=== PATIENT | female | born 1985 | race Caucasian/White ===

== ENCOUNTER 2016-09-09 12:26 | Emergency (ER) | payer OTHER ==
[2016-09-09] MEDS ORDERED: DEXAMETHASONE 4 MG TAB PO STA (12:52)
[2016-09-09] MEDS ORDERED: IPRATROPIUM-ALBUTEROL 3 ML NEB INHALATION STA (12:52)
--- NOTE | 2016-09-09 13:00 | ED ---
General Adult HPI - General Chief complaint: Upper Respiratory Infection Stated complaint: cough Time Seen by Provider: 09/09/16 12:40 Source: patient, RN notes reviewed Mode of arrival: ambulatory Limitations: no limitations - History of Present Illness Initial comments: 31-year-old female presenting for cough and congestion. Patient states symptoms began about a week ago and have been progressively worsening. She states that she has nonproductive cough. She does feel some mild wheezing and shortness of breath as well. She states she's developed some chest pain when she coughs. She denies any chest pressure. She denies any significant medical history. She does admit to tobacco abuse. She denies any fevers or chills. She denies any abdominal pain or nausea or vomiting. - Related Data Home Medications Medication Instructions Recorded Confirmed ARIPiprazole [Abilify] 5 mg PO DAILY 09/09/16 09/09/16 Cholecalciferol [Vitamin D3] 5,000 unit PO DAILY 09/09/16 09/09/16 Cyanocobalamin (Vitamin B-12) 10,000 mcg PO DAILY 09/09/16 09/09/16 [Vitamin B12] Famotidine [Pepcid] 20 mg PO BID 09/09/16 09/09/16 Previous Rx's Medication Instructions Recorded PARoxetine HCL [Paxil] 40 mg PO DAILY #7 tablet 07/15/16 Albuterol Inhaler [Ventolin Hfa 2 puff INHALATION Q6HR PRN #1 09/09/16 Inhaler] inhaler Azithromycin [Zithromax] 250 mg PO DAILY #6 tab 09/09/16 Benzonatate [Tessalon Perles] 100 mg PO TID PRN #16 cap 09/09/16 Allergies Allergy/AdvReac Type Severity Reaction Status Date / Time Penicillins Allergy Rash/Hives Verified 09/09/16 12:58 Review of Systems ROS Statement: Those systems with pertinent positive or pertinent negative responses have been documented in the HPI. ROS Other: All systems not noted in ROS Statement are negative. Past Medical History Past Medical History: Unable to Obtain Additional Past Medical History / Comment(s): migraines, scoliosis, chronic back pain, arthritis History of Any Multi-Drug Resistant Organisms: None Reported Past Surgical History: No Surgical Hx Reported Additional Past Surgical History / Comment(s): dental surgery Past Psychological History: Anxiety, Bipolar, Depression Additional Psychological History / Comment(s): Patient open with [facility] Smoking Status: Current every day smoker Past Alcohol Use History: None Reported Additional Past Alcohol Use History / Comment(s): Patient is a smoker of half pack a day for 15 years. She denies any medical marijuana, marijuana or street drug use although her drug screen is positive for cocaine and marijuana and methamphetamines. Patient states she is single. She has one son that she states has no major medical problems. Past Drug Use History: None Reported Additional Drug Use History / Comment(s): Patient states she has an alcoholic patient about once a week. General Exam - General Exam Comments Initial Comments: General: Awake and Alert. No acute distress. Does not appear acutely ill. Eyes: HANDY, EOM intact. No nystagmus. No scleral icterus. HENT: Atraumatic, normocephalic. Mucous membranes moist. Trachea midline. Neck: The neck is supple, there is no tenderness or JVD. Cardiovascular: Regular rate and rhythm. No murmur, rub, or gallop is appreciated. Distal pulses intact. Respiratory: Lungs are clear to auscultation bilaterally. There are mild diffuse expiratory wheezes. No rales, rhonchi. No respiratory distress. Gastrointestinal: Soft, Nontender. No rebound or guarding. Non-distended. No masses or organomegaly noted. No CVA tenderness. Musculoskeletal: No tenderness. Normal ROM. No gross deformity. No strength deficits. Neurological: A&Ox3. CN II-XII grossly intact, There are no obvious motor or sensory deficits. Coordination appears grossly intact. Speech is normal. Skin: Skin is warm and dry and no rashes or lesions are noted. Psychiatric: Cooperative, appropriate mood & affect, normal judgment. Limitations: no limitations Course Vital Signs 09/09/16 09/09/16 09/09/16 12:37 12:46 13:12 Temperature 97.4 F L Pulse Rate 86 72 Respiratory 16 22 Rate Blood Pressure 132/79 O2 Sat by Pulse 98 Oximetry 09/09/16 09/09/16 09/09/16 13:21 13:35 14:00 Temperature 97.9 F Pulse Rate 76 85 79 Respiratory 22 20 Rate Blood Pressure 128/61 O2 Sat by Pulse 98 99 Oximetry EKG Findings - EKG Comments: EKG Findings:: EKG 13:38. Normal sinus rhythm. Rate 76. NJ 138. QRS 88. QT/ QTC 404/454. Normal axis. No STEMI. Normal EKG. Medical Decision Making - Medical Decision Making 31-year-old female presenting for URI type symptoms. Patient does have mild wheezing on exam. Was given a dose of Decadron and breathing treatment with improvement of her symptoms. EKG without evidence of ischemia. Chest x-ray was performed without evidence of pneumonia. Discussed treating likely reactive airway disease as well as viral infection. Over the counter treatments discussed. Was also written for inhaler. Discussed smoking cessation. Patient is also written for Z-Herber although we discussed waiting to see if symptoms improve prior to filling this medication as this is likely a viral infection. Discussed concerning signs symptoms requiring immediate return to the ED. Patient is agreeable to plan of discharge home. - EKG Data -: EKG Interpreted by Me EKG shows normal: sinus rhythm Rate: normal - Radiology Data Radiology results: report reviewed, image reviewed Disposition Clinical Impression: URI (upper respiratory infection), RAD (reactive airway disease), Tobacco abuse Disposition: HOME SELF-CARE Condition: Stable Prescriptions: Albuterol Inhaler [Ventolin Hfa Inhaler] 2 puff INHALATION Q6HR PRN #1 inhaler PRN Reason: Shortness Of Breath Azithromycin [Zithromax] 250 mg PO DAILY #6 tab Benzonatate [Tessalon Perles] 100 mg PO TID PRN #16 cap PRN Reason: Cough Referrals: None,Stated [Primary Care Provider] - 1-2 days Time of Disposition: 13:44
--- NOTE | 2016-09-09 13:35 | XR ---
EXAMINATION TYPE: XR chest 2V DATE OF EXAM: 09/09/2016 1:32 PM COMPARISON: 07/15/2016 HISTORY: Shortness of breath TECHNIQUE: Frontal and lateral views of the chest are obtained. FINDINGS: There is no focal air space opacity, pleural effusion, or pneumothorax seen. The cardiac silhouette size is within normal limits. The osseous structures are intact. IMPRESSION: No acute cardiopulmonary process.
[2016-09-09 13:37] VITALS: BP 128/61
[2016-09-09 14:06] VITALS: PULSE 79; RESP 20; TEMP 97.9
== END 2016-09-09 14:00 | disposition home or self-care (01) ==
LOC: EC 12:26
DX: J06.9 Acute upper respiratory infection, unspecified (principal); J45.909 Unspecified asthma, uncomplicated; F17.200 Nicotine dependence, unspecified, uncomplicated; F31.9 Bipolar disorder, unspecified; F41.9 Anxiety disorder, unspecified; Z88.0 Allergy status to penicillin
CPT/HCPCS: 99283; 94640; 93005; 71020; J8540

== ENCOUNTER 2016-09-25 18:48 | Emergency (ER) | payer OTHER ==
--- NOTE | 2016-09-25 20:15 | ED ---
General Adult HPI - General Chief complaint: Upper Respiratory Infection Stated complaint: Chest Pain Time Seen by Provider: 09/25/16 20:02 Source: patient, RN notes reviewed, old records reviewed Mode of arrival: ambulatory Limitations: no limitations - History of Present Illness Initial comments: Chief complaint history of present illness a 29-year-old female here with a complaint of cough with chest wall pain from coughing for several days with a hoarse voice. Denies a fever productive cough. Deny get a flu shot this year. No runny nose - Related Data Home Medications Medication Instructions Recorded Confirmed ARIPiprazole [Abilify] 5 mg PO DAILY 09/09/16 09/25/16 Famotidine [Pepcid] 20 mg PO BID 09/09/16 09/25/16 Previous Rx's Medication Instructions Recorded PARoxetine HCL [Paxil] 40 mg PO DAILY #7 tablet 07/15/16 Azithromycin [Zithromax Z-pack] 250 mg PO DIRECTED #6 tab 09/25/16 Promethaz-Cod 6.25-10 mg/5 ml 5 ml PO Q6HR PRN #60 bottle 09/25/16 [Phenergan with Codeine] Allergies Allergy/AdvReac Type Severity Reaction Status Date / Time Penicillins Allergy Rash/Hives Verified 09/25/16 20:13 Review of Systems ROS Statement: Those systems with pertinent positive or pertinent negative responses have been documented in the HPI. Review of systems. Patient reports that she's had a cough with hoarse voice for almost a week. Denies fever. Complains chest wall pain with coughing and deep breathing. Otherwise no nausea vomiting diarrhea. All systems are reviewed past medical problems migraines scoliosis. Surgeries dental surgery. Family history retention. Patient smoke strongly encouraged stop reports ALLERGIES to penicillin. Drink alcohol socially. ROS Other: All systems not noted in ROS Statement are negative. Past Medical History Past Medical History: Unable to Obtain Additional Past Medical History / Comment(s): migraines, scoliosis, chronic back pain, arthritis History of Any Multi-Drug Resistant Organisms: None Reported Past Surgical History: No Surgical Hx Reported Additional Past Surgical History / Comment(s): dental surgery Past Psychological History: Anxiety, Bipolar, Depression Additional Psychological History / Comment(s): Patient open with [facility] Smoking Status: Current every day smoker Past Alcohol Use History: Occasional Additional Past Alcohol Use History / Comment(s): Patient is a smoker of half pack a day for 15 years. She denies any medical marijuana, marijuana or street drug use although her drug screen is positive for cocaine and marijuana and methamphetamines. Patient states she is single. She has one son that she states has no major medical problems. Past Drug Use History: None Reported Additional Drug Use History / Comment(s): Patient states she has an alcoholic patient about once a week. General Exam - General Exam Comments Initial Comments: General: The patient is awake and alert, complaining of painful cough ongoing for one week with hoarse voice. Denies fever or headache. Vital signs show temperature 97.6 pulse 97 respiratory rate 20 pulse ox 98% room air blood pressure 117/77 Eye: Pupils are equal, round and reactive to light, extra-ocular movements are intact ; there is normal conjunctiva bilaterally. No signs of icterus. Ears, nose, mouth and throat: There are moist mucous membranes pharynx mildly red no exudate. Neck: The neck is supple, there is no tenderness , no anterior cervical lymphadenopathy, thyroid not enlarged. Cardiovascular: There is a regular rate and rhythm. No murmur, rub or gallop is appreciated. Respiratory: Lungs are clear to auscultation, respirations are non-labored, breath sounds are equal. No wheezes, stridor, rales, or rhonchi. Frequent painful coughing. Anterior chest wall increases pain back increases pain with coughing Gastrointestinal: Soft, non-distended, non-tender abdomen without masses or organomegaly noted. There is no rebound or guarding present. No CVA tenderness. Bowel sounds are unremarkable. Back: There is no tenderness to palpation in the midline. There is no obvious deformity. No rashes noted. Coughing increases back pain Musculoskeletal: Normal ROM, no tenderness, There is no pedal edema. There is no calf tenderness or swelling. Sensation intact. Neurological: No complaint of any dizziness. No focal or lateralizing findings noted on exam. Skin: Skin is warm and dry and no rashes or lesions are noted. Limitations: no limitations Course Vital Signs 09/25/16 19:06 Temperature 97.6 F Pulse Rate 97 Respiratory 20 Rate Blood Pressure 117/77 O2 Sat by Pulse 98 Oximetry Medical Decision Making - Medical Decision Making Medical decision-making. The patient's chest x-ray was done and reviewed by radiologist his impression is heart and mediastinum are normal. Lungs are clear. Diaphragm is normal. Bony thorax appears normal. Impression normal chest. No change. She presents with bronchitis type picture should be placed on a Z-Herber to be taken as directed increase fluids. Given prescription for Phenergan with codeine to help control her irritated cough. Patient was told to follow-up with family physician Disposition Clinical Impression: Bronchitis Disposition: HOME SELF-CARE Condition: Fair Instructions: Upper Respiratory Infection (ED) Additional Instructions: Increase fluids, stop smoking/she can. Take Z-Herber as directed. 1 teaspoon of Phenergan with codeine every 4-6 hours for cough. Follow-up with family physician Prescriptions: Azithromycin [Zithromax Z-pack] 250 mg PO DIRECTED #6 tab Promethaz-Cod 6.25-10 mg/5 ml [Phenergan with Codeine] 5 ml PO Q6HR PRN #60 bottle PRN Reason: When necessary cough Time of Disposition: 22:37
--- NOTE | 2016-09-25 20:33 | XR ---
EXAMINATION TYPE: XR chest 2V DATE OF EXAM: 09/25/2016 8:26 PM COMPARISON: 09/09/2016 HISTORY: Cough and congestion TECHNIQUE: Frontal and lateral views of the chest are obtained. FINDINGS: Heart and mediastinum are normal. Lungs are clear. Diaphragm is normal. Bony thorax appear s normal. IMPRESSION: Normal chest. No change.
[2016-09-25 22:55] VITALS: BP 123/85; PULSE 100; RESP 18; TEMP 98.7
== END 2016-09-25 22:54 | disposition home or self-care (01) ==
LOC: EC 18:48
DX: J40 Bronchitis, not specified as acute or chronic (principal); F31.9 Bipolar disorder, unspecified; F41.9 Anxiety disorder, unspecified; F17.200 Nicotine dependence, unspecified, uncomplicated; Z79.899 Other long term (current) drug therapy; Z88.0 Allergy status to penicillin
CPT/HCPCS: 71020; 99284

== ENCOUNTER 2016-10-02 16:41 | Emergency (ER) | payer OTHER ==
[2016-10-02 16:56] VITALS: TEMP 97.5
[2016-10-02] MEDS ORDERED: IPRATROPIUM-ALBUTEROL 3 ML NEB INHALATION STA (17:15)
[2016-10-02] MEDS ORDERED: KETOROLAC 30 MG/ML 1 ML VIAL IVP STA (17:16)
[2016-10-02] MEDS ORDERED: BUTALB/APAP/CAFF 50-325-40MG TAB PO STA (17:16)
[2016-10-02] MEDS ORDERED: diphenhydrAMINE 50 MG/ML 1 ML VIAL IM STA (17:16)
[2016-10-02] MEDS ORDERED: ONDANSETRON ODT 4 MG TAB PO STA (17:17)
[2016-10-02] MEDS ORDERED: KETOROLAC 60 MG/2 ML VIAL IM STA (17:35)
--- NOTE | 2016-10-02 17:55 | XR ---
EXAMINATION TYPE: XR chest 2V DATE OF EXAM: 10/02/2016 5:31 PM COMPARISON: 09/25/2016 HISTORY: Cough and congestion TECHNIQUE: Frontal and lateral views of the chest are obtained. FINDINGS: Heart and mediastinum are normal. Lungs are clear. Diaphragm is normal. Bony thorax is int act. IMPRESSION: Normal chest. No change.
--- NOTE | 2016-10-02 17:59 | ED ---
General Adult HPI - General Chief complaint: Upper Respiratory Infection Stated complaint: Migraine, med refill Time Seen by Provider: 10/02/16 17:01 Source: patient, RN notes reviewed Mode of arrival: ambulatory Limitations: no limitations - History of Present Illness Initial comments: 31-year-old female presents emergency Department with multiple complaints. Patient states she has migraine headache consistent with a normal migraines. Patient states it's on the right side. Patient states she has chronic migraines. She states that normally she has come to the hospital for his medications. Patient denies any relief with ibuprofen. Denies any visual changes though she states she has no photophobia. Denies any chest pain shortness breath. She states that she still has had a slight cough and some wheezing from herupper respiratory infection in which she was treated with azithromycin 7 days ago. She states it is slightly better. Patient is a daily smoker though. Patient denies any vomiting, diarrhea. Patient has a focal weakness. - Related Data Home Medications Medication Instructions Recorded Confirmed ARIPiprazole [Abilify] 5 mg PO DAILY 09/09/16 10/02/16 Cholecalciferol [Vitamin D3] 5,000 unit PO DAILY 10/02/16 10/02/16 Previous Rx's Medication Instructions Recorded PARoxetine HCL [Paxil] 40 mg PO DAILY #7 tablet 07/15/16 methylPREDNISolone [Medrol Dose 4 mg PO DIRECTED #1 pack 10/02/16 Pack] Allergies Allergy/AdvReac Type Severity Reaction Status Date / Time Penicillins Allergy Rash/Hives Verified 10/02/16 17:03 Review of Systems ROS Statement: Those systems with pertinent positive or pertinent negative responses have been documented in the HPI. ROS Other: All systems not noted in ROS Statement are negative. Past Medical History Past Medical History: Unable to Obtain Additional Past Medical History / Comment(s): migraines, scoliosis, chronic back pain, arthritis History of Any Multi-Drug Resistant Organisms: None Reported Past Surgical History: No Surgical Hx Reported Additional Past Surgical History / Comment(s): dental surgery Past Psychological History: Anxiety, Bipolar, Depression Additional Psychological History / Comment(s): Patient open with [facility] Smoking Status: Current every day smoker Past Alcohol Use History: Occasional Additional Past Alcohol Use History / Comment(s): Patient is a smoker of half pack a day for 15 years. She denies any medical marijuana, marijuana or street drug use although her drug screen is positive for cocaine and marijuana and methamphetamines. Patient states she is single. She has one son that she states has no major medical problems. Past Drug Use History: None Reported Additional Drug Use History / Comment(s): Patient states she has an alcoholic patient about once a week. General Exam Limitations: no limitations General appearance: alert, in no apparent distress Head exam: Present: atraumatic, normocephalic, normal inspection Eye exam: Present: normal appearance, PERRL, EOMI. Absent: scleral icterus, conjunctival injection, periorbital swelling ENT exam: Present: normal exam, normal oropharynx, mucous membranes moist, TM's normal bilaterally, normal external ear exam Neck exam: Present: normal inspection, full ROM. Absent: tenderness, meningismus, lymphadenopathy Respiratory exam: Present: wheezes. Absent: normal lung sounds bilaterally, respiratory distress, rales, rhonchi, stridor Cardiovascular Exam: Present: regular rate, normal rhythm, normal heart sounds. Absent: systolic murmur, diastolic murmur, rubs, gallop, clicks GI/Abdominal exam: Present: soft, normal bowel sounds. Absent: distended, tenderness, guarding, rebound, rigid Neurological exam: Present: alert, oriented X3, CN II-XII intact, reflexes normal. Absent: motor sensory deficit Skin exam: Present: warm, dry, intact, normal color. Absent: rash Course Vital Signs 10/02/16 10/02/16 10/02/16 16:53 17:46 17:53 Temperature 97.5 F L Pulse Rate 89 68 70 Respiratory 18 Rate Blood Pressure 131/80 O2 Sat by Pulse 98 Oximetry Medical Decision Making - Medical Decision Making 31-year-old female presents emergency department tingling headache. Patient states her headache is slightly improved that she is requesting further pain medication. Patient be given additional meds discharge. Patient has no neurological deficits. Patient's headache consistent with her prior headaches. Patient's chest x-ray shows no acute abnormality. He states that she does feel better after breathing treatment. Patient was counseled detailed quit smoking 5 minutes. Patient was started on a Medrol Dosepak at this time. Disposition Clinical Impression: Acute bronchospasm, URI (upper respiratory infection), Migraine Disposition: HOME SELF-CARE Condition: Stable Instructions: Migraine Headache (ED) Additional Instructions: Please return to the Emergency Department if symptoms worsen or any other concerns. Prescriptions: methylPREDNISolone [Medrol Dose Pack] 4 mg PO DIRECTED #1 pack Time of Disposition: 18:03
[2016-10-02] MEDS ORDERED: HYDROcodone/APAP 5-325MG 1 EACH TAB PO STA (18:01)
[2016-10-02 18:13] VITALS: BP 120/67; PULSE 72; RESP 16
== END 2016-10-02 18:13 | disposition home or self-care (01) ==
LOC: EC 16:41
DX: J98.01 Acute bronchospasm (principal); G43.909 Migraine, unspecified, not intractable, without status migrainosus; J06.9 Acute upper respiratory infection, unspecified; F31.9 Bipolar disorder, unspecified; F41.9 Anxiety disorder, unspecified; F17.200 Nicotine dependence, unspecified, uncomplicated; Z79.899 Other long term (current) drug therapy; Z88.0 Allergy status to penicillin
CPT/HCPCS: 94640; 71020; 99283; 96372 ×2; J1200; J1885

== ENCOUNTER 2016-10-13 07:11 | Emergency (ER) | payer OTHER ==
[2016-10-13 07:20] VITALS: TEMP 98.2
[2016-10-13] MEDS ORDERED: IPRATROPIUM-ALBUTEROL 3 ML NEB INHALATION STA (07:37)
[2016-10-13] MEDS ORDERED: predniSONE 50 MG TAB PO STA (07:38)
--- NOTE | 2016-10-13 07:45 | ED ---
URI HPI - General Chief Complaint: Upper Respiratory Infection Stated Complaint: SOB Time Seen by Provider: 10/13/16 07:30 Source: patient, RN notes reviewed Mode of arrival: ambulatory Limitations: no limitations - History of Present Illness Initial Comments: This is a 29-year-old female who presents with complaints of a dry cough hot and cold flashes and feelings of her respiratory infection with some left ear pain. She denies any overt fevers chills or sweats she states she recently was treated with antibiotics and cough medication he got better than came back. Patient does admit to being a daily smoker. She does have an inhaler that she does use sometimes at home. She also complains of left anterior and right posterior chest discomfort. Somewhat sharp and increases with breathing and coughing. Patient also states she is on Depo-Provera and is not MD Complaint: cough - Related Data Home Medications Medication Instructions Recorded Confirmed ARIPiprazole [Abilify] 5 mg PO DAILY 09/09/16 10/13/16 Cholecalciferol [Vitamin D3] 5,000 unit PO DAILY 10/02/16 10/13/16 Fluticasone Nasal [place] [Flonase 1 spray EA NOSTRIL DAILY 10/13/16 10/13/16 Nasal [place]] Ibuprofen [Motrin] 800 mg PO TID PRN 10/13/16 10/13/16 Loratadine [Loratadine] 10 mg PO DAILY 10/13/16 10/13/16 Previous Rx's Medication Instructions Recorded PARoxetine HCL [Paxil] 40 mg PO DAILY #7 tablet 10/02/16 Ciprofloxacin HCl [Cipro] 500 mg PO Q12HR #10 tablet 10/13/16 predniSONE 20 mg PO BID #10 tab 10/13/16 Allergies Allergy/AdvReac Type Severity Reaction Status Date / Time Penicillins Allergy Rash/Hives Verified 10/13/16 07:20 Review of Systems ROS Statement: Those systems with pertinent positive or pertinent negative responses have been documented in the HPI. ROS Other: All systems not noted in ROS Statement are negative. Past Medical History Past Medical History: Unable to Obtain Additional Past Medical History / Comment(s): migraines, scoliosis, chronic back pain, arthritis History of Any Multi-Drug Resistant Organisms: None Reported Past Surgical History: No Surgical Hx Reported Additional Past Surgical History / Comment(s): dental surgery Past Psychological History: Anxiety, Bipolar, Depression Additional Psychological History / Comment(s): Patient open with [facility] Smoking Status: Current every day smoker Past Alcohol Use History: Occasional Additional Past Alcohol Use History / Comment(s): Patient is a smoker of half pack a day for 15 years. She denies any medical marijuana, marijuana or street drug use although her drug screen is positive for cocaine and marijuana and methamphetamines. Patient states she is single. She has one son that she states has no major medical problems. Past Drug Use History: None Reported Additional Drug Use History / Comment(s): Patient states she has an alcoholic patient about once a week. General Exam - General Exam Comments Initial Comments: This is a well-developed well-nourished awake alert oriented 2 female Limitations: no limitations General appearance: alert, in no apparent distress Head exam: Present: atraumatic, normocephalic, normal inspection Eye exam: Present: normal appearance, PERRL, EOMI. Absent: scleral icterus, conjunctival injection, periorbital swelling ENT exam: Present: mucous membranes moist, TM's normal bilaterally, other (Mild pharyngeal hyperemia no exudates) Neck exam: Present: normal inspection. Absent: tenderness, meningismus, lymphadenopathy Respiratory exam: Present: wheezes, chest wall tenderness, decreased breath sounds Cardiovascular Exam: Present: regular rate, normal rhythm, normal heart sounds. Absent: systolic murmur, diastolic murmur, rubs, gallop, clicks GI/Abdominal exam: Present: soft, normal bowel sounds. Absent: distended, tenderness, guarding, rebound, rigid Extremities exam: Present: normal inspection, full ROM, normal capillary refill. Absent: tenderness, pedal edema, joint swelling, calf tenderness Back exam: Present: normal inspection Neurological exam: Present: alert, oriented X3, CN II-XII intact Psychiatric exam: Present: normal affect, normal mood Skin exam: Present: warm, dry, intact, normal color. Absent: rash Course Vital Signs 10/13/16 10/13/16 10/13/16 07:18 07:52 08:03 Temperature 98.2 F Pulse Rate 89 92 92 Respiratory 20 Rate Blood Pressure 124/71 O2 Sat by Pulse 100 Oximetry - Reevaluation(s) Reevaluation #1: 10/13/16 08:10 I did discuss smoking risks and cessation need with the patient the conversation lasted 3.1 minutes. Medical Decision Making - Medical Decision Making I did reevaluate the patient and her lung sounds are clear she is feeling somewhat improved she will be discharged I did have another conversation regarding smoking cessation with her. - EKG Data -: EKG Interpreted by Me EKG shows normal: sinus rhythm, axis, intervals, QRS complexes, ST-T waves (EKG shows normal sinus rhythm of 74 NV interval 138 QRS duration 86 daily since QTC of 14/455 st-t wave changes) Rate: normal - Radiology Data Radiology results: report reviewed (Right upper lobe early infiltrate), image reviewed Disposition Clinical Impression: Right upper lobe pneumonia, Bronchospasm, acute, Smoking Disposition: HOME SELF-CARE Condition: Good Instructions: Pneumonia (ED), Bronchospasm (ED) Prescriptions: Ciprofloxacin HCl [Cipro] 500 mg PO Q12HR #10 tablet predniSONE 20 mg PO BID #10 tab
--- NOTE | 2016-10-13 08:13 | XR ---
EXAMINATION TYPE: XR chest 2V DATE OF EXAM: 10/13/2016 8:08 AM HISTORY: cough. REFERENCE: Previous study dated 10/02/2016. FINDINGS: There is a developing opacity in the right upper lobe. This may represent some atelectasis. It may also represent early pneumonia. The heart is not enlarged. The lungs are clear. IMPRESSION: DEVELOPING RIGHT UPPER LOBE OPACITY MAY REPRESENT EARLY PNEUMONIA.
[2016-10-13] MEDS ORDERED: IBUPROFEN 800 MG TAB PO STA (08:40)
[2016-10-13 09:07] VITALS: BP 120/58; PULSE 90; RESP 16
== END 2016-10-13 09:06 | disposition home or self-care (01) ==
LOC: EC 07:11
DX: J18.9 Pneumonia, unspecified organism (principal); J98.01 Acute bronchospasm; F41.9 Anxiety disorder, unspecified; F31.9 Bipolar disorder, unspecified; F17.200 Nicotine dependence, unspecified, uncomplicated; Z88.0 Allergy status to penicillin; Z79.899 Other long term (current) drug therapy; Z79.51 Long term (current) use of inhaled steroids
CPT/HCPCS: 99283; 94640; 93005; 71020; J7512

== ENCOUNTER 2016-12-06 11:13 | Emergency (ER) | payer OTHER ==
[2016-12-06] MEDS ORDERED: IPRATROPIUM-ALBUTEROL 3 ML NEB INHALATION STA (11:40)
[2016-12-06] MEDS ORDERED: methylPREDNISolone SOD SUCCI 125 MG/2 ML VIAL IM ONE (11:40)
--- NOTE | 2016-12-06 11:54 | XR ---
EXAMINATION TYPE: XR chest 2V DATE OF EXAM: 12/06/2016 11:48 AM COMPARISON: Prior chest x-ray 13 October 2016 HISTORY: Shortness of breath, Abnormal chest x-ray, bronchitis and pain TECHNIQUE: Frontal and lateral views of the chest are obtained. FINDINGS: There is no focal air space opacity, pleural effusion, or pneumothorax seen. The cardiac silhouette size is within normal limits. Lung volumes remain prominent suggesting underlying COPD. Patient is rotated. The osseous structures are intact. IMPRESSION: No acute cardiopulmonary process.
--- NOTE | 2016-12-06 12:11 | ED ---
URI HPI - General Chief Complaint: Upper Respiratory Infection Stated Complaint: michael Time Seen by Provider: 12/06/16 11:35 Source: patient, RN notes reviewed Mode of arrival: wheelchair Limitations: no limitations - History of Present Illness Initial Comments: 31-year-old female presents emergency Department chief complaint cough and cold- like symptoms. Patient states she has been cycle last few days, shortness of breath. Patient has COPD, chronic bronchitis. Patient said no fevers no chills. States her cough is slightly productive. Patient states she's not taking any [id number] cough and cold medications. Patient continues to smoke. Patient also states that she is out of her Paxil. Patient denies any suicidal or homicidal thoughts. - Related Data Home Medications Medication Instructions Recorded Confirmed ARIPiprazole [Abilify] 5 mg PO DAILY 09/09/16 12/06/16 Cholecalciferol [Vitamin D3] 5,000 unit PO DAILY 10/02/16 12/06/16 Fluticasone Nasal [place] [Flonase 1 spray EA NOSTRIL DAILY 10/13/16 12/06/16 Nasal [place]] Ibuprofen [Motrin] 800 mg PO TID PRN 10/13/16 12/06/16 Loratadine [Loratadine] 10 mg PO DAILY 10/13/16 12/06/16 Previous Rx's Medication Instructions Recorded Albuterol Sulfate [Proair Hfa] 1 - 2 puff INHALATION Q4HR PRN #1 12/06/16 inhaler Azithromycin [Zithromax Z-pack] 0 mg PO DIRECTED #1 pack 12/06/16 PARoxetine HCL [Paxil] 40 mg PO DAILY #7 tablet 12/06/16 methylPREDNISolone [Medrol Dose 4 mg PO DIRECTED #1 pack 12/06/16 Pack] Allergies Allergy/AdvReac Type Severity Reaction Status Date / Time Penicillins Allergy Rash/Hives Verified 12/06/16 11:39 Review of Systems ROS Statement: Those systems with pertinent positive or pertinent negative responses have been documented in the HPI. ROS Other: All systems not noted in ROS Statement are negative. Past Medical History Past Medical History: COPD Additional Past Medical History / Comment(s): migraines, scoliosis, chronic back pain, arthritis, chronic bronchitis History of Any Multi-Drug Resistant Organisms: None Reported Past Surgical History: No Surgical Hx Reported Additional Past Surgical History / Comment(s): dental surgery Past Psychological History: Anxiety, Bipolar, Depression Additional Psychological History / Comment(s): Patient open with [facility] Smoking Status: Current every day smoker Past Alcohol Use History: Occasional Additional Past Alcohol Use History / Comment(s): Patient is a smoker of half pack a day for 15 years. She denies any medical marijuana, marijuana or street drug use although her drug screen is positive for cocaine and marijuana and methamphetamines. Patient states she is single. She has one son that she states has no major medical problems. Past Drug Use History: None Reported Additional Drug Use History / Comment(s): Patient states she has an alcoholic patient about once a week. General Exam Limitations: no limitations General appearance: alert, in no apparent distress Head exam: Present: atraumatic, normocephalic, normal inspection Eye exam: Present: normal appearance, PERRL, EOMI. Absent: scleral icterus, conjunctival injection, periorbital swelling ENT exam: Present: mucous membranes moist, TM's normal bilaterally, normal external ear exam. Absent: normal oropharynx (Edentulous) Neck exam: Present: normal inspection, full ROM. Absent: tenderness, meningismus, lymphadenopathy Respiratory exam: Present: wheezes (Bilateral throughout). Absent: normal lung sounds bilaterally, respiratory distress, rales, rhonchi, stridor Cardiovascular Exam: Present: regular rate, normal rhythm, normal heart sounds. Absent: systolic murmur, diastolic murmur, rubs, gallop, clicks Neurological exam: Present: alert, oriented X3, CN II-XII intact Course Vital Signs 12/06/16 11:16 Temperature 96.9 F L Pulse Rate 94 Respiratory 22 Rate Blood Pressure 123/76 O2 Sat by Pulse 94 L Oximetry - Reevaluation(s) Reevaluation #1: 12/06/16 12:09 Patient is complaining that the steroid shot is hurting her left arm that it's burning. Patient was initially refusing breathing treatment but she states she' ll take at this time. She was off and ice pack refused. Medical Decision Making - Medical Decision Making 31-year-old female presented for cough and cold-like symptoms. Patient has mild exacerbation of her COPD, chronic bronchitis. Patient is doing better after DuoNeb treatment. Patient was given IM injection of steroids. Patient will be discharged with inhaler, steroids and antibiotics. Patient was also given refill her Paxil. Return parameters were discussed. Disposition Clinical Impression: COPD exacerbation, Medication refill Disposition: HOME SELF-CARE Condition: Stable Instructions: COPD (Chronic Obstructive Pulmonary Disease) (ED) Additional Instructions: Stop smoking.Please return to the Emergency Department if symptoms worsen or any other concerns. Prescriptions: Albuterol Sulfate [Proair Hfa] 1 - 2 puff INHALATION Q4HR PRN #1 inhaler PRN Reason: difficulty in breathing Azithromycin [Zithromax Z-pack] 0 mg PO DIRECTED #1 pack PARoxetine HCL [Paxil] 40 mg PO DAILY #7 tablet methylPREDNISolone [Medrol Dose Pack] 4 mg PO DIRECTED #1 pack Referrals: None,Stated [Primary Care Provider] - 1-2 days Time of Disposition: 12:11
[2016-12-06 12:21] VITALS: BP 125/80; RESP 18; TEMP 97.4
[2016-12-06 12:28] VITALS: PULSE 96
== END 2016-12-06 12:40 | disposition home or self-care (01) ==
LOC: EC 11:13
DX: J44.1 Chronic obstructive pulmonary disease with (acute) exacerbation (principal); F31.9 Bipolar disorder, unspecified; F41.9 Anxiety disorder, unspecified; F17.200 Nicotine dependence, unspecified, uncomplicated; Z76.0 Encounter for issue of repeat prescription; Z79.899 Other long term (current) drug therapy; Z88.0 Allergy status to penicillin
CPT/HCPCS: 94640; 71020; 99283; 96372; J2930

== ENCOUNTER 2016-12-15 20:04 | Emergency (ER) | payer OTHER ==
[2016-12-15 20:17] VITALS: RESP 18
--- NOTE | 2016-12-15 20:40 | ED ---
Alcohol HPI - General Chief Complaint: Alcohol Stated Complaint: ETOH Time Seen by Provider: 12/15/16 20:07 Source: police, RN notes reviewed, old records reviewed Mode of arrival: EMS - History of Present Illness Initial Comments: This is a 31-year-old female presenting to emergency Department with chief complaint of INTOXICATION and depression. Patient denies any suicidal thoughts. Patient reports that she was found on the side of the road. She did arrive via [place] [employer]. They state that she does have a warrant for rest and she will be picked up by the police for this afterwards. Patient denies any specific injuries however she is intoxicated and cannot give a full history. Patient denies any pain at this time. - Related Data Home Medications Medication Instructions Recorded Confirmed ARIPiprazole [Abilify] 5 mg PO DAILY 09/09/16 12/15/16 Cholecalciferol [Vitamin D3] 5,000 unit PO DAILY 10/02/16 12/15/16 Fluticasone Nasal [place] [Flonase 1 spray EA NOSTRIL DAILY 10/13/16 12/15/16 Nasal [place]] Ibuprofen [Motrin] 800 mg PO TID PRN 10/13/16 12/15/16 Loratadine [Loratadine] 10 mg PO DAILY 10/13/16 12/15/16 Cyanocobalamin (Vitamin B-12) 1,000 mcg PO DAILY 12/15/16 12/15/16 [Vitamin B-12] Previous Rx's Medication Instructions Recorded Albuterol Sulfate [Proair Hfa] 1 - 2 puff INHALATION Q4HR PRN #1 12/06/16 inhaler PARoxetine HCL [Paxil] 40 mg PO DAILY #7 tablet 12/06/16 Allergies Allergy/AdvReac Type Severity Reaction Status Date / Time Penicillins Allergy Rash/Hives Verified 12/15/16 21:08 Review of Systems ROS Statement: Those systems with pertinent positive or pertinent negative responses have been documented in the HPI. ROS Other: All systems not noted in ROS Statement are negative. Past Medical History Past Medical History: COPD Additional Past Medical History / Comment(s): migraines, scoliosis, chronic back pain, arthritis, chronic bronchitis History of Any Multi-Drug Resistant Organisms: None Reported Past Surgical History: No Surgical Hx Reported Additional Past Surgical History / Comment(s): dental surgery Past Psychological History: Anxiety, Bipolar, Depression Additional Psychological History / Comment(s): [facility] Smoking Status: Current every day smoker Past Alcohol Use History: Occasional Additional Past Alcohol Use History / Comment(s): Patient is a smoker of half pack a day for 15 years. She denies any medical marijuana, marijuana or street drug use although her drug screen is positive for cocaine and marijuana and methamphetamines. Patient states she is single. She has one son that she states has no major medical problems. Past Drug Use History: None Reported Additional Drug Use History / Comment(s): Patient states she has an alcoholic patient about once a week. General Exam - General Exam Comments Initial Comments: This is a 31-year-old female. Patient does appear acutely intoxicated. General appearance: alert, in no apparent distress Head exam: Present: atraumatic, normocephalic, normal inspection Eye exam: Present: normal appearance, PERRL, EOMI. Absent: scleral icterus, conjunctival injection, periorbital swelling ENT exam: Present: normal exam, mucous membranes moist Neck exam: Present: normal inspection. Absent: tenderness, meningismus, lymphadenopathy Respiratory exam: Present: normal lung sounds bilaterally. Absent: respiratory distress, wheezes, rales, rhonchi, stridor Cardiovascular Exam: Present: regular rate, normal rhythm, normal heart sounds. Absent: systolic murmur, diastolic murmur, rubs, gallop, clicks GI/Abdominal exam: Present: soft, normal bowel sounds. Absent: distended, tenderness, guarding, rebound, rigid Extremities exam: Present: normal inspection, full ROM, normal capillary refill. Absent: tenderness, pedal edema, joint swelling, calf tenderness Back exam: Present: normal inspection Neurological exam: Present: alert, oriented X3, CN II-XII intact Psychiatric exam: Present: normal affect, normal mood Skin exam: Present: warm, dry, intact, normal color. Absent: rash Course Vital Signs 12/15/16 12/16/16 20:13 03:37 Temperature 98.0 F 97.2 F L Pulse Rate 18 L 67 Respiratory 18 18 Rate Blood Pressure 104/53 102/50 O2 Sat by Pulse 99 96 Oximetry - Reevaluation(s) Reevaluation #1: 12/15/16 21:42 Vision is reevaluated. Patient is sleeping at this time. She'll get an IV with fluids. Scan was reviewed as negative. Reevaluation #2: 12/16/16 00:18 Patient was reevaluated and alert and oriented. She is complaining of heartburn after she vomited. Patient be given a GI cocktail. At this point patient is medically clear at this time to proceed to senior living. . He is contacted. Reevaluation #3: 12/16/16 01:12 Patient account to be discharged. PD. That point before noted a sling. PD were there she stated that she suicidal. Patient is sober in one hour. She will be viral by EPS at that time. Reevaluation #4: 12/16/16 03:07 Patient was reevaluated. EPS to see her and talk to the patient for GC that she is not really suicidal. Medical Decision Making - Medical Decision Making This is an intoxicated 31-year-old female presents the emergency department. Patient was brought in via PD and stated that he found on the corner. She reports that she is depressed but denies any suicidal thoughts. She states that she does drink regularly. Patient arrives in her blood levels 0.176. CT brain was performed due to the patient lack of good history and alcohol intoxication. CT brain is negative for any acute process. Evidence of rhinosinusitis. Patient is alert and oriented at this time. Patient was reevaluated before police could pick her up. Patient states that she is now suicidal, denies plan. Patient medically clear for evaluation by EPS at 2 in the morning. EPS to evaluate the patient felt that she is not actively suicidal. Patient retractor statement states that she has no plan and does not feel suicidal this time. Upon discharge patient will be picked up by [place] [employer] Department and will be placed in senior living due to a warrant for her arrest. Patient was informed the results and cooperative. She is medically clear for senior living this time. - Radiology Data Radiology results: report reviewed No acute intracranial abnormality. Extensive sinusitis. There may be expansion of the abnormality in the left maxillary sinus with no definite bone destruction. This could relate to a mucocele. Sinusitis is worse than old exam. Disposition Clinical Impression: Alcohol intoxication, Heart burn, Depression Disposition: HOME SELF-CARE Condition: Good Instructions: Alcohol Intoxication (ED) Additional Instructions: Patient advised to follow up with her primary care physician. Patient should return the emergency department if any alarming signs or symptoms occur. Referrals: Padmini Mcdonald MD [STAFF PHYSICIAN] - 1-2 days Time of Disposition: 00:19
--- NOTE | 2016-12-15 21:01 | CT ---
EXAMINATION TYPE: CT brain wo con DATE OF EXAM: 12/15/2016 8:50 PM COMPARISON: 07/15/2016 HISTORY: Patient poor historian CT DLP: 1098.8 mGycm Automated exposure control for dose reduction was used. FINDINGS: Ventricles and sulci appear normal. There is no mass effect nor midline shift. There is no sign of in tracranial hemorrhage. The calvarium is intact. There is opacification of left maxillary sinus with s ome expansion into the nasopharynx. There is extensive mucosal thickening in the ethmoid sinus. There is moderate mucosal thickening in the right maxillary sinus. IMPRESSION: No acute intracranial abnormality. Extensive sinusitis. There is some expansion of the abnormality in the left maxillary sinus with no definite bone destruction. This could relate to a mucocele. Sinusit is is worse than old exam.
[2016-12-15] MEDS ORDERED: SODIUM CHLORIDE 0.9% 1,000 ML IV STA (21:38)
[2016-12-15] MEDS ORDERED: ONDANSETRON 4 MG/2 ML VIAL IVP STA (23:06)
[2016-12-16] MEDS ORDERED: MAG HYDROX/AL HYDROX/SIMETH 30 ML, HYOSCYAMINE ELIXIR 10 ML, CIMETIDINE HCL 300 MG PO STA ×3 (00:05)
[2016-12-16 03:40] VITALS: BP 102/50; PULSE 67; TEMP 97.2
== END 2016-12-16 03:37 | disposition home or self-care (01) ==
LOC: EC 20:04
DX: F10.129 Alcohol abuse with intoxication, unspecified (principal); F31.9 Bipolar disorder, unspecified; J32.9 Chronic sinusitis, unspecified; J44.9 Chronic obstructive pulmonary disease, unspecified; M19.90 Unspecified osteoarthritis, unspecified site; F17.200 Nicotine dependence, unspecified, uncomplicated; Z79.51 Long term (current) use of inhaled steroids; Z79.899 Other long term (current) drug therapy; Z88.0 Allergy status to penicillin
CPT/HCPCS: 70450; 99285; 96374; 96361; J2405

== ENCOUNTER 2017-04-30 13:10 | Inpatient (IN) | payer OTHER ==
[2017-04-30] MEDS ORDERED: ACETAMINOPHEN TAB 500 MG TAB PO STA (13:41)
[2017-04-30] MEDS ORDERED: IPRATROPIUM-ALBUTEROL 3 ML NEB INHALATION STA ×2 (13:41→15:40)
[2017-04-30] MEDS ORDERED: methylPREDNISolone SOD SUCCI 125 MG/2 ML VIAL IV STA (13:41)
[2017-04-30] MEDS ORDERED: SODIUM CHLORIDE 0.9% 1,000 ML IV STA (13:41)
--- NOTE | 2017-04-30 13:46 | ED ---
URI HPI <Catalino Wallace - Last Filed: 04/30/17 16:24> - General Source: patient, RN notes reviewed, old records reviewed Mode of arrival: ambulatory Limitations: no limitations <Ligia Mckeon - Last Filed: 04/30/17 16:26> - General Chief Complaint: Upper Respiratory Infection Stated Complaint: Difficulty Breathing Time Seen by Provider: 04/30/17 13:40 - History of Present Illness Initial Comments: this is a 32-year-old female presents emergency department chief complaint of increased shortness of breath over the past 2 days. Patient is a smoker. She also reports that she's had a fever, but has had some Motrin earlier today. Patient states that she's had a cough, she feels like it hurts deep with her life but whenever she coughed she's not able to bring anything up. Denies any history of sick contacts. She reports that she does feel nauseated once a throat at this time. Denies any specific abdominal pain. Denies any chance of . She does spread and she has history of chronic back pain. (Ligia Mckeon) - Related Data Home Medications Medication Instructions Recorded Confirmed ARIPiprazole [Abilify] 5 mg PO DAILY 09/09/16 04/30/17 Cholecalciferol [Vitamin D3] 5,000 unit PO DAILY 10/02/16 04/30/17 Acetaminophen Tab [Tylenol Tab] 650 mg PO Q4H PRN 04/30/17 04/30/17 Omeprazole 20 mg PO BID 04/30/17 04/30/17 Previous Rx's Medication Instructions Recorded PARoxetine HCL [Paxil] 40 mg PO DAILY #7 tablet 12/06/16 Allergies Allergy/AdvReac Type Severity Reaction Status Date / Time Penicillins Allergy Rash/Hives Verified 04/30/17 14:15 Review of Systems ROS Other: All systems not noted in ROS Statement are negative. <Catalino Wallace - Last Filed: 04/30/17 16:24> ROS Other: All systems not noted in ROS Statement are negative. <Ligia Mckeon - Last Filed: 04/30/17 16:26> ROS Statement: Those systems with pertinent positive or pertinent negative responses have been documented in the HPI. Past Medical History Past Medical History: COPD Additional Past Medical History / Comment(s): migraines, scoliosis, chronic back pain, arthritis, chronic bronchitis History of Any Multi-Drug Resistant Organisms: None Reported Past Surgical History: No Surgical Hx Reported Additional Past Surgical History / Comment(s): dental surgery Past Psychological History: Anxiety, Bipolar, Depression Smoking Status: Current every day smoker Past Alcohol Use History: Occasional Past Drug Use History: None Reported <Ligia Mckeon - Last Filed: 04/30/17 16:26> General Exam <Catalino Wallace - Last Filed: 04/30/17 16:24> Limitations: no limitations General appearance: alert Head exam: Present: atraumatic, normocephalic, normal inspection Eye exam: Present: normal appearance, PERRL, EOMI. Absent: scleral icterus, conjunctival injection, periorbital swelling ENT exam: Present: normal exam, normal oropharynx, mucous membranes moist Neck exam: Present: normal inspection. Absent: tenderness, meningismus, lymphadenopathy Respiratory exam: Present: wheezes, rhonchi. Absent: normal lung sounds bilaterally, respiratory distress, rales, stridor Cardiovascular Exam: Present: regular rate, normal rhythm, normal heart sounds. Absent: systolic murmur, diastolic murmur, rubs, gallop, clicks GI/Abdominal exam: Present: soft, normal bowel sounds. Absent: distended, tenderness, guarding, rebound, rigid Extremities exam: Present: normal inspection, full ROM, normal capillary refill. Absent: tenderness, pedal edema, joint swelling, calf tenderness Back exam: Present: normal inspection Neurological exam: Present: alert, oriented X3, CN II-XII intact Psychiatric exam: Present: normal affect, normal mood Skin exam: Present: warm, dry, intact, normal color. Absent: rash <Ligia Mckeon - Last Filed: 04/30/17 16:26> - General Exam Comments Initial Comments: this is a 32-year-old female. Patient appears to be in moderate discomfort.patient is diaphoretic. (Ligia Mckeon) Medical Decision Making - Lab Data Result diagrams: 04/30/17 14:00 04/30/17 14:00 <Catalino Wallace - Last Filed: 04/30/17 16:24> - Lab Data Result diagrams: 04/30/17 14:00 04/30/17 14:00 - Radiology Data Radiology results: report reviewed <Ligia Mckeon - Last Filed: 04/30/17 16:26> - Medical Decision Making The patient was seen and examined. All diagnostics were reviewed. The case is discussed with internal medicine and they are agreeable to admission. The case is discussed with the PA and I agree with the findings as documented. (Catalino Wallace) 32-year-old female chief complaint of increased shortness of breath for the past 3 days. Chest x-ray shows evidence of significant bilateral pneumonia. Patient white count is elevated 17.4. Patient was given 3 DuoNeb breathing treatments, still continues to have wheezing and rhonchi.. Also started on IV Levaquin and Solu-Medrol. Patient does report that she smokes half a pack a day. Denies any IV drug use or any other immunocompromised illnesses. Patient will be admitted at this time for pneumonia, patient does meet sepsis criteria. patient name and a for IV antibiotic, breathing treatments. Patient admitted to [facility] physicians . (Ligia Mckeon) - Lab Data Lab Results 04/30/17 04/30/17 04/30/17 Range/Units 14:00 14:00 14:00 WBC 17.4 H (3.8-10.6) k/uL RBC 4.39 (3.80-5.40) m/uL Hgb 14.7 (11.4-16.0) gm/dL Hct 43.7 (34.0-46.0) % MCV 99.6 (80.0-100.0) fL MCH 33.5 (25.0-35.0) pg MCHC 33.7 (31.0-37.0) g/dL RDW 12.9 (11.5-15.5) % Plt Count 249 (150-450) k/uL Neutrophils % 91 % Lymphocytes % 5 % Monocytes % 3 % Eosinophils % 1 % Basophils % 0 % Neutrophils # 15.8 H (1.3-7.7) k/uL Lymphocytes # 0.9 L (1.0-4.8) k/uL Monocytes # 0.5 (0-1.0) k/uL Eosinophils # 0.1 (0-0.7) k/uL Basophils # 0.0 (0-0.2) k/uL Sodium 137 (137-145) mmol/L Potassium 3.4 L (3.5-5.1) mmol/L Chloride 107 (98-107) mmol/L Carbon Dioxide 22 (22-30) mmol/L Anion Gap 8 mmol/L BUN 8 (7-17) mg/dL Creatinine 0.60 (0.52-1.04) mg/dL Est GFR (MDRD) Af Amer >60 (>60 ml/min/1.73 sqM) Est GFR (MDRD) Non-Af >60 (>60 ml/min/1.73 sqM) Glucose 185 H (74-99) mg/dL Plasma Lactic Acid Cj 2.0 (0.7-2.0) mmol/L Calcium 8.9 (8.4-10.2) mg/dL Total Bilirubin 0.6 (0.2-1.3) mg/dL AST 30 (14-36) U/L ALT 42 (9-52) U/L Alkaline Phosphatase 46 (38-126) U/L Total Protein 5.6 L (6.3-8.2) g/dL Albumin 3.2 L (3.5-5.0) g/dL Influenza Type A RNA (Not Detectd) Influenza Type B (PCR) (Not Detectd) 04/30/17 Range/Units 14:45 WBC (3.8-10.6) k/uL RBC (3.80-5.40) m/uL Hgb (11.4-16.0) gm/dL Hct (34.0-46.0) % MCV (80.0-100.0) fL MCH (25.0-35.0) pg MCHC (31.0-37.0) g/dL RDW (11.5-15.5) % Plt Count (150-450) k/uL Neutrophils % % Lymphocytes % % Monocytes % % Eosinophils % % Basophils % % Neutrophils # (1.3-7.7) k/uL Lymphocytes # (1.0-4.8) k/uL Monocytes # (0-1.0) k/uL Eosinophils # (0-0.7) k/uL Basophils # (0-0.2) k/uL Sodium (137-145) mmol/L Potassium (3.5-5.1) mmol/L Chloride (98-107) mmol/L Carbon Dioxide (22-30) mmol/L Anion Gap mmol/L BUN (7-17) mg/dL Creatinine (0.52-1.04) mg/dL Est GFR (MDRD) Af Amer (>60 ml/min/1.73 sqM) Est GFR (MDRD) Non-Af (>60 ml/min/1.73 sqM) Glucose (74-99) mg/dL Plasma Lactic Acid Cj (0.7-2.0) mmol/L Calcium (8.4-10.2) mg/dL Total Bilirubin (0.2-1.3) mg/dL AST (14-36) U/L ALT (9-52) U/L Alkaline Phosphatase (38-126) U/L Total Protein (6.3-8.2) g/dL Albumin (3.5-5.0) g/dL Influenza Type A RNA Not Detected (Not Detectd) Influenza Type B (PCR) Not Detected (Not Detectd) - Radiology Data Bilateral patchy airspace disease correlate for pneumonia. Follow-up to resolution to exclude other etiologies including neoplasm. (Ligia Mckeon) Disposition <Catalino Wallace - Last Filed: 04/30/17 16:24> Time of Disposition: 15:53 <Ligia Mckeon - Last Filed: 04/30/17 16:26> Clinical Impression: Bilateral pneumonia Disposition: ADMITTED IP TO THIS HOSP Condition: Good Referrals: None,Stated [Primary Care Provider] - 1-2 days
[2017-04-30 14:18] LABS: Basophils % (A) 0 %; CHCM 33.3; Eosinophils # (A) 0.1 k/uL (0-0.7); Eosinophils % (A) 1 %; HCT 43.7 % (34.0-46.0); HDW 2.28; HGB 14.7 gm/dL (11.4-16.0); Luc # (Auto) 0.11; Luc % (Auto) 1; Lymphocytes # (A) 0.9 k/uL (1.0-4.8); Lymphocytes % (A) 5 %; MCH 33.5 pg (25.0-35.0); MCHC 33.7 g/dL (31.0-37.0); MCV 99.6 fL (80.0-100.0); Mean Platelet Volume 7.3; Monocytes # (A) 0.5 k/uL (0-1.0); Monocytes % (A) 3 %; Neutrophils # (A) 15.8 k/uL (1.3-7.7); Neutrophils % (A) 91 %; RBC 4.39 m/uL (3.80-5.40); RDW 12.9 % (11.5-15.5); WBC 17.4 k/uL (3.8-10.6); WBC (Perox) 17.23
[2017-04-30 14:20] LABS: ALT 42 U/L (9-52); AST 30 U/L (14-36); Alkaline Phosphatase 46 U/L (38-126); Anion Gap 8 mmol/L; Blood Urea Nitrogen 8 mg/dL (7-17); Calcium 8.9 mg/dL (8.4-10.2); Carbon Dioxide 22 mmol/L (22-30); Chloride 107 mmol/L (98-107); Glucose 185 mg/dL (74-99); Non-African American GFR(MDRD) >60 (>60 ml/min/1.73 sqM); Potassium 3.4 mmol/L (3.5-5.1); Sodium 137 mmol/L (137-145); Total Bilirubin 0.6 mg/dL (0.2-1.3); Total Protein 5.6 g/dL (6.3-8.2)
[2017-04-30] MEDS ORDERED: LEVOFLOXACIN 750MG-D5W PMX 750 MG in DEXTROSE/WATER 1 150ML.BAG IVPB STA (15:12)
--- NOTE | 2017-04-30 15:34 | XR ---
EXAMINATION TYPE: XR chest 2V DATE OF EXAM: 04/30/2017 COMPARISON: 12/06/2016 TECHNIQUE: PA and lateral views submitted. HISTORY: Shortness of breath and cough FINDINGS: Bilateral patchy areas of airspace disease. No pleural effusion or pneumothorax. Heart size normal. IMPRESSION: 1. Bilateral patchy airspace disease correlate for pneumonia. Follow-up to resolution to exclude othe r etiologies including neoplasm.
[2017-04-30] MEDS ORDERED: NALOXONE 0.4 MG/ML 1 ML VIAL IV PRN ×2 (16:24→17:31)
[2017-04-30] MEDS ORDERED: POTASSIUM CHLORIDE ER 20 MEQ TAB.ER PO STA (16:27)
[2017-04-30] MEDS ORDERED: BENZOCAINE/MENTHOL LOZENG 1 EACH LOZENGE MUCOUS MEM PRN (17:31)
[2017-04-30] MEDS ORDERED: MORPHINE SULFATE 2 MG/ML SYRINGE IV PRN (17:31)
[2017-04-30] MEDS ORDERED: ONDANSETRON 4 MG/2 ML VIAL IVP PRN (17:31)
[2017-04-30] MEDS ORDERED: CALCIUM CARBONATE 500 MG CHEWABLE PO PRN (17:31)
[2017-04-30] MEDS ORDERED: BISACODYL 5 MG TABLET.DR PO PRN (17:31)
[2017-04-30] MEDS ORDERED: MELATONIN 3 MG TABLET PO PRN (17:31)
[2017-04-30] MEDS ORDERED: ALPRAZolam 0.25 MG TAB PO PRN (17:31)
[2017-04-30] MEDS ORDERED: ACETAMINOPHEN TAB 325 MG TAB PO PRN (17:31)
[2017-04-30] MEDS: SODIUM CHLORIDE 0.9% 1,000 ML IV SCH ×3 (17:35→20:25)
[2017-04-30] MEDS ORDERED: ALBUTEROL NEBULIZED 2.5 MG/3 ML INHALATION PRN (17:36)
[2017-04-30] MEDS ORDERED: PNEUMONIA PROTOCOL UTILIZED 1 EACH MISC PO PRN (17:36)
[2017-04-30] MEDS ORDERED: BENZONATATE 100 MG CAP PO PRN (17:38)
--- NOTE | 2017-04-30 17:55 | P.HPIM ---
History of Present Illness H&P Date: 04/30/17 Chief Complaint: shortness of breath Patient is a 32-year-old female with a past medical history of arthritis, COPD, and chronic tobacco abuse who presented with complaints of shortness of breath. She states that the last couple of days she has had increasing shortness of breath that is worse with exertion and better with rest. It is associated with a cough which is productive of scant yellow sputum. She states she feels congested but cannot cough this up. She also complains of wheezing. She felt feverish at home but did not take her temperature. She has felt weak all over. She is having pain with her coughing. She also complains of a runny nose, stuffy nose, sore throat. She did feel lightheaded from coughing and had some nausea after taking medicines today. She has tried DayQuil, NyQuil, and Blanca-[place] at home with minimal relief. She has not been taking any inhalers or breathing treatments. She denies taking these on a chronic basis. She has no sick contacts. She denies any recent travel. She has not done anything unusual or been exposed to any unusual, pulse. In the emergency department she underwent an extensive evaluation. She was found to have pneumonia. She was given IV fluids, Levaquin, Solu-Medrol, and breathing treatments. She was admitted to the general medical floor for further monitoring and care for pneumonia. Review of Systems General: + fever/chills, + generalized weakness, no rigors, no weight loss/ weight gain, no change in appetite Eyes: No double vision, no unusual blurry vision, no loss of vision ENT: + rhinorrhea, + congestion, no trush Cardiovascular: No chest pain, no palpitations, no syncope, no edema, No paroxysmal nocturnal dyspnea, + dizziness Pulmonary: + shortness of breath, + wheezing, + cough, hemoptysis Abdominal: No abdominal pain, no constipation, no diarrhea, no vomiting, + nausea, no distention Genitourinary: No dysuria, no urinary frequency, no hematuria, no unusual discharge/odor Neuro: No unusual paresthesias, no unusual paresis/paralysis, no headache Dermatologic: No unusual rashes, no unusual lesions, no unusual changes in nails Endocrinology: No intolerance to heat/cold, no excessive thirst,] no unusual fatigue Hematologic: No unusual bruising or bleeding, no unusual cervical lymphadenopathy Psychiatric: No changes in mood or behaviors, no changes in sleep pattern Past Medical History Past Medical History: COPD Additional Past Medical History / Comment(s): migraines, scoliosis, chronic back pain, arthritis, chronic bronchitis History of Any Multi-Drug Resistant Organisms: None Reported Additional Past Surgical History / Comment(s): dental surgery Past Psychological History: Anxiety, Bipolar, Depression Smoking Status: Current every day smoker Past Alcohol Use History: Occasional Past Drug Use History: None Reported - Past Family History Mother Additional Family Medical History / Comment(s): Hypertension, stroke, cancer Medications and Allergies Home Medications Medication Instructions Recorded Confirmed Type ARIPiprazole [Abilify] 5 mg PO DAILY 09/09/16 04/30/17 History Cholecalciferol [Vitamin D3] 5,000 unit PO DAILY 10/02/16 04/30/17 History PARoxetine HCL [Paxil] 40 mg PO DAILY #7 tablet 12/06/16 04/30/17 Rx Acetaminophen Tab [Tylenol Tab] 650 mg PO Q4H PRN 04/30/17 04/30/17 History Omeprazole 20 mg PO BID 04/30/17 04/30/17 History Allergies Allergy/AdvReac Type Severity Reaction Status Date / Time Penicillins Allergy Rash/Hives Verified 04/30/17 14:15 Physical Exam Osteopathic Statement: *. No significant issues noted on an osteopathic structural exam other than those noted in the History and Physical/Consult. Vitals: Vital Signs Temp Pulse Resp BP Pulse Ox 04/30/17 16:45 98.8 F 100 18 99/52 94 L 04/30/17 16:00 98.3 F 10 L 16 102/53 94 L 04/30/17 15:51 90 04/30/17 15:46 86 04/30/17 15:00 95 20 98 04/30/17 14:50 98.9 F 86 20 102/51 97 04/30/17 14:03 100 04/30/17 13:49 96 04/30/17 13:31 100.0 F H 95 22 117/71 93 L Intake and Output 04/30/17 04/30/17 04/30/17 06:59 14:59 22:59 Other: Voiding Method Toilet Weight 68.039 kg Patient Weight 05/01/17 06:59 Weight 68.039 kg General: Toxic appearing, mild distress, , appears at stated age, normal weight Derm: no rashes, no lesions, no ulcers, no unusual ecchymoses Head: atraumatic, normocephalic, symmetric Eyes: EOMI, no lid lag, anicteric sclera, pupils equal round reactive to light ENT: no post nasal drip, no thrush , nearest patent, no pharyngeal erythema Neck: No thyromegaly, no cervical lymphadenopathy, trachea midline, supple Mouth: no lip lesion, mucous membranes dry Cardiovascular: S1S2 reg, no murmur, positive posterior tibial pulse bilateral, no edema , no JVD, no clubbing, no cyanosis, capillary refill less than 2 seconds Lungs: Rhonchi right base, diminished breath sounds bilaterally, no accessory muscle use Abdominal: soft, nontender to palpation, no guarding, no appreciable organomegaly, normal bowel sounds Ext: no gross muscle atrophy, muscle strength 5 out of 5 in all 4 extremities grossly, no contractures, Neuro: CN II-XI grossly intact, light touch intact all 4 extremities, finger to nose within normal limits, Psych: Alert, oriented, appropriate affect Results CBC & Chem 7: 04/30/17 14:00 04/30/17 14:00 Labs: Abnormal Lab Results - Last 24 Hours (Table) 04/30/17 04/30/17 Range/Units 14:00 14:00 WBC 17.4 H (3.8-10.6) k/uL Neutrophils # 15.8 H (1.3-7.7) k/uL Lymphocytes # 0.9 L (1.0-4.8) k/uL Potassium 3.4 L (3.5-5.1) mmol/L Glucose 185 H (74-99) mg/dL Total Protein 5.6 L (6.3-8.2) g/dL Albumin 3.2 L (3.5-5.0) g/dL Chest x-ray: report reviewed, image reviewed Thrombosis Risk Factor Assmnt - DVT/VTE Prophylaxis DVT/VTE Prophylaxis: Pharmacologic Prophylaxis ordered - Choose All That Apply Any of the Below Risk Factors Present?: Yes Each Factor Represents 1 point: Obesity (BMI >25) Other Risk Factors: No Thrombosis Risk Factor Assessment Total Risk Factor Score: 1 Thrombosis Risk Factor Assessment Level: Low Risk Assessment and Plan Plan: #Community-acquired pneumonia with sepsis -IV fluids -Check lactic acid -Levaquin -Follow chest x-rays until clear -Bronchodilators, Solu-Medrol, pulmonary hygiene -Supplemental oxygen, wean as able #COPD with exacerbation -Solu-Medrol, bronchodilators, pulmonary hygiene, tobacco cessation -Wean oxygen as able #Hypokalemia -Replaced in the ER -Recheck in a.m. #Tobacco abuse -Cessation recommended -Did not want nicotine patch #Elevated blood glucose -Insulin sliding scale - HgB A1C Surrogate decision-maker: Mother, Cassia Solorzano CODE STATUS: Full DVT prophylaxis: Lovenox Discussed with: pt, RN Anticipated discharge: Home Anticipated discharge place: 48-72 hours A total of 60 minutes was spent on the care of this complex patient more than 50 % of the time was spent in counseling and care coordination.
[2017-04-30] MEDS: methylPREDNISolone SOD SUCCI 125 MG/2 ML VIAL IV SCH ×2 (18:11→23:41)
[2017-04-30] MEDS: IPRATROPIUM-ALBUTEROL 3 ML NEB INHALATION SCH (19:30)
[2017-04-30 20:21] LABS: Hemoglobin A1C 5.1 % (4.2-6.1)
[2017-04-30 20:24] LABS: Glucose,Whole Blood 216 mg/dL (75-99)
[2017-04-30] MEDS ORDERED: INSULIN LISPRO (humaLOG) 300 UNIT/3 ML VIAL SQ SCH (21:00)
[2017-04-30] MEDS ORDERED: Magnesium Replacement Protocol 1 EACH MISC MISCELLANE PRN (21:12)
[2017-04-30] MEDS ORDERED: Potassium Replacement Protocol 1 EACH MISC MISCELLANE PRN (21:12)
[2017-04-30] MEDS ORDERED: VANCOMYCIN IV PER PHARMACY 1 EACH MISC MISCELLANE PRN (21:12)
[2017-04-30] MEDS ORDERED: Phosphorus Replacement Protoco 1 EACH MISC MISCELLANE PRN (21:12)
[2017-04-30] MEDS ORDERED: VANCOMYCIN 1,500 MG in SODIUM CHLORIDE 0.9% 250 ML IVPB ONE (22:00)
[2017-04-30] MEDS: HYDROcodone/APAP 5-325MG 1 EACH TAB PO PRN (22:03)
[2017-04-30] MEDS: guaiFENesin 600 MG TABLET.ER PO SCH (22:05)
[2017-04-30] MEDS: INSULIN LISPRO (humaLOG) 300 UNIT/3 ML VIAL SQ SCH (22:08)
[2017-04-30 22:56] LABS: Basophils % (A) 0 %; CH 32.5; CHCM 32.4; Eosinophils % (A) 0 %; HCT 39.3 % (34.0-46.0); HGB 13.2 gm/dL (11.4-16.0); Luc # (Auto) 0.03; Luc % (Auto) 0; Lymphocytes # (A) 0.4 k/uL (1.0-4.8); Lymphocytes % (A) 3 %; MCH 33.8 pg (25.0-35.0); MCHC 33.5 g/dL (31.0-37.0); MCV 100.9 fL (80.0-100.0); Mean Platelet Volume 7.3; Monocytes # (A) 0.1 k/uL (0-1.0); Monocytes % (A) 1 %; Neutrophils # (A) 12.1 k/uL (1.3-7.7); Neutrophils % (A) 95 %; RBC 3.89 m/uL (3.80-5.40); RDW 12.9 % (11.5-15.5); WBC 12.7 k/uL (3.8-10.6); WBC (Perox) 13.25
[2017-04-30 23:05] LABS: Anion Gap 10 mmol/L; Blood Urea Nitrogen 5 mg/dL (7-17); Calcium 7.9 mg/dL (8.4-10.2); Carbon Dioxide 18 mmol/L (22-30); Chloride 112 mmol/L (98-107); Glucose 192 mg/dL (74-99); Magnesium 1.3 mg/dL (1.6-2.3); Non-African American GFR(MDRD) >60 (>60 ml/min/1.73 sqM); Potassium 3.3 mmol/L (3.5-5.1); Sodium 140 mmol/L (137-145)
[2017-04-30] MEDS: POTASSIUM CHLORIDE ORAL LIQUID 40 MEQ/30 ML CUP NG-TUBE SCH (23:39)
[2017-04-30] MEDS: MAGNESIUM SULFATE-D5W PMX 1 GM in DEXTROSE/WATER 1 100ML.BAG IVPB SCH (23:40)
[2017-04-30 23:50] LABS: Hemoglobin A1C 5.2 % (4.2-6.1)
[2017-05-01 00:14] LABS: Appearance,Urine Clear (Clear); Bilirubin,Urine Negative (Negative); Glucose,Urine (UA) 4+ (Negative); Ketones,Urine Negative (Negative); Leukocyte Esterase,Urine Negative (Negative); Nitrite,Urine Negative (Negative); PH, Urine 6.5 (5.0-8.0); Protein,Urine Negative (Negative); Specific Gravity,Urine 1.014 (1.001-1.035); UA Billing (MACRO vs. MICRO) CHEM; Urobilinogen,Urine <2.0 mg/dL (<2.0)
[2017-05-01] MEDS: POTASSIUM CHLORIDE ORAL LIQUID 40 MEQ/30 ML CUP NG-TUBE SCH (00:42)
[2017-05-01] MEDS: MAGNESIUM SULFATE-D5W PMX 1 GM in DEXTROSE/WATER 1 100ML.BAG IVPB SCH ×2 (00:43→02:27)
[2017-05-01] MEDS: SODIUM CHLORIDE 0.9% 1,000 ML IV SCH (00:45)
[2017-05-01] MEDS: SODIUM PHOSPHATE 10 MMOL in SODIUM CHLORIDE 0.9% 250 ML IVPB SCH ×3 (02:17)
[2017-05-01] MEDS: VANCOMYCIN 1,250 MG in SODIUM CHLORIDE 0.9% 250 ML IVPB SCH ×3 (06:06→21:06)
[2017-05-01] MEDS: HYDROcodone/APAP 5-325MG 1 EACH TAB PO PRN ×2 (06:39→13:42)
[2017-05-01 06:53] LABS: Basophils % (A) 0 %; CH 33.2; Eosinophils # (A) 0.2 k/uL (0-0.7); Eosinophils % (A) 1 %; HGB 12.7 gm/dL (11.4-16.0); Luc # (Auto) 0.03; Luc % (Auto) 0; Lymphocytes # (A) 0.7 k/uL (1.0-4.8); Lymphocytes % (A) 5 %; MCHC 32.5 g/dL (31.0-37.0); MCV 101.5 fL (80.0-100.0); Macrocytosis Slight; Mean Platelet Volume 7.8; Monocytes # (A) 0.2 k/uL (0-1.0); Monocytes % (A) 1 %; Neutrophils # (A) 13.3 k/uL (1.3-7.7); Neutrophils % (A) 92 %; RBC 3.85 m/uL (3.80-5.40); RDW 13.7 % (11.5-15.5); WBC 14.4 k/uL (3.8-10.6); WBC (Perox) 15.84
[2017-05-01 07:06] LABS: Anion Gap 7 mmol/L; Blood Urea Nitrogen 4 mg/dL (7-17); Calcium 7.8 mg/dL (8.4-10.2); Carbon Dioxide 16 mmol/L (22-30); Chloride 114 mmol/L (98-107); Glucose 198 mg/dL (74-99); Magnesium 2.1 mg/dL (1.6-2.3); Non-African American GFR(MDRD) >60 (>60 ml/min/1.73 sqM); Phosphorus 3.5 mg/dL (2.5-4.5); Potassium 4.3 mmol/L (3.5-5.1); Sodium 137 mmol/L (137-145)
[2017-05-01] MEDS: IPRATROPIUM-ALBUTEROL 3 ML NEB INHALATION SCH ×4 (07:10→20:12)
[2017-05-01 07:24] LABS: Glucose,Whole Blood 179 mg/dL (75-99)
[2017-05-01] MEDS: methylPREDNISolone SOD SUCCI 125 MG/2 ML VIAL IV SCH ×3 (08:07→23:42)
[2017-05-01] MEDS: INSULIN LISPRO (humaLOG) 300 UNIT/3 ML VIAL SQ SCH ×4 (08:08→20:09)
[2017-05-01] MEDS: PARoxetine 20 MG TAB PO SCH (08:12)
[2017-05-01] MEDS: ARIPiprazole 5 MG TAB PO SCH (08:12)
[2017-05-01] MEDS: ENOXAPARIN 40 MG/0.4 ML SYRINGE SQ SCH (08:12)
[2017-05-01] MEDS: guaiFENesin 600 MG TABLET.ER PO SCH ×2 (08:14→20:08)
--- NOTE | 2017-05-01 08:38 | XR ---
EXAMINATION TYPE: XR chest 1V portable DATE OF EXAM: 05/01/2017 COMPARISON: 04/30/2017 HISTORY: Shortness of breath TECHNIQUE: Single frontal view of the chest is obtained. FINDINGS: Bilateral airspace disease is stable. Tiny pleural effusions now noted. No pneumothorax. H eart size within normal limits. IMPRESSION: 1. Bilateral airspace disease is stable correlate for pneumonia.
--- NOTE | 2017-05-01 08:48 | P.PN ---
Subjective Principal diagnosis: Shortness of breath Patient is a 32-year-old female with a past medical history of arthritis, COPD, and chronic tobacco abuse who presented with complaints of shortness of breath. In the emergency department she underwent an extensive evaluation. She was found to have pneumonia. She was given IV fluids, Levaquin , Solu-Medrol, and breathing treatments. She was admitted to the general medical floor for further monitoring and care of pneumonia. She was noted to have sepsis and a lactic acid was drawn. This resulted at 5.8. Her IV fluids were increased and she was transferred to the ICU. Patient seen and examined at bedside. She states her breathing is improved. Her wheezing is much better. She continues to have some chest pain with coughing. She denies any nausea, vomiting, or diarrhea. Case discussed with RN. Objective - Vital Signs Vital signs: Vital Signs Temp 97.9 F 05/01/17 08:00 Pulse 49 L 05/01/17 08:00 Resp 21 05/01/17 08:00 BP 102/71 05/01/17 08:00 Pulse Ox 96 05/01/17 08:00 Intake & Output 04/30/17 05/01/17 05/01/17 18:59 06:59 18:59 Intake Total 2600 575 Output Total 400 Balance 2200 575 Weight 68.039 kg 68.9 kg Intake: IV 1000 325 Sodium Chloride 0.9% 1, 1000 200 000 ml @ 100 mls/hr IV . Q10H [facility] Rx#:[id number] Vancomycin 1,250 mg In 125 Sodium Chloride 0.9% 250 ml @ 125 mls/hr IVPB Q8H [facility] Rx#:[id number] Intake, IV Titration 1600 250 Amount Magnesium Sulfate-D5w Pmx 100 1 gm In Dextrose/Water 1 100ml.bag @ 100 mls/hr IVPB Q1H [facility] Rx#: [id number] Sodium Chloride 0.9% 1, 1000 000 ml @ 999 mls/hr IV . Q1H1M [facility] Rx#:[id number] Sodium Phosphate 10 mmol 500 In Sodium Chloride 0.9% 250 ml @ 125 mls/hr IVPB Q2H [facility] Rx#:[id number] Vancomycin 1,250 mg In 250 Sodium Chloride 0.9% 250 ml @ 125 mls/hr IVPB Q8H [facility] Rx#:[id number] Output: Urine 400 Other: Voiding Method Toilet Toilet # Voids 1 0 - Exam General: Ill appearing, no distress, appears at stated age Derm: no rashes, no lesions Head: atraumatic, normocephalic, symmetric Eyes: EOMI, no lid lag, anicteric sclera ENT: no post nasal drip, no thrush Mouth: no lip lesion, mucus membranes moist Cardiovascular: S1S2 reg, no murmur, positive posterior tibial pulse bilateral, Lungs: Rhonchi bilateral bases , no accessory muscle use Abdominal: soft, nontender to palpation, no guarding, no appreciable organomegaly Ext: no gross muscle atrophy, no edema, no contractures Neuro: CN II-XI grossly intact, no focal neuro deficits Psych: Alert, oriented, appropriate affect - Labs CBC & Chem 7: 05/01/17 06:37 05/01/17 06:37 Labs: Abnormal Lab Results - Last 24 Hours (Table) 04/30/17 04/30/17 04/30/17 Range/Units 14:00 14:00 18:13 WBC 17.4 H (3.8-10.6) k/uL MCV (80.0-100.0) fL Neutrophils # 15.8 H (1.3-7.7) k/uL Lymphocytes # 0.9 L (1.0-4.8) k/uL Potassium 3.4 L (3.5-5.1) mmol/L Chloride (98-107) mmol/L Carbon Dioxide (22-30) mmol/L BUN (7-17) mg/dL Glucose 185 H (74-99) mg/dL POC Glucose (mg/dL) (75-99) mg/dL Plasma Lactic Acid Cj 5.8 H* (0.7-2.0) mmol/L Calcium (8.4-10.2) mg/dL Phosphorus (2.5-4.5) mg/dL Magnesium (1.6-2.3) mg/dL Total Protein 5.6 L (6.3-8.2) g/dL Albumin 3.2 L (3.5-5.0) g/dL Urine Glucose (UA) (Negative) 04/30/17 04/30/17 04/30/17 Range/Units 20:21 22:34 22:34 WBC 12.7 H (3.8-10.6) k/uL MCV 100.9 H (80.0-100.0) fL Neutrophils # 12.1 H (1.3-7.7) k/uL Lymphocytes # 0.4 L (1.0-4.8) k/uL Potassium 3.3 L (3.5-5.1) mmol/L Chloride 112 H (98-107) mmol/L Carbon Dioxide 18 L (22-30) mmol/L BUN 5 L (7-17) mg/dL Glucose 192 H (74-99) mg/dL POC Glucose (mg/dL) 216 H (75-99) mg/dL Plasma Lactic Acid Cj (0.7-2.0) mmol/L Calcium 7.9 L (8.4-10.2) mg/dL Phosphorus 2.0 L (2.5-4.5) mg/dL Magnesium 1.3 L (1.6-2.3) mg/dL Total Protein (6.3-8.2) g/dL Albumin (3.5-5.0) g/dL Urine Glucose (UA) (Negative) 04/30/17 04/30/17 05/01/17 Range/Units 22:34 23:45 06:37 WBC 14.4 H (3.8-10.6) k/uL MCV 101.5 H (80.0-100.0) fL Neutrophils # 13.3 H (1.3-7.7) k/uL Lymphocytes # 0.7 L (1.0-4.8) k/uL Potassium (3.5-5.1) mmol/L Chloride (98-107) mmol/L Carbon Dioxide (22-30) mmol/L BUN (7-17) mg/dL Glucose (74-99) mg/dL POC Glucose (mg/dL) (75-99) mg/dL Plasma Lactic Acid Cj 3.6 H* (0.7-2.0) mmol/L Calcium (8.4-10.2) mg/dL Phosphorus (2.5-4.5) mg/dL Magnesium (1.6-2.3) mg/dL Total Protein (6.3-8.2) g/dL Albumin (3.5-5.0) g/dL Urine Glucose (UA) 4+ H (Negative) 05/01/17 05/01/17 Range/Units 06:37 07:23 WBC (3.8-10.6) k/uL MCV (80.0-100.0) fL Neutrophils # (1.3-7.7) k/uL Lymphocytes # (1.0-4.8) k/uL Potassium (3.5-5.1) mmol/L Chloride 114 H (98-107) mmol/L Carbon Dioxide 16 L (22-30) mmol/L BUN 4 L (7-17) mg/dL Glucose 198 H (74-99) mg/dL POC Glucose (mg/dL) 179 H (75-99) mg/dL Plasma Lactic Acid Cj (0.7-2.0) mmol/L Calcium 7.8 L (8.4-10.2) mg/dL Phosphorus (2.5-4.5) mg/dL Magnesium (1.6-2.3) mg/dL Total Protein (6.3-8.2) g/dL Albumin (3.5-5.0) g/dL Urine Glucose (UA) (Negative) Assessment and Plan Plan: #Community-acquired pneumonia with sepsis -IV fluids -Levaquin -Follow chest x-rays until clear -Bronchodilators, Solu-Medrol, pulmonary hygiene -Supplemental oxygen, wean as able #COPD with exacerbation -Solu-Medrol, bronchodilators, pulmonary hygiene, tobacco cessation -Wean oxygen as able #Tobacco abuse -Cessation recommended -Did not want nicotine patch #hyperglycemia -Insulin sliding scale - HgB A1C 5.1 Resolved: Lactic acidosis Hypokalemia Hypomagnesemia Hypophosphatemia DVT prophylaxis: Lovenox Discussed with: pt, RN Anticipated discharge: Home Anticipated discharge place: 48 hours A total of 35 minutes was spent on the care of this complex patient more than 50 % of the time was spent in counseling and care coordination.
[2017-05-01] MEDS ORDERED: PANTOPRAZOLE 40 MG/10 ML VIAL IV SCH (09:00)
[2017-05-01] MEDS: CHOLECALCIFEROL 1,000 UNIT TAB PO SCH (09:30)
[2017-05-01 12:09] LABS: Glucose,Whole Blood 191 mg/dL (75-99)
--- NOTE | 2017-05-01 13:06 | P.CNPUL ---
History of Present Illness Consult date: 05/01/17 Requesting physician: Halle Adam Reason for consult: pneumonia, other (Sepsis) Chief complaint: Shortness of breath History of present illness: This is a 32-year-old female with history of multiple medical problems including severe COPD, chronic tobacco abuse, bipolar disorder, depression, anxiety, patient presented to the ER with a few days' history of increased shortness of breath worse on exertion,. Patient was also complaining of productive cough with yellow sputum. Wheezing, and vague chest discomfort. Patient was also complaining of generalized weakness and fatigue, painful chest upon coughing. She also complained of stuffy nose and sore throat. Took over- the-counter medications including NyQuil and Blanca-[place], but minimal relief was noted. Patient has not been compliant with her inhalers for COPD, has been smoking heavily at least 1 pack per day for the last 15 years. Denies any recent travel or any recent specific occupational exposure. Chest x-ray in the ER showed bilateral pneumonia, patient was initially admitted to the regular medical floor, however her lactic acid was noted to be elevated, and was even on the rise in spite of fluid boluses. Patient was transferred to the ICU last night, given more fluid boluses, I was notified about this patient, and I recommended antibiotics in the form of Levaquin and vancomycin. Patient is ALLERGIC to penicillin. Upon my evaluation today, patient is feeling a bit better, her lactic acid is significantly improved, she remains hemodynamically stable, she continues to cough and wheeze, but definite improvement over the last 24 hours was noted. Patient is now receiving IV fluids, antibiotics in the form of Levaquin and Zosyn, bronchodilators and steroids in the form of Solu -Medrol. Will likely arrange for the patient to be transferred out of the ICU today once a bed is available. Review of Systems General: + fever/chills, + generalized weakness, no weight loss. Eyes: No blurred vision, no loss of vision. ENT: Positive nasal congestion and sore throat. Cardiovascular: No chest pain, no palpitations. Pulmonary: + As noted in HPI. Abdominal: No abdominal pain, no nausea, no vomiting, no melena, no hematemesis. Genitourinary: No dysuria, frequency urgency, no hematuria. Neuro: No headaches, no blurred vision, no dizziness, no paresthesia Dermatologic: No rashes, no ulcerations. No petechiae, no ecchymosis. Endocrinology: No heat or cold intolerance. Hematologic: No clotting or bleeding or bruising. Psychiatric: History of depression, denies any active suicidal or homicidal thoughts. Past Medical History Past Medical History: COPD Additional Past Medical History / Comment(s): migraines, scoliosis, chronic back pain, arthritis, chronic bronchitis History of Any Multi-Drug Resistant Organisms: None Reported Past Surgical History: No Surgical Hx Reported Additional Past Surgical History / Comment(s): dental surgery Past Anesthesia/Blood Transfusion Reactions: No Reported Reaction Smoking Status: Current every day smoker - Past Family History Mother Additional Family Medical History / Comment(s): Hypertension, stroke, cancer Father Family Medical History: No Reported History Medications and Allergies Home Medications Medication Instructions Recorded Confirmed Type ARIPiprazole [Abilify] 5 mg PO DAILY 09/09/16 04/30/17 History Cholecalciferol [Vitamin D3] 5,000 unit PO DAILY 10/02/16 04/30/17 History PARoxetine HCL [Paxil] 40 mg PO DAILY #7 tablet 12/06/16 04/30/17 Rx Acetaminophen Tab [Tylenol Tab] 650 mg PO Q4H PRN 04/30/17 04/30/17 History Omeprazole 20 mg PO BID 04/30/17 04/30/17 History Allergies Allergy/AdvReac Type Severity Reaction Status Date / Time Penicillins Allergy Rash/Hives Verified 04/30/17 14:15 Physical Exam Vitals: Vital Signs Temp Pulse Pulse Resp BP BP Pulse Ox 05/01/17 12:00 98 F 60 22 95/59 94 L 05/01/17 11:41 68 05/01/17 11:29 72 05/01/17 11:00 50 L 22 105/62 99 05/01/17 10:00 57 L 20 95/55 98 05/01/17 09:00 64 20 96/67 96 05/01/17 08:00 97.9 F 49 L 21 102/71 96 05/01/17 07:39 79 05/01/17 07:30 69 18 102/71 93 L 05/01/17 07:12 70 05/01/17 07:00 62 25 H 100/65 95 05/01/17 06:00 56 L 22 94/63 97 05/01/17 05:00 65 32 H 94/65 90 L 05/01/17 04:00 97.6 F 60 20 103/52 95 05/01/17 03:30 56 L 21 103/52 96 05/01/17 03:00 58 L 17 100/56 99 05/01/17 02:30 73 27 H 100/56 96 05/01/17 02:20 59 L 24 100/56 95 05/01/17 02:10 67 19 98/59 96 05/01/17 02:00 64 24 98/59 95 05/01/17 01:50 62 23 98/59 94 L 05/01/17 01:40 64 24 98/59 94 L 05/01/17 01:30 68 24 98/59 90 L 05/01/17 01:20 63 22 86/52 93 L 05/01/17 01:10 64 21 98/62 93 L 05/01/17 01:00 67 24 98/62 93 L 05/01/17 00:20 74 31 H 98/62 92 L 05/01/17 00:10 62 26 H 93/49 95 05/01/17 00:00 97.7 F 72 16 93/49 95 04/30/17 23:30 70 24 93/49 94 L 04/30/17 23:20 68 25 H 90/47 93 L 04/30/17 23:00 72 27 H 119/71 94 L 04/30/17 22:40 84 19 119/71 93 L 04/30/17 22:30 84 32 H 119/71 92 L 04/30/17 22:20 89 36 H 119/71 93 L 04/30/17 22:10 89 28 H 91/46 94 L 04/30/17 22:00 89 26 H 91/46 96 04/30/17 21:50 93 31 H 91/46 94 L 04/30/17 21:40 76 34 H 91/46 95 04/30/17 21:30 92 31 H 91/46 94 L 04/30/17 21:20 85 26 H 91/46 93 L 04/30/17 21:10 88 32 H 111/64 94 L 04/30/17 21:00 89 31 H 111/64 94 L 04/30/17 20:50 98.0 F 89 23 111/64 94 L 04/30/17 20:40 89 29 H 111/64 93 L 04/30/17 20:30 96 20 111/64 93 L 04/30/17 20:20 94 34 H 111/64 93 L 04/30/17 20:13 94 34 H 111/64 04/30/17 17:50 97.1 F L 97 20 107/60 96 04/30/17 16:45 98.8 F 100 18 99/52 94 L 04/30/17 16:00 98.3 F 10 L 16 102/53 94 L 04/30/17 15:51 90 04/30/17 15:46 86 04/30/17 15:00 95 20 98 04/30/17 14:50 98.9 F 86 20 102/51 97 04/30/17 14:03 100 04/30/17 13:49 96 04/30/17 13:31 100.0 F H 95 22 117/71 93 L Intake and Output 04/30/17 05/01/17 05/01/17 22:59 06:59 14:59 Intake Total 1200 1400 850 Output Total 400 Balance 1200 1000 850 Intake: IV 200 800 600 Sodium Chloride 0.9% 1, 200 800 600 000 ml @ 100 mls/hr IV . Q10H [facility] Rx#:[id number] Intake, IV Titration 1000 600 250 Amount Magnesium Sulfate-D5w Pmx 100 1 gm In Dextrose/Water 1 100ml.bag @ 100 mls/hr IVPB Q1H [facility] Rx#: [id number] Sodium Chloride 0.9% 1, 1000 000 ml @ 999 mls/hr IV . Q1H1M [facility] Rx#:[id number] Sodium Phosphate 10 mmol 500 In Sodium Chloride 0.9% 250 ml @ 125 mls/hr IVPB Q2H [facility] Rx#:[id number] Vancomycin 1,250 mg In 250 Sodium Chloride 0.9% 250 ml @ 125 mls/hr IVPB Q8H [facility] Rx#:[id number] Output: Urine 400 Other: Voiding Method Toilet Toilet Toilet # Voids 1 1 1 Weight 68.9 kg General: 32-year-old female in no distress at this point. Patient was examined in the ICU. Eyes: EOMI no icterus, pupils are equal and reactive to light and accommodation. ENT: Throat is clear, no fungal rash noted, no thrush. Neck: No thyromegaly, no cervical lymphadenopathy, trachea midline, suppl Cardiovascular: S1S2 reg, no murmur, no gallop. Lungs: Diffuse rhonchi bilaterally, no use of accessory muscles. Abdominal: soft, nontender to palpation, no guarding, no appreciable organomegaly, normal bowel sounds Ext: No clubbing, no edema, no cyanosis., Neuro: No gross focal neurologic deficit. Psych: Mental status exam is appropriate, and affect is slightly blunted. Skin: No rashes, no ulcerations noted. Results - Laboratory Findings CBC and BMP: 05/01/17 06:37 05/01/17 06:37 Abnormal lab findings: Abnormal Labs 04/30/17 04/30/17 04/30/17 14:00 14:00 18:13 WBC 17.4 H MCV Neutrophils # 15.8 H Lymphocytes # 0.9 L Potassium 3.4 L Chloride Carbon Dioxide BUN Glucose 185 H POC Glucose (mg/dL) Plasma Lactic Acid Cj 5.8 H* Calcium Phosphorus Magnesium Total Protein 5.6 L Albumin 3.2 L Urine Glucose (UA) 04/30/17 04/30/17 04/30/17 20:21 22:34 22:34 WBC 12.7 H MCV 100.9 H Neutrophils # 12.1 H Lymphocytes # 0.4 L Potassium 3.3 L Chloride 112 H Carbon Dioxide 18 L BUN 5 L Glucose 192 H POC Glucose (mg/dL) 216 H Plasma Lactic Acid Cj Calcium 7.9 L Phosphorus 2.0 L Magnesium 1.3 L Total Protein Albumin Urine Glucose (UA) 04/30/17 04/30/17 05/01/17 22:34 23:45 06:37 WBC 14.4 H MCV 101.5 H Neutrophils # 13.3 H Lymphocytes # 0.7 L Potassium Chloride Carbon Dioxide BUN Glucose POC Glucose (mg/dL) Plasma Lactic Acid Cj 3.6 H* Calcium Phosphorus Magnesium Total Protein Albumin Urine Glucose (UA) 4+ H 05/01/17 05/01/17 05/01/17 06:37 07:23 12:07 WBC MCV Neutrophils # Lymphocytes # Potassium Chloride 114 H Carbon Dioxide 16 L BUN 4 L Glucose 198 H POC Glucose (mg/dL) 179 H 191 H Plasma Lactic Acid Cj Calcium 7.8 L Phosphorus Magnesium Total Protein Albumin Urine Glucose (UA) - Diagnostic Findings Chest x-ray: image reviewed (Bilateral nodular infiltrates noted,, consistent with bilateral pneumonia.) Assessment and Plan Plan: Impression: 1 acute bilateral pneumonia, community-acquired, possibility of aspiration is not entirely ruled out, but felt to be less likely considering her history. Patient does not recall any episodes of syncope or loss of consciousness or vomiting and aspiration. Patient is now on antibiotics in the form of Levaquin and vancomycin., Antibiotics will be addressed according to the final sputum and blood cultures. 2 acute sepsis secondary to pneumonia. Patient is on the protocol for sepsis. Patient is also on GI and DVT prophylaxis. 3 acute exacerbation of COPD, patient is presently on bronchodilators and on IV Solu-Medrol. Patient is on DuoNeb, and Symbicort 4 tobacco dependence syndrome, patient was counseled regarding smoking cessation. 5 elevated blood sugar on presentation, will likely worsen with IV Solu-Medrol. However the patient will be placed on insulin sliding scale as per protocol. 6 history of bipolar disorder and depression. Recommendation: Continue present treatment plan as detailed above, patient will be transferred to the regular medical floor likely today once a bed is available. We'll continue to follow closely. Antibiotic will be changed accordingly. Time with Patient: Greater than 30
[2017-05-01 17:51] LABS: Glucose,Whole Blood 133 mg/dL (75-99)
[2017-05-01] MEDS: PANTOPRAZOLE 40 MG TABLET PO SCH (18:23)
[2017-05-01 20:10] LABS: Glucose,Whole Blood 180 mg/dL (75-99)
[2017-05-01] MEDS: SYMBICORT 160-4.5 MCG INHALER INHALATION SCH (20:12)
[2017-05-02 04:58] LABS: Basophils % (A) 0 %; CH 32.4; CHCM 32.1; Eosinophils % (A) 0 %; HCT 38.7 % (34.0-46.0); HDW 2.35; HGB 12.5 gm/dL (11.4-16.0); Luc # (Auto) 0.09; Luc % (Auto) 1; Lymphocytes % (A) 5 %; MCH 32.9 pg (25.0-35.0); MCHC 32.4 g/dL (31.0-37.0); MCV 101.4 fL (80.0-100.0); Macrocytosis Slight; Mean Platelet Volume 7.4; Monocytes # (A) 0.5 k/uL (0-1.0); Monocytes % (A) 3 %; Neutrophils # (A) 16.8 k/uL (1.3-7.7); Neutrophils % (A) 91 %; RBC 3.82 m/uL (3.80-5.40); RDW 13.1 % (11.5-15.5); WBC 18.5 k/uL (3.8-10.6); WBC (Perox) 18.95
[2017-05-02] MEDS ORDERED: VANCOMYCIN TROUGH DUE 1 EACH MISC MISCELLANE ONE (05:00)
[2017-05-02 05:09] LABS: Anion Gap 6 mmol/L; Blood Urea Nitrogen 11 mg/dL (7-17); Calcium 8.7 mg/dL (8.4-10.2); Carbon Dioxide 20 mmol/L (22-30); Chloride 111 mmol/L (98-107); Glucose 180 mg/dL (74-99); Magnesium 1.8 mg/dL (1.6-2.3); Non-African American GFR(MDRD) >60 (>60 ml/min/1.73 sqM); Phosphorus 3.1 mg/dL (2.5-4.5); Potassium 4.3 mmol/L (3.5-5.1); Sodium 137 mmol/L (137-145)
[2017-05-02] MEDS: VANCOMYCIN 1,250 MG in SODIUM CHLORIDE 0.9% 250 ML IVPB SCH ×3 (05:49→22:09)
[2017-05-02] MEDS: IPRATROPIUM-ALBUTEROL 3 ML NEB INHALATION SCH ×4 (07:24→19:20)
[2017-05-02] MEDS: SYMBICORT 160-4.5 MCG INHALER INHALATION SCH ×2 (07:24→19:20)
[2017-05-02 07:49] LABS: Glucose,Whole Blood 145 mg/dL (75-99)
[2017-05-02] MEDS: MAGNESIUM SULFATE-D5W PMX 1 GM in DEXTROSE/WATER 1 100ML.BAG IVPB SCH ×2 (07:56→11:49)
[2017-05-02] MEDS: HYDROcodone/APAP 5-325MG 1 EACH TAB PO PRN ×3 (07:57→20:21)
[2017-05-02] MEDS: INSULIN LISPRO (humaLOG) 300 UNIT/3 ML VIAL SQ SCH ×4 (08:07→20:21)
[2017-05-02] MEDS: PANTOPRAZOLE 40 MG TABLET PO SCH ×2 (08:08→17:41)
[2017-05-02] MEDS: methylPREDNISolone SOD SUCCI 125 MG/2 ML VIAL IV SCH (08:08)
[2017-05-02] MEDS: CHOLECALCIFEROL 1,000 UNIT TAB PO SCH (08:09)
[2017-05-02] MEDS: PARoxetine 20 MG TAB PO SCH (08:09)
[2017-05-02] MEDS: ENOXAPARIN 40 MG/0.4 ML SYRINGE SQ SCH (08:09)
[2017-05-02] MEDS: guaiFENesin 600 MG TABLET.ER PO SCH ×2 (08:09→20:22)
[2017-05-02] MEDS: ARIPiprazole 5 MG TAB PO SCH (08:10)
--- NOTE | 2017-05-02 08:44 | XR ---
EXAMINATION TYPE: XR chest 1V portable DATE OF EXAM: 05/02/2017 COMPARISON: 05/01/2017 HISTORY: Pneumonia TECHNIQUE: Single frontal view of the chest is obtained. FINDINGS: Patchy bilateral areas of infiltrate again noted appears stable given differences in techn ique. Could not exclude a tiny bilateral effusions. No pneumothorax. Heart size stable. IMPRESSION: 1. Stable patchy bilateral infiltrates
--- NOTE | 2017-05-02 10:54 | P.PN ---
Subjective Principal diagnosis: Shortness of breath Patient is a 32-year-old female with a past medical history of arthritis, COPD, and chronic tobacco abuse who presented with complaints of shortness of breath. In the emergency department she underwent an extensive evaluation. She was found to have pneumonia. She was given IV fluids, Levaquin , Solu-Medrol, and breathing treatments. She was admitted to the general medical floor for further monitoring and care of pneumonia. She was noted to have sepsis and a lactic acid was drawn. This resulted at 5.8. Her IV fluids were increased and she was transferred to the ICU. Her lactic acidosis quickly resolved. Her breathing greatly improved through use of steroids, bronchodilators, and antibiotics. Transfer orders were written for the general medical floor. On 05/01 one of 2 blood cultures came back positive for gram- positive cocci. A second set of blood cultures were drawn. Ultimately her initial blood culture showed coag-negative staph. Patient seen and examined at bedside. Breathing greatly improved, wheezing resolved, no nausea/vomiting/diarrhea. Her chest pain is less with coughing.. Case discussed with RN. Objective - Vital Signs Vital signs: Vital Signs Temp 97.7 F 05/02/17 08:00 Pulse 89 05/02/17 09:00 Resp 29 H 05/02/17 09:00 BP 126/80 05/02/17 09:00 Pulse Ox 94 L 05/02/17 09:00 Intake & Output 05/01/17 05/02/17 05/02/17 18:59 06:59 18:59 Intake Total 1340 720 220 Balance 1340 720 220 Weight 69.5 kg Intake: IV 1090 720 220 0.9 at KVO 40 220 20 Sodium Chloride 0.9% 1, 800 000 ml @ 100 mls/hr IV . Q10H [facility] Rx#:[id number] Vancomycin 1,250 mg In 250 500 Sodium Chloride 0.9% 250 ml @ 125 mls/hr IVPB Q8H [facility] Rx#:[id number] magnesium 200 Intake, IV Titration 250 Amount Vancomycin 1,250 mg In 250 Sodium Chloride 0.9% 250 ml @ 125 mls/hr IVPB Q8H [facility] Rx#:[id number] Other: Voiding Method Toilet Toilet # Voids 1 2 2 # Bowel Movements 1 - Exam General: Nontoxic, no distress, appears at stated age Derm: no rashes, no lesions Head: atraumatic, normocephalic, symmetric Eyes: EOMI, no lid lag, anicteric sclera ENT: no post nasal drip, no thrush Mouth: no lip lesion, mucus membranes moist Cardiovascular: S1S2 reg, no murmur, positive posterior tibial pulse bilateral, Lungs: Rhonchi right base , no accessory muscle use Abdominal: soft, nontender to palpation, no guarding, no appreciable organomegaly Ext: no gross muscle atrophy, no edema, no contractures Neuro: CN II-XI grossly intact, no focal neuro deficits Psych: Alert, oriented, appropriate affect - Labs CBC & Chem 7: 05/02/17 04:41 05/02/17 04:41 Labs: Abnormal Lab Results - Last 24 Hours (Table) 05/01/17 05/01/17 05/01/17 Range/Units 12:07 17:49 20:08 WBC (3.8-10.6) k/uL MCV (80.0-100.0) fL Neutrophils # (1.3-7.7) k/uL Chloride (98-107) mmol/L Carbon Dioxide (22-30) mmol/L Glucose (74-99) mg/dL POC Glucose (mg/dL) 191 H 133 H 180 H (75-99) mg/dL 05/02/17 05/02/17 05/02/17 Range/Units 04:41 04:41 07:47 WBC 18.5 H (3.8-10.6) k/uL MCV 101.4 H (80.0-100.0) fL Neutrophils # 16.8 H (1.3-7.7) k/uL Chloride 111 H (98-107) mmol/L Carbon Dioxide 20 L (22-30) mmol/L Glucose 180 H (74-99) mg/dL POC Glucose (mg/dL) 145 H (75-99) mg/dL Microbiology - Last 24 Hours (Table) 04/30/17 18:13 Blood Culture Gram Stain - Preliminary Blood Blood Culture - Preliminary Coagulase Negative Staph 04/30/17 18:13 Blood Culture - Preliminary Blood No Growth after 24 hours 04/30/17 14:00 Blood Culture - Preliminary Blood No Growth after 24 hours 04/30/17 23:45 Urine Culture - Preliminary Urine,Voided Assessment and Plan Plan: #Community-acquired pneumonia with sepsis -stop IV fluids -Levaquin -Chest x-ray improved -Bronchodilators, Solu-Medrol, pulmonary hygiene -Supplemental oxygen, wean as able #COPD with exacerbation -Decreased Solu-Medrol - bronchodilators, pulmonary hygiene, tobacco cessation -Wean oxygen as able #Tobacco abuse -Cessation recommended -Did not want nicotine patch #hyperglycemia -Insulin sliding scale - HgB A1C 5.1 Resolved: Lactic acidosis Hypokalemia Hypomagnesemia Hypophosphatemia DVT prophylaxis: Lovenox Discussed with: pt, RN, family Anticipated discharge: [address]: home A total of 35 minutes was spent on the care of this complex patient more than 50 % of the time was spent in counseling and care coordination.
[2017-05-02] MEDS: methylPREDNISolone SOD SUCCI 40 MG/ML 1 ML VIAL IV SCH ×2 (11:50→17:41)
[2017-05-02 12:01] LABS: Glucose,Whole Blood 120 mg/dL (75-99)
--- NOTE | 2017-05-02 13:34 | P.PN ---
Subjective Principal diagnosis: Acute bilateral community-acquired pneumonia This is a 32-year-old female with history of multiple medical problems including severe COPD, chronic tobacco abuse, bipolar disorder, depression, anxiety, patient presented to the ER with a few days' history of increased shortness of breath worse on exertion,. Patient was also complaining of productive cough with yellow sputum. Wheezing, and vague chest discomfort. Patient was also complaining of generalized weakness and fatigue, painful chest upon coughing. She also complained of stuffy nose and sore throat. Took over- the-counter medications including NyQuil and [place], but minimal relief was noted. Patient has not been compliant with her inhalers for COPD, has been smoking heavily at least 1 pack per day for the last 15 years. Denies any recent travel or any recent specific occupational exposure. Chest x-ray in the ER showed bilateral pneumonia, patient was initially admitted to the regular medical floor, however her lactic acid was noted to be elevated, and was even on the rise in spite of fluid boluses. Patient was transferred to the ICU last night, given more fluid boluses, I was notified about this patient, and I recommended antibiotics in the form of Levaquin and vancomycin. Patient is ALLERGIC to penicillin. Upon my evaluation today, patient is feeling a bit better, her lactic acid is significantly improved, she remains hemodynamically stable, she continues to cough and wheeze, but definite improvement over the last 24 hours was noted. Patient is now receiving IV fluids, antibiotics in the form of Levaquin and Zosyn, bronchodilators and steroids in the form of Solu -Medrol. Will likely arrange for the patient to be transferred out of the ICU today once a bed is available. Reevaluated today on 05/02/2017, patient is doing quite well, asymptomatic except for intermittent cough and wheezing. Patient needs to be on a relatively higher dose of Solu-Medrol, hence I will keep the dose at 40 mg IV push every 6 hours. Chest x-ray is showing definite improvement based on my judgment, although the radiologist feels is about the same. But I am certain that has been significant improvement in her bilateral infiltrates based on the chest x-ray from today. Cultures so far are nondiagnostic, she had coagulase negative staph in the blood which is again a contamination. Sputum cultures are nondiagnostic. Patient continues to have a bit of leukocytosis with WBC count of 18.5 hemoglobin of 12.5. Electrolytes and renal profile are normal. Clinically the patient has made a significant improvement compared to how she felt upon admission. Patient remains on bronchodilators, steroids, vancomycin, and Levaquin. At this point, I would likely discontinue vancomycin in the next 24 hours. Objective - Vital Signs Vital signs: Vital Signs Temp 97.7 F 05/02/17 08:00 Pulse 82 05/02/17 11:26 Resp 29 H 05/02/17 09:00 BP 126/80 05/02/17 09:00 Pulse Ox 94 L 05/02/17 09:00 Intake & Output 05/01/17 05/02/17 05/02/17 18:59 06:59 18:59 Intake Total 1340 720 220 Balance 1340 720 220 Weight 69.5 kg Intake: IV 1090 720 220 0.9 at KVO 40 220 20 Sodium Chloride 0.9% 1, 800 000 ml @ 100 mls/hr IV . Q10H [facility] Rx#:[id number] Vancomycin 1,250 mg In 250 500 Sodium Chloride 0.9% 250 ml @ 125 mls/hr IVPB Q8H [facility] Rx#:[id number] magnesium 200 Intake, IV Titration 250 Amount Vancomycin 1,250 mg In 250 Sodium Chloride 0.9% 250 ml @ 125 mls/hr IVPB Q8H [facility] Rx#:[id number] Other: Voiding Method Toilet Toilet # Voids 1 2 2 # Bowel Movements 1 - Exam General: 32-year-old female in no distress at this point. Patient was examined in the ICU. Eyes: EOMI no icterus, pupils are equal and reactive to light and accommodation. ENT: Throat is clear, no fungal rash noted, no thrush. Neck: No thyromegaly, no cervical lymphadenopathy, trachea midline, suppl Cardiovascular: S1S2 reg, no murmur, no gallop. Lungs: Diffuse rhonchi bilaterally, no use of accessory muscles. Abdominal: soft, nontender to palpation, no guarding, no appreciable organomegaly, normal bowel sounds Ext: No clubbing, no edema, no cyanosis., Neuro: No gross focal neurologic deficit. Psych: Mental status exam is appropriate, and affect is slightly blunted. Skin: No rashes, no ulcerations noted. - Labs CBC & Chem 7: 05/02/17 04:41 05/02/17 04:41 Labs: Abnormal Lab Results - Last 24 Hours (Table) 05/01/17 05/01/17 05/02/17 Range/Units 17:49 20:08 04:41 WBC 18.5 H (3.8-10.6) k/uL MCV 101.4 H (80.0-100.0) fL Neutrophils # 16.8 H (1.3-7.7) k/uL Chloride (98-107) mmol/L Carbon Dioxide (22-30) mmol/L Glucose (74-99) mg/dL POC Glucose (mg/dL) 133 H 180 H (75-99) mg/dL 05/02/17 05/02/17 05/02/17 Range/Units 04:41 07:47 11:58 WBC (3.8-10.6) k/uL MCV (80.0-100.0) fL Neutrophils # (1.3-7.7) k/uL Chloride 111 H (98-107) mmol/L Carbon Dioxide 20 L (22-30) mmol/L Glucose 180 H (74-99) mg/dL POC Glucose (mg/dL) 145 H 120 H (75-99) mg/dL Microbiology - Last 24 Hours (Table) 04/30/17 18:13 Blood Culture Gram Stain - Preliminary Blood Blood Culture - Preliminary Coagulase Negative Staph 04/30/17 18:13 Blood Culture - Preliminary Blood No Growth after 24 hours 04/30/17 14:00 Blood Culture - Preliminary Blood No Growth after 24 hours 04/30/17 23:45 Urine Culture - Preliminary Urine,Voided Assessment and Plan Plan: Impression: 1 acute bilateral pneumonia, community-acquired, possibility of aspiration is not entirely ruled out, but felt to be less likely considering her history. Patient does not recall any episodes of syncope or loss of consciousness or vomiting and aspiration. Patient is now on antibiotics in the form of Levaquin and vancomycin., Antibiotics will be addressed according to the final sputum and blood cultures. Blood cultures showed contamination, sputum cultures are nondiagnostic, I plan to discontinue vancomycin in the next 24 hours and keep the patient on Levaquin for at least 10 days. 2 acute sepsis secondary to pneumonia. Patient is on the protocol for sepsis. Patient is also on GI and DVT prophylaxis. 3 acute exacerbation of COPD, patient is presently on bronchodilators and on IV Solu-Medrol. Patient is on DuoNeb, and Symbicort 4 tobacco dependence syndrome, patient was counseled regarding smoking cessation. 5 elevated blood sugar on presentation, will likely worsen with IV Solu-Medrol. However the patient will be placed on insulin sliding scale as per protocol. 6 history of bipolar disorder and depression. Recommendation: Continue present treatment plan as detailed above, patient will be transferred to the regular medical floor likely today once a bed is available. We'll continue to follow closely. Antibiotic will be changed accordingly. Time with Patient: Less than 30
[2017-05-02] MEDS ORDERED: LEVOFLOXACIN 750 MG TAB PO SCH ×2 (13:45→14:00)
[2017-05-02 17:16] LABS: Glucose,Whole Blood 160 mg/dL (75-99)
[2017-05-02 20:24] LABS: Glucose,Whole Blood 126 mg/dL (75-99)
[2017-05-02] MEDS ORDERED: methylPREDNISolone SOD SUCCI 40 MG/ML 1 ML VIAL IV SCH (21:00)
[2017-05-03] MEDS: methylPREDNISolone SOD SUCCI 40 MG/ML 1 ML VIAL IV SCH ×2 (00:35→05:14)
[2017-05-03] MEDS: HYDROcodone/APAP 5-325MG 1 EACH TAB PO PRN ×2 (03:29→08:17)
[2017-05-03 05:10] LABS: Basophils % (A) 0 %; CH 33.4; CHCM 33.5; Eosinophils % (A) 0 %; HCT 38.6 % (34.0-46.0); HDW 2.32; HGB 12.3 gm/dL (11.4-16.0); Luc # (Auto) 0.08; Luc % (Auto) 1; Lymphocytes # (A) 0.8 k/uL (1.0-4.8); Lymphocytes % (A) 6 %; MCH 32.1 pg (25.0-35.0); MCHC 31.9 g/dL (31.0-37.0); MCV 100.5 fL (80.0-100.0); Mean Platelet Volume 7.7; Monocytes # (A) 0.6 k/uL (0-1.0); Monocytes % (A) 4 %; Neutrophils # (A) 12.2 k/uL (1.3-7.7); Neutrophils % (A) 90 %; RBC 3.84 m/uL (3.80-5.40); RDW 13.6 % (11.5-15.5); WBC 13.6 k/uL (3.8-10.6); WBC (Perox) 14.26
[2017-05-03] MEDS: VANCOMYCIN 1,250 MG in SODIUM CHLORIDE 0.9% 250 ML IVPB SCH (05:14)
[2017-05-03 05:32] LABS: Anion Gap 6 mmol/L; Blood Urea Nitrogen 14 mg/dL (7-17); Calcium 8.6 mg/dL (8.4-10.2); Carbon Dioxide 22 mmol/L (22-30); Chloride 108 mmol/L (98-107); Glucose 123 mg/dL (74-99); Magnesium 1.8 mg/dL (1.6-2.3); Non-African American GFR(MDRD) >60 (>60 ml/min/1.73 sqM); Phosphorus 3.3 mg/dL (2.5-4.5); Potassium 4.1 mmol/L (3.5-5.1); Sodium 136 mmol/L (137-145)
[2017-05-03 07:28] LABS: Glucose,Whole Blood 115 mg/dL (75-99)
[2017-05-03] MEDS: MAGNESIUM SULFATE-D5W PMX 1 GM in DEXTROSE/WATER 1 100ML.BAG IVPB SCH ×2 (08:06→09:11)
[2017-05-03] MEDS: INSULIN LISPRO (humaLOG) 300 UNIT/3 ML VIAL SQ SCH (08:06)
[2017-05-03] MEDS: guaiFENesin 600 MG TABLET.ER PO SCH (08:07)
[2017-05-03] MEDS: PANTOPRAZOLE 40 MG TABLET PO SCH (08:07)
[2017-05-03] MEDS: CHOLECALCIFEROL 1,000 UNIT TAB PO SCH (08:07)
[2017-05-03] MEDS: ENOXAPARIN 40 MG/0.4 ML SYRINGE SQ SCH (08:07)
[2017-05-03] MEDS: PARoxetine 20 MG TAB PO SCH (08:08)
[2017-05-03] MEDS: ARIPiprazole 5 MG TAB PO SCH (08:08)
[2017-05-03 08:20] VITALS: BP 141/70; RESP 20; TEMP 97.9
[2017-05-03] MEDS: IPRATROPIUM-ALBUTEROL 3 ML NEB INHALATION SCH (08:22)
[2017-05-03] MEDS: SYMBICORT 160-4.5 MCG INHALER INHALATION SCH (08:22)
--- NOTE | 2017-05-03 08:31 | XR ---
EXAMINATION TYPE: XR chest 1V portable DATE OF EXAM: 05/03/2017 COMPARISON: 05/02/2017 HISTORY: Pneumonia TECHNIQUE: Single frontal view of the chest is obtained. FINDINGS: There are bilateral infiltrate with increasing consolidation and small effusion on the lef t. Heart size stable. No pneumothorax. IMPRESSION: 1. Persistent bilateral infiltrates with increasing consolidation and pleural effusion involving the left lower lobe.
[2017-05-03 08:40] VITALS: PULSE 62
--- NOTE | 2017-05-03 09:49 | P.DS ---
Providers Date of admission: 04/30/17 16:23 Expected date of discharge: 05/03/17 Attending physician: Halle Adam DO Consults: 04/30/17 19:20 Consult Physician Routine Consulting Provider: Aniya Melendez Consult Reason/Comments: ICU bakery associate Do you want consulting provider notified?: Yes Primary care physician: Stated None Patient Condition at Discharge: Stable Plan - Discharge Summary New Discharge Prescriptions: New Albuterol Nebulized [Ventolin Nebulized] 2.5 mg INHALATION RT-Q4H PRN #90 neb PRN Reason: Shortness Of Breath Or Wheezing Benzonatate [Tessalon Perles] 100 mg PO TID PRN #90 cap PRN Reason: Cough Budesonide-Formot 160-4.5 Mcg [Symbicort 160-4.5 Mcg Inhaler] 2 puff INHALATION RT-BID #1 puff guaiFENesin [Mucinex] 600 mg PO Q12HR tab Ipratropium-Albuterol Nebulize [Duoneb 0.5 mg-3 mg/3 ml Soln] 3 ml INHALATION RT-QID #120 neb Levofloxacin [Levaquin] 750 mg PO Q24H #7 tab predniSONE 20 mg PO DIRECTED #20 tab Continue ARIPiprazole [Abilify] 5 mg PO DAILY Cholecalciferol [Vitamin D3] 5,000 unit PO DAILY PARoxetine HCL [Paxil] 40 mg PO DAILY #7 tablet Omeprazole 20 mg PO BID Acetaminophen Tab [Tylenol] 650 mg PO Q4H PRN PRN Reason: Pain Discharge Medication List ARIPiprazole [Abilify] 5 mg PO DAILY 09/09/16 [History] Cholecalciferol [Vitamin D3] 5,000 unit PO DAILY 10/02/16 [History] PARoxetine HCL [Paxil] 40 mg PO DAILY #7 tablet 12/06/16 [Rx] Acetaminophen Tab [Tylenol] 650 mg PO Q4H PRN 04/30/17 [History] Omeprazole 20 mg PO BID 04/30/17 [History] Albuterol Nebulized [Ventolin Nebulized] 2.5 mg INHALATION RT-Q4H PRN #90 neb [Rx] Benzonatate [Tessalon Perles] 100 mg PO TID PRN #90 cap 09/28/17 [Rx] Budesonide-Formot 160-4.5 Mcg [Symbicort 160-4.5 Mcg Inhaler] 2 puff INHALATION RT-BID #1 puff 05/03/17 [Rx] Ipratropium-Albuterol Nebulize [Duoneb 0.5 mg-3 mg/3 ml Soln] 3 ml INHALATION RT -QID #120 neb 05/03/17 [Rx] Levofloxacin [Levaquin] 750 mg PO Q24H #7 tab 05/03/17 [Rx] guaiFENesin [Mucinex] 600 mg PO Q12HR tab 05/03/17 [Rx] predniSONE 20 mg PO DIRECTED #20 tab 05/03/17 [Rx] Follow up Appointment(s)/Referral(s): None,Stated [Primary Care Provider] - 1-2 days
--- NOTE | 2017-05-03 09:56 | P.DS ---
Providers Date of admission: 04/30/17 16:23 Expected date of discharge: 05/03/17 Attending physician: Halle Adam DO Consults: 04/30/17 19:20 Consult Physician Routine Consulting Provider: Aniya Melendez Consult Reason/Comments: ICU business process consultant Do you want consulting provider notified?: Yes Primary care physician: Stated None - Discharge Diagnosis(es) (1) Bilateral pneumonia Status: Acute (2) Sepsis Status: Acute (3) COPD with acute exacerbation Status: Acute (4) Lactic acidosis Status: Acute (5) Hyperglycemia Status: Acute (6) Electrolyte imbalance Status: Acute (7) Tobacco abuse Status: Acute (8) Bipolar affective disorder Status: Acute Hospital Course: Patient is a 32-year-old female with a past medical history of arthritis, COPD, and chronic tobacco abuse who presented with complaints of shortness of breath. In the emergency department she underwent an extensive evaluation. She was found to have pneumonia. She was given IV fluids, Levaquin , Solu-Medrol, and breathing treatments. She was admitted to the general medical floor for further monitoring and care of pneumonia. She was noted to have sepsis and a lactic acid was drawn. This resulted at 5.8. Her IV fluids were increased and she was transferred to the ICU. Her lactic acidosis quickly resolved. Her breathing greatly improved through use of steroids, bronchodilators, and antibiotics. Pulmonary was consult and added Symbicort. Transfer orders were written for the general medical floor at her [facility]. On 05/01 one of 2 blood cultures came back positive for gram- positive cocci. A second set of blood cultures were drawn. Ultimately her initial blood culture showed coag-negative staph blood cultures were negative for 24 hours. She was able to get up and ambulate without significant shortness of breath. She was able to eat. She felt vastly improved. She is determined to not resume smoking on discharge. She was stable for discharge. She will complete a course of a steroid taper and antibiotics. She was provided with prescription for a nebulizer and bronchodilator therapy. She is aware she needs to follow with her primary care physician and pulmonary as an outpatient. Patient seen and examined at bedside. Wheezing resolved, no shortness of breath , chest pain with coughing greatly improved. Vital signs reviewed and stable. General: non toxic, no distress, appears at stated age Derm: no rashes, no lesions Head: atraumatic, normocephalic, symmetric Eyes: EOMI, no lid lag, anicteric sclera ENT: no post nasal drip, no thrush Mouth: no lip lesion, mucus membranes moist Cardiovascular: S1S2 reg, no murmur, positive posterior tibial pulse bilateral, Lungs: Decreased breath sounds left base , no accessory muscle use Abdominal: soft, nontender to palpation, no guarding, no appreciable organomegaly Ext: no gross muscle atrophy, no edema, no contractures Neuro: CN II-XI grossly intact, no focal neuro deficits Psych: Alert, oriented, appropriate affect A total of 35 minutes of time were spent preparing this complex discharge summary . Patient Condition at Discharge: Stable Plan - Discharge Summary New Discharge Prescriptions: New Albuterol Nebulized [Ventolin Nebulized] 2.5 mg INHALATION RT-Q4H PRN #90 neb PRN Reason: Shortness Of Breath Or Wheezing Benzonatate [Tessalon Perles] 100 mg PO TID PRN #90 cap PRN Reason: Cough Budesonide-Formot 160-4.5 Mcg [Symbicort 160-4.5 Mcg Inhaler] 2 puff INHALATION RT-BID #1 puff guaiFENesin [Mucinex] 600 mg PO Q12HR tab Ipratropium-Albuterol Nebulize [Duoneb 0.5 mg-3 mg/3 ml Soln] 3 ml INHALATION RT-QID #120 neb Levofloxacin [Levaquin] 750 mg PO Q24H #7 tab predniSONE 20 mg PO DIRECTED #20 tab Continue ARIPiprazole [Abilify] 5 mg PO DAILY Cholecalciferol [Vitamin D3] 5,000 unit PO DAILY PARoxetine HCL [Paxil] 40 mg PO DAILY #7 tablet Omeprazole 20 mg PO BID Acetaminophen Tab [Tylenol] 650 mg PO Q4H PRN PRN Reason: Pain Discharge Medication List ARIPiprazole [Abilify] 5 mg PO DAILY 09/09/16 [History] Cholecalciferol [Vitamin D3] 5,000 unit PO DAILY 10/02/16 [History] PARoxetine HCL [Paxil] 40 mg PO DAILY #7 tablet 12/06/16 [Rx] Acetaminophen Tab [Tylenol] 650 mg PO Q4H PRN 04/30/17 [History] Omeprazole 20 mg PO BID 04/30/17 [History] Albuterol Nebulized [Ventolin Nebulized] 2.5 mg INHALATION RT-Q4H PRN #90 neb [Rx] Benzonatate [Tessalon Perles] 100 mg PO TID PRN #90 cap 05/03/17 [Rx] Budesonide-Formot 160-4.5 Mcg [Symbicort 160-4.5 Mcg Inhaler] 2 puff INHALATION RT-BID #1 puff 05/03/17 [Rx] Ipratropium-Albuterol Nebulize [Duoneb 0.5 mg-3 mg/3 ml Soln] 3 ml INHALATION RT -QID #120 neb 05/03/17 [Rx] Levofloxacin [Levaquin] 750 mg PO Q24H #7 tab 05/03/17 [Rx] guaiFENesin [Mucinex] 600 mg PO Q12HR tab 05/03/17 [Rx] predniSONE 20 mg PO DIRECTED #20 tab 05/03/17 [Rx] Follow up Appointment(s)/Referral(s): Geovanna Tello MD [STAFF PHYSICIAN] - 05/14/17 10:15 am None,Stated [Primary Care Provider] - 1-2 days (pt will be making appointment on own) Activity/Diet/Wound Care/Special Instructions: regular diet, decrease your sugar and carb intake during steroid use Activity as tolerated Follow up with your physician at clinic in 2-3 days. Discharge Disposition: HOME SELF-CARE
== END 2017-05-03 12:03 | disposition home or self-care (01) | DRG 871 ==
LOC: EC 13:10 → 4MS4W 16:23 → 6ICU 19:21
PROVIDERS: ADMIT Internal Medicine; ATTEND Internal Medicine
DX: A41.9 Sepsis, unspecified organism (principal); J18.9 Pneumonia, unspecified organism; J44.0 Chronic obstructive pulmonary disease with (acute) lower respiratory infection; M41.9 Scoliosis, unspecified; E83.42 Hypomagnesemia; J44.1 Chronic obstructive pulmonary disease with (acute) exacerbation; E87.6 Hypokalemia; F41.9 Anxiety disorder, unspecified; G43.909 Migraine, unspecified, not intractable, without status migrainosus; G89.29 Other chronic pain; M19.90 Unspecified osteoarthritis, unspecified site; M54.9 Dorsalgia, unspecified; R73.9 Hyperglycemia, unspecified; F17.200 Nicotine dependence, unspecified, uncomplicated; E83.39 Other disorders of phosphorus metabolism; F32.9 Major depressive disorder, single episode, unspecified; Z79.899 Other long term (current) drug therapy; Z88.0 Allergy status to penicillin; Z91.19 Patient's noncompliance with other medical treatment and regimen; Z82.49 Family history of ischemic heart disease and other diseases of the circulatory system
CPT/HCPCS: 36415; 71010; 71020; 80048; 80053; 80202; 81003; 83036; 83605; 83735; 84100; 85025; 87040; 87070; 87086; 87205; 87502; 94640; 96361; 96365; 96375; 99285

== ENCOUNTER 2017-10-16 03:54 | Emergency (ER) | payer OTHER ==
[2017-10-16] MEDS ORDERED: ALBUTEROL NEBULIZED 2.5 MG/3 ML INHALATION STA (04:16)
[2017-10-16] MEDS ORDERED: SODIUM CHLORIDE 0.9% 1,000 ML IV STA (04:16)
[2017-10-16] MEDS ORDERED: methylPREDNISolone SOD SUCCI 125 MG/2 ML VIAL IV STA (04:16)
--- NOTE | 2017-10-16 05:23 | XR ---
EXAM: XR Chest, 2 Views. CLINICAL HISTORY: Reason: difficulty breathing TECHNIQUE: Frontal and lateral views of the chest. COMPARISON: 05/03/17 FINDINGS: Lungs: Unremarkable. No consolidation. Pleural spaces: Unremarkable. No pneumothorax. Heart: Unremarkable. No cardiomegaly. Mediastinum: Unremarkable. Bones: Unremarkable. No acute fracture. IMPRESSION: Normal chest.
[2017-10-16 05:25] LABS: ALT 33 U/L (9-52); AST 25 U/L (14-36); Alkaline Phosphatase 71 U/L (38-126); Anion Gap 17 mmol/L; Blood Urea Nitrogen 8 mg/dL (7-17); Calcium 9.3 mg/dL (8.4-10.2); Carbon Dioxide 18 mmol/L (22-30); Chloride 108 mmol/L (98-107); Glucose 76 mg/dL (74-99); Potassium 3.9 mmol/L (3.5-5.1); Sodium 143 mmol/L (137-145); Total Bilirubin 0.3 mg/dL (0.2-1.3); Total Protein 6.6 g/dL (6.3-8.2)
[2017-10-16 05:44] LABS: Creatine Kinase 131 U/L (30-135)
[2017-10-16 05:57] LABS: Troponin I <0.012 ng/mL (0.000-0.034)
[2017-10-16 05:59] LABS: Basophils # (A) 0.1 k/uL (0-0.2); Basophils % (A) 1 %; Eosinophils # (A) 0.2 k/uL (0-0.7); Eosinophils % (A) 1 %; HCT 36.2 % (34.0-46.0); HGB 13.1 gm/dL (11.4-16.0); Lymphocytes % (A) 22 %; MCH 32.9 pg (25.0-35.0); MCHC 36.1 g/dL (31.0-37.0); MCV 91.1 fL (80.0-100.0); Mean Platelet Volume 7.2; Monocytes # (A) 0.7 k/uL (0-1.0); Monocytes % (A) 6 %; Neutrophils # (A) 9.2 k/uL (1.3-7.7); Neutrophils % (A) 69 %; Platelet Count 365 k/uL (150-450); RBC 3.98 m/uL (3.80-5.40); RDW 12.9 % (11.5-15.5); WBC 13.4 k/uL (3.8-10.6)
[2017-10-16 06:00] LABS: Amphetamine Screen,Urine Not Detected (NotDetected); Barbiturate Screen,Urine Not Detected (NotDetected); Benzodiazepines Screen,Urine Not Detected (NotDetected); Cocaine Screen,Urine Detected (NotDetected); Methadone Screen, Urine Not Detected (NotDetected); Opiate Screen,Urine Not Detected (NotDetected); Oxycodone Screen, Urine Not Detected (NotDetected); Phencyclidine Screen,Urine Not Detected (NotDetected); Tricyclic Antidepressant,Urine Not Detected (NotDetected); Urn Cannabinoid Scrn Detected (NotDetected)
--- NOTE | 2017-10-16 06:18 | ED ---
SOB HPI - General Chief Complaint: Shortness of Breath Stated Complaint: MADDY Time Seen by Provider: 10/16/17 04:16 Source: patient, EMS Mode of arrival: EMS Limitations: no limitations - History of Present Illness Initial Comments: 32 years old female brought in now with a shortness of breath and tachycardia heart rate was around 1:30 and a she was breathing 24 breaths per minute she denies any pain just shortness of breath she denies any fever or chills she has been coughing up she has a history of tobacco use. Denies any headache no blurred vision no neck stiffness no chest pain does complain about shortness of breath no pleuritic chest pain no abdominal pain no frequency urgency dysuria denies any street drug use - Related Data Home Medications Medication Instructions Recorded Confirmed ARIPiprazole [Abilify] 5 mg PO DAILY 09/09/16 04/30/17 Cholecalciferol [Vitamin D3] 5,000 unit PO DAILY 10/02/16 04/30/17 Acetaminophen Tab [Tylenol] 650 mg PO Q4H PRN 04/30/17 04/30/17 Omeprazole 20 mg PO BID 04/30/17 04/30/17 Previous Rx's Medication Instructions Recorded PARoxetine HCL [Paxil] 40 mg PO DAILY #7 tablet 12/06/16 Albuterol Nebulized [Ventolin 2.5 mg INHALATION RT-Q4H PRN #90 05/03/17 Nebulized] neb Benzonatate [Tessalon Perles] 100 mg PO TID PRN #90 cap 05/03/17 Budesonide-Formot 160-4.5 Mcg 2 puff INHALATION RT-BID #1 puff 05/03/17 [Symbicort 160-4.5 Mcg Inhaler] Ipratropium-Albuterol Nebulize 3 ml INHALATION RT-QID #120 neb 05/03/17 [Duoneb 0.5 mg-3 mg/3 ml Soln] Levofloxacin [Levaquin] 750 mg PO Q24H #7 tab 05/03/17 guaiFENesin [Mucinex] 600 mg PO Q12HR tab 05/03/17 predniSONE 20 mg PO DIRECTED #20 tab 05/03/17 Acetaminophen-Codeine 300-30mg 1 tab PO Q6H PRN #15 tablet 06/06/17 [Tylenol #3] PARoxetine HCL [Paxil] 40 mg PO DAILY #14 tab 06/06/17 Sulfamethoxazole/Trimethoprim 1 each PO BID #20 tablet 06/06/17 [Bactrim DS 800-160 mg] predniSONE 50 mg PO DAILY #5 tablet 10/16/17 Allergies Allergy/AdvReac Type Severity Reaction Status Date / Time Penicillins Allergy Rash/Hives Verified 10/16/17 04:05 Review of Systems ROS Statement: Those systems with pertinent positive or pertinent negative responses have been documented in the HPI. ROS Other: All systems not noted in ROS Statement are negative. Past Medical History Past Medical History: COPD, Pneumonia Additional Past Medical History / Comment(s): migraines, scoliosis, chronic back pain, arthritis, chronic bronchitis History of Any Multi-Drug Resistant Organisms: MRSA Date of last positivie culture/infection: 06/06/17 MDRO Source:: AXILLA Past Surgical History: No Surgical Hx Reported Additional Past Surgical History / Comment(s): dental surgery Past Anesthesia/Blood Transfusion Reactions: No Reported Reaction Past Psychological History: Anxiety, Bipolar, Depression Smoking Status: Current every day smoker Past Alcohol Use History: Occasional Past Drug Use History: Cocaine, Marijuana - Past Family History Mother Additional Family Medical History / Comment(s): Hypertension, stroke, cancer Father Family Medical History: No Reported History General Exam - General Exam Comments Initial Comments: General: The patient is awake and alert, , and does not appear acutely ill. She is quite anxious Skin: Skin is warm and dry and no rashes or lesions are noted. Eye: Pupils are equal, round and reactive to light, extra-ocular movements are intact; there is normal conjunctiva bilaterally. Ears, nose, mouth and throat: There are moist mucous membranes and no oral lesions. Neck: The neck is supple, there is no tenderness or JVD. Cardiovascular: There is a regular rate and rhythm. But she has a tachycardia heart rate is around 1:30 Respiratory: To auscultation bilateral, mild wheezing noticed bilaterally Gastrointestinal: Soft, non-distended, non-tender abdomen without masses or organomegaly noted. There is no rebound or guarding present. Bowel sounds are unremarkable. Back: There is no tenderness to palpation in the midline. There is no obvious deformity. Musculoskeletal: Normal ROM, no tenderness, There is no pedal edema. There is no calf tenderness or swelling. No cords were appreciated. Neurological: CN II-XII intact, Cranial nerves III through XII are intact. There are no obvious motor or sensory deficits. Coordination appears grossly intact. Speech is normal. Psychiatric: Cooperative, appropriate mood & affect, normal judgment. Limitations: no limitations Course Vital Signs 10/16/17 10/16/17 10/16/17 03:58 04:06 04:35 Temperature 97.6 F Pulse Rate 130 H 107 H Respiratory 32 H 32 H Rate Blood Pressure 143/75 O2 Sat by Pulse 97 Oximetry 10/16/17 10/16/17 10/16/17 04:51 05:14 05:52 Temperature Pulse Rate 128 H 123 H 98 Respiratory 28 H 24 Rate Blood Pressure 124/69 115/55 O2 Sat by Pulse 96 93 L Oximetry EKG is normal sinus rhythm ventricular rate is 100 AK interval is 1:30 QRS duration is 4084 QT/QTC 358/461 review of the review of this EKG does not reveal any ST elevation or ST depression She is reassessed at term 610, chest x-rays normal troponin and EKG are unremarkable white count is slightly elevated compress metabolic panel is unremarkable urinalysis confirms polysubstance abuse Medical Decision Making - Lab Data Result diagrams: 10/16/17 04:45 10/16/17 04:45 Lab Results 10/16/17 10/16/17 10/16/17 Range/Units 04:45 04:45 04:45 WBC 13.4 H (3.8-10.6) k/uL RBC 3.98 (3.80-5.40) m/uL Hgb 13.1 (11.4-16.0) gm/dL Hct 36.2 (34.0-46.0) % MCV 91.1 (80.0-100.0) fL MCH 32.9 (25.0-35.0) pg MCHC 36.1 (31.0-37.0) g/dL RDW 12.9 (11.5-15.5) % Plt Count 365 (150-450) k/uL Neutrophils % 69 % Lymphocytes % 22 % Monocytes % 6 % Eosinophils % 1 % Basophils % 1 % Neutrophils # 9.2 H (1.3-7.7) k/uL Lymphocytes # 3.0 (1.0-4.8) k/uL Monocytes # 0.7 (0-1.0) k/uL Eosinophils # 0.2 (0-0.7) k/uL Basophils # 0.1 (0-0.2) k/uL Sodium 143 (137-145) mmol/L Potassium 3.9 (3.5-5.1) mmol/L Chloride 108 H (98-107) mmol/L Carbon Dioxide 18 L (22-30) mmol/L Anion Gap 17 mmol/L BUN 8 (7-17) mg/dL Creatinine 0.80 (0.52-1.04) mg/dL Est GFR (CKD-EPI)AfAm >90 (>60 ml/min/1.73 sqM) Est GFR (CKD-EPI)NonAf >90 (>60 ml/min/1.73 sqM) Glucose 76 (74-99) mg/dL Calcium 9.3 (8.4-10.2) mg/dL Total Bilirubin 0.3 (0.2-1.3) mg/dL AST 25 (14-36) U/L ALT 33 (9-52) U/L Alkaline Phosphatase 71 (38-126) U/L Total Creatine Kinase 131 (30-135) U/L CK-MB (CK-2) 2.0 (0.0-2.4) ng/mL CK-MB (CK-2) Rel Index 1.5 Troponin I <0.012 (0.000-0.034) ng/mL Total Protein 6.6 (6.3-8.2) g/dL Albumin 4.0 (3.5-5.0) g/dL Urine Opiates Screen (NotDetected) Ur Oxycodone Screen (NotDetected) Urine Methadone Screen (NotDetected) Ur Propoxyphene Screen (NotDetected) Ur Barbiturates Screen (NotDetected) U Tricyclic Antidepress (NotDetected) Ur Phencyclidine Scrn (NotDetected) Ur Amphetamines Screen (NotDetected) U Methamphetamines Scrn (NotDetected) U Benzodiazepines Scrn (NotDetected) Urine Cocaine Screen (NotDetected) U Marijuana (THC) Screen (NotDetected) 10/16/17 Range/Units 05:23 WBC (3.8-10.6) k/uL RBC (3.80-5.40) m/uL Hgb (11.4-16.0) gm/dL Hct (34.0-46.0) % MCV (80.0-100.0) fL MCH (25.0-35.0) pg MCHC (31.0-37.0) g/dL RDW (11.5-15.5) % Plt Count (150-450) k/uL Neutrophils % % Lymphocytes % % Monocytes % % Eosinophils % % Basophils % % Neutrophils # (1.3-7.7) k/uL Lymphocytes # (1.0-4.8) k/uL Monocytes # (0-1.0) k/uL Eosinophils # (0-0.7) k/uL Basophils # (0-0.2) k/uL Sodium (137-145) mmol/L Potassium (3.5-5.1) mmol/L Chloride (98-107) mmol/L Carbon Dioxide (22-30) mmol/L Anion Gap mmol/L BUN (7-17) mg/dL Creatinine (0.52-1.04) mg/dL Est GFR (CKD-EPI)AfAm (>60 ml/min/1.73 sqM) Est GFR (CKD-EPI)NonAf (>60 ml/min/1.73 sqM) Glucose (74-99) mg/dL Calcium (8.4-10.2) mg/dL Total Bilirubin (0.2-1.3) mg/dL AST (14-36) U/L ALT (9-52) U/L Alkaline Phosphatase (38-126) U/L Total Creatine Kinase (30-135) U/L CK-MB (CK-2) (0.0-2.4) ng/mL CK-MB (CK-2) Rel Index Troponin I (0.000-0.034) ng/mL Total Protein (6.3-8.2) g/dL Albumin (3.5-5.0) g/dL Urine Opiates Screen Not Detected (NotDetected) Ur Oxycodone Screen Not Detected (NotDetected) Urine Methadone Screen Not Detected (NotDetected) Ur Propoxyphene Screen Not Detected (NotDetected) Ur Barbiturates Screen Not Detected (NotDetected) U Tricyclic Antidepress Not Detected (NotDetected) Ur Phencyclidine Scrn Not Detected (NotDetected) Ur Amphetamines Screen Not Detected (NotDetected) U Methamphetamines Scrn Detected H (NotDetected) U Benzodiazepines Scrn Not Detected (NotDetected) Urine Cocaine Screen Detected H (NotDetected) U Marijuana (THC) Screen Detected H (NotDetected) Disposition Clinical Impression: Bronchitis, Polysubstance abuse Disposition: HOME SELF-CARE Condition: Good Instructions: Acute Bronchitis (ED) Prescriptions: predniSONE 50 mg PO DAILY #5 tablet Referrals: None,Stated [Primary Care Provider] - 1-2 days
[2017-10-16 06:24] VITALS: BP 100/51; PULSE 101; RESP 22; TEMP 97.9
== END 2017-10-16 06:29 | disposition home or self-care (01) ==
LOC: EC 03:54
DX: J44.9 Chronic obstructive pulmonary disease, unspecified (principal); F19.10 Other psychoactive substance abuse, uncomplicated; D72.829 Elevated white blood cell count, unspecified; R00.0 Tachycardia, unspecified; F31.9 Bipolar disorder, unspecified; F41.9 Anxiety disorder, unspecified; F17.200 Nicotine dependence, unspecified, uncomplicated; Z86.14 Personal history of Methicillin resistant Staphylococcus aureus infection; Z79.899 Other long term (current) drug therapy; Z88.0 Allergy status to penicillin
CPT/HCPCS: 36415; 94640; 93005; 80053; 82550; 82553; 84484; 85025; 80306; 71046; 99285; 96374; 96361 ×2; J2930

== ENCOUNTER 2017-11-01 07:00 | Emergency (ER) | payer OTHER ==
[2017-11-01] MEDS ORDERED: LEVOFLOXACIN 750 MG TAB PO STA (08:06)
[2017-11-01] MEDS ORDERED: PROMETHAZ-COD 6.25-10 MG/5 ML 5 ML CUP PO STA (08:06)
[2017-11-01] MEDS ORDERED: methylPREDNISolone SOD SUCCI 125 MG/2 ML VIAL IV STA (08:06)
[2017-11-01] MEDS ORDERED: IPRATROPIUM-ALBUTEROL 3 ML NEB INHALATION STA (08:07)
[2017-11-01 08:21] LABS: Basophils # (A) 0.1 k/uL (0-0.2); Basophils % (A) 1 %; Eosinophils # (A) 0.1 k/uL (0-0.7); Eosinophils % (A) 1 %; HGB 13.4 gm/dL (11.4-16.0); Lymphocytes # (A) 1.6 k/uL (1.0-4.8); Lymphocytes % (A) 15 %; MCH 33.2 pg (25.0-35.0); MCHC 36.3 g/dL (31.0-37.0); MCV 91.6 fL (80.0-100.0); Mean Platelet Volume 6.7; Monocytes # (A) 0.5 k/uL (0-1.0); Monocytes % (A) 5 %; Neutrophils # (A) 8.1 k/uL (1.3-7.7); Neutrophils % (A) 77 %; Platelet Count 290 k/uL (150-450); RBC 4.04 m/uL (3.80-5.40); RDW 13.2 % (11.5-15.5); WBC 10.5 k/uL (3.8-10.6)
--- NOTE | 2017-11-01 08:22 | XR ---
EXAMINATION TYPE: XR chest 2V DATE OF EXAM: 11/01/2017 COMPARISON: Chest x-ray from 16 days ago. HISTORY: Cough and congestion. TECHNIQUE: Frontal and lateral views of the chest are obtained. FINDINGS: There is no focal air space opacity, pleural effusion, or pneumothorax seen. The cardiac silhouette size is within normal limits. The osseous structures are intact. IMPRESSION: No suspicious acute pulmonary process. No significant change from prior.
--- NOTE | 2017-11-01 08:53 | ED ---
URI HPI - General Chief Complaint: Upper Respiratory Infection Stated Complaint: Cough Time Seen by Provider: 11/01/17 07:52 Source: patient, RN notes reviewed, old records reviewed Mode of arrival: ambulatory Limitations: no limitations - History of Present Illness Initial Comments: This patient is a 32 year old smoker with CC of cough congestion and difficulty breathing for 3 weeks. She reports it became progressively worse over the past few days. She has been using OTC remedies with little relief. No history of COPD and she does not use inhalers. She reports it has been a productive cough. She denies chest pain or fever, reports chills. She denies vomiting, nausea, abdominal pain, headache, changes in bowel and bladder habits. - Related Data Home Medications Medication Instructions Recorded Confirmed Cholecalciferol [Vitamin D3] 5,000 unit PO DAILY 10/02/16 11/01/17 Famotidine [Pepcid] 20 mg PO BID 11/01/17 11/01/17 Ibuprofen [Motrin] 800 mg PO Q6H PRN 11/01/17 11/01/17 Medroxyprogesterone Acetate 150 mg IM Q90D 11/01/17 11/01/17 [Depo-Provera] Previous Rx's Medication Instructions Recorded Albuterol Inhaler [Ventolin Hfa 1 - 2 puff INHALATION Q6HR PRN #1 11/01/17 Inhaler] inhaler Levofloxacin [Levaquin] 750 mg PO DAILY #5 tab 11/01/17 Promethazine/Dextromethorphan 5 ml PO TID #120 ml 11/01/17 [Phenergan DM Syrup] predniSONE 50 mg PO DAILY #5 tablet 11/01/17 Allergies Allergy/AdvReac Type Severity Reaction Status Date / Time Penicillins Allergy Rash/Hives Verified 11/01/17 07:54 Review of Systems ROS Statement: Those systems with pertinent positive or pertinent negative responses have been documented in the HPI. ROS Other: All systems not noted in ROS Statement are negative. Past Medical History Past Medical History: COPD, Pneumonia Additional Past Medical History / Comment(s): migraines, scoliosis, chronic back pain, arthritis, chronic bronchitis History of Any Multi-Drug Resistant Organisms: MRSA Date of last positivie culture/infection: 06/06/17 MDRO Source:: AXILLA Past Surgical History: No Surgical Hx Reported Additional Past Surgical History / Comment(s): dental surgery Past Anesthesia/Blood Transfusion Reactions: No Reported Reaction Past Psychological History: Anxiety, Bipolar, Depression Smoking Status: Current every day smoker Past Alcohol Use History: Occasional Past Drug Use History: Cocaine, Marijuana - Past Family History Mother Additional Family Medical History / Comment(s): Hypertension, stroke, cancer Father Family Medical History: No Reported History General Exam - General Exam Comments Initial Comments: 32 year old female, no distress. Limitations: no limitations General appearance: alert, in no apparent distress Head exam: Present: atraumatic, normocephalic, normal inspection Eye exam: Present: normal appearance, PERRL, EOMI. Absent: scleral icterus, conjunctival injection, periorbital swelling ENT exam: Present: normal exam, mucous membranes moist Neck exam: Present: normal inspection. Absent: tenderness, meningismus, lymphadenopathy Respiratory exam: Present: wheezes. Absent: normal lung sounds bilaterally, respiratory distress, rales, rhonchi, stridor Cardiovascular Exam: Present: regular rate, normal rhythm, normal heart sounds. Absent: systolic murmur, diastolic murmur, rubs, gallop, clicks Neurological exam: Present: alert, oriented X3, CN II-XII intact Psychiatric exam: Present: normal affect, normal mood Skin exam: Present: warm, dry, intact, normal color. Absent: rash Course Vital Signs 11/01/17 11/01/17 11/01/17 07:07 08:20 08:36 Temperature 97.7 F Pulse Rate 99 100 104 H Respiratory 18 Rate Blood Pressure 126/77 O2 Sat by Pulse 98 Oximetry 11/01/17 09:13 Temperature 97.4 F L Pulse Rate 106 H Respiratory 20 Rate Blood Pressure 129/74 O2 Sat by Pulse 98 Oximetry Medical Decision Making - Medical Decision Making This patient is a 32 year old female with cough, congestion, and wheezing. She was given double Douneb treatment and IM solumedrol. She has improvement of airmovement. She had a normal CXR. At this time treat patient for COPD exacerbation with steriods, inhaler, levaquin, and cough syrup. Discussed follow up with PCP. She has an appt later this week. All questions answeed and return parameters discussed. - Lab Data Result diagrams: 11/01/17 07:50 Lab Results 03/29/18 Range/Units 07:50 WBC 10.5 (3.8-10.6) k/uL RBC 4.04 (3.80-5.40) m/uL Hgb 13.4 (11.4-16.0) gm/dL Hct 37.0 (34.0-46.0) % MCV 91.6 (80.0-100.0) fL MCH 33.2 (25.0-35.0) pg MCHC 36.3 (31.0-37.0) g/dL RDW 13.2 (11.5-15.5) % Plt Count 290 (150-450) k/uL Neutrophils % 77 % Lymphocytes % 15 % Monocytes % 5 % Eosinophils % 1 % Basophils % 1 % Neutrophils # 8.1 H (1.3-7.7) k/uL Lymphocytes # 1.6 (1.0-4.8) k/uL Monocytes # 0.5 (0-1.0) k/uL Eosinophils # 0.1 (0-0.7) k/uL Basophils # 0.1 (0-0.2) k/uL Disposition Clinical Impression: Bronchitis Disposition: HOME SELF-CARE Condition: Good Instructions: Upper Respiratory Infection (ED) Additional Instructions: Patient advised to rest, increase fluid intake. Take antibiotics and steroids as prescribed. Start the steroids and antibiotics tomorrow as she had the first dose today. Take the cough syrup and albuterol inhaler and use as directed. Prescriptions: Albuterol Inhaler [Ventolin Hfa Inhaler] 1 - 2 puff INHALATION Q6HR PRN #1 inhaler PRN Reason: Shortness Of Breath Levofloxacin [Levaquin] 750 mg PO DAILY #5 tab predniSONE 50 mg PO DAILY #5 tablet Promethazine/Dextromethorphan [Phenergan DM Syrup] 5 ml PO TID #120 ml Referrals: None,Stated [Primary Care Provider] - 1-2 days Padmini Mcdonald MD [STAFF PHYSICIAN] - 1-2 days Time of Disposition: 08:55
[2017-11-01 09:14] VITALS: BP 129/74; PULSE 106; RESP 20; TEMP 97.4
== END 2017-11-01 09:14 | disposition home or self-care (01) ==
LOC: EC 07:00
DX: J40 Bronchitis, not specified as acute or chronic (principal); J44.9 Chronic obstructive pulmonary disease, unspecified; F17.200 Nicotine dependence, unspecified, uncomplicated; Z86.14 Personal history of Methicillin resistant Staphylococcus aureus infection; Z79.3 Long term (current) use of hormonal contraceptives; Z79.899 Other long term (current) drug therapy; Z88.0 Allergy status to penicillin
CPT/HCPCS: 99284; 96374; 36415; 94640; 85025; 71046; J2930

== ENCOUNTER 2018-01-11 07:08 | Emergency (ER) | payer OTHER ==
[2018-01-11 07:19] VITALS: BP 131/87; PULSE 89; TEMP 97.8
[2018-01-11 07:32] VITALS: RESP 18
--- NOTE | 2018-01-11 07:50 | ED ---
General Adult HPI - General Chief complaint: Upper Respiratory Infection Stated complaint: Cough Time Seen by Provider: 01/11/18 07:15 Source: patient, RN notes reviewed Mode of arrival: ambulatory Limitations: no limitations - History of Present Illness Initial comments: This is a 32-year-old female presents emergency Department complaining of a cough with sputum production and wheezing for the last 3 days. Patient states been getting aggressively worse. Patient states she does smoke. Patient states she does have a Ventolin inhaler at home and that has not been helping with the cough. Patient denies any fever chills per patient denies any chest pain or palpitations. - Related Data Home Medications Medication Instructions Recorded Confirmed Ibuprofen [Motrin] 800 mg PO Q6H PRN 11/01/17 01/11/18 Gabapentin [Neurontin] 100 mg PO BID 01/11/18 01/11/18 Omeprazole 20 mg PO DAILY 01/11/18 01/11/18 Previous Rx's Medication Instructions Recorded Azithromycin [Zithromax Tri-Herber] 500 mg PO DAILY #3 tab 01/11/18 Allergies Allergy/AdvReac Type Severity Reaction Status Date / Time Penicillins Allergy Rash/Hives Verified 01/11/18 07:23 Review of Systems ROS Statement: Those systems with pertinent positive or pertinent negative responses have been documented in the HPI. ROS Other: All systems not noted in ROS Statement are negative. Past Medical History Past Medical History: COPD, Pneumonia Additional Past Medical History / Comment(s): migraines, scoliosis, chronic back pain, arthritis, chronic bronchitis History of Any Multi-Drug Resistant Organisms: MRSA Date of last positivie culture/infection: 06/06/17 MDRO Source:: AXILLA Past Surgical History: No Surgical Hx Reported Additional Past Surgical History / Comment(s): dental surgery Past Anesthesia/Blood Transfusion Reactions: No Reported Reaction Past Psychological History: Anxiety, Bipolar, Depression Smoking Status: Current every day smoker Past Alcohol Use History: Occasional Past Drug Use History: Cocaine, Marijuana - Past Family History Mother Additional Family Medical History / Comment(s): Hypertension, stroke, cancer Father Family Medical History: No Reported History General Exam - General Exam Comments Initial Comments: GENERAL: Patient is well-developed and well-nourished. Patient is nontoxic and well- hydrated and is in mild distress. ENT: Neck is soft and supple. No significant lymphadenopathy is noted. Oropharynx is clear. Moist mucous membranes. Neck has full range of motion without eliciting any pain. EYES: The sclera were anicteric and conjunctiva were pink and moist. Extraocular movements were intact and pupils were equal round and reactive to light. Eyelids were unremarkable. PULMONARY: Extra wheezing slightly CARDIOVASCULAR: There is a regular rate and rhythm without any murmurs gallops or rubs. SKIN: Skin is clear with no lesions or rashes and otherwise unremarkable. NEUROLOGIC: Patient is alert and oriented x3. Cranial nerves II through XII are grossly intact. Motor and sensory are also intact. Normal speech, volume and content. Symmetrical smile. MUSCULOSKELETAL: Normal extremities with adequate strength and full range of motion. LYMPHATICS: No significant lymphadenopathy is noted PSYCHIATRIC: Normal psychiatric evaluation. Normal interpersonal interactions appears functionally intact in deals appropriately with others. No signs of depression. No signs of anxiety. Limitations: no limitations Course Vital Signs 01/11/18 01/11/18 07:17 07:30 Temperature 97.8 F Pulse Rate 89 Respiratory 22 18 Rate Blood Pressure 131/87 O2 Sat by Pulse 99 Oximetry Disposition Clinical Impression: Acute bronchitis Disposition: HOME SELF-CARE Instructions: Acute Bronchitis (ED) Prescriptions: Azithromycin [Zithromax Tri-Herber] 500 mg PO DAILY #3 tab Is patient prescribed a controlled substance at d/c from ED?: No Referrals: [facility] [Primary Care Provider] - 1-2 days Time of Disposition: 07:49
== END 2018-01-11 07:59 | disposition home or self-care (01) ==
LOC: EC 07:08
DX: J20.9 Acute bronchitis, unspecified (principal); J44.0 Chronic obstructive pulmonary disease with (acute) lower respiratory infection; F41.9 Anxiety disorder, unspecified; F17.200 Nicotine dependence, unspecified, uncomplicated; Z79.899 Other long term (current) drug therapy; Z88.0 Allergy status to penicillin; Z86.14 Personal history of Methicillin resistant Staphylococcus aureus infection
CPT/HCPCS: 99283

== ENCOUNTER 2018-04-23 02:15 | Emergency (ER) | payer OTHER ==
--- NOTE | 2018-04-23 02:33 | ED ---
Alcohol HPI - General Source: patient, EMS Mode of arrival: EMS Limitations: no limitations <Frank Grijalva - Last Filed: 04/23/18 03:29> <Catalino Wells - Last Filed: 04/23/18 09:37> - General Chief Complaint: Alcohol Stated Complaint: ETOH Time Seen by Provider: 04/23/18 02:19 - History of Present Illness Initial Comments: This is a 33-year-old female presents emergency Department with police and by EMS for alcohol intoxication. Patient was found intoxicated, sleeping on the grass of someone's front yard. Patient does admit to alcohol use. Denies any drug use. Patient was being combative, belligerent with EMS staff. Patient has no physical complaints denies headache, chest pain, shortness breath, dizziness, nausea, vomiting. (Frank Grijalva) - Related Data Home Medications Medication Instructions Recorded Confirmed Ibuprofen [Motrin] 800 mg PO Q6H PRN 11/01/17 04/23/18 Gabapentin [Neurontin] 100 mg PO BID 01/11/18 04/23/18 Omeprazole 20 mg PO DAILY 01/11/18 04/23/18 Allergies Allergy/AdvReac Type Severity Reaction Status Date / Time Penicillins Allergy Rash/Hives Verified 04/23/18 02:24 Review of Systems ROS Other: All systems not noted in ROS Statement are negative. <Frank Grijalva - Last Filed: 04/23/18 03:29> ROS Other: All systems not noted in ROS Statement are negative. <Catalino Wells - Last Filed: 04/23/18 09:37> ROS Statement: Those systems with pertinent positive or pertinent negative responses have been documented in the HPI. Past Medical History Past Medical History: COPD, Pneumonia Additional Past Medical History / Comment(s): migraines, scoliosis, chronic back pain, arthritis, chronic bronchitis History of Any Multi-Drug Resistant Organisms: MRSA Date of last positivie culture/infection: 06/06/17 MDRO Source:: AXILLA Past Surgical History: No Surgical Hx Reported Additional Past Surgical History / Comment(s): dental surgery Past Anesthesia/Blood Transfusion Reactions: No Reported Reaction Past Psychological History: Anxiety, Bipolar, Depression Smoking Status: Current every day smoker Past Alcohol Use History: Occasional Past Drug Use History: Cocaine, Marijuana - Past Family History Mother Additional Family Medical History / Comment(s): Hypertension, stroke, cancer Father Family Medical History: No Reported History <RudiFrank George - Last Filed: 04/23/18 03:29> General Exam Limitations: no limitations General appearance: alert, in no apparent distress, appears intoxicated Head exam: Present: atraumatic, normocephalic, normal inspection Eye exam: Present: normal appearance, PERRL, EOMI. Absent: scleral icterus, conjunctival injection, periorbital swelling ENT exam: Present: normal exam, normal oropharynx, mucous membranes moist Neck exam: Present: normal inspection, full ROM. Absent: tenderness, meningismus, lymphadenopathy Respiratory exam: Present: normal lung sounds bilaterally. Absent: respiratory distress, wheezes, rales, rhonchi, stridor Cardiovascular Exam: Present: regular rate, normal rhythm, normal heart sounds. Absent: systolic murmur, diastolic murmur, rubs, gallop, clicks GI/Abdominal exam: Present: soft, normal bowel sounds. Absent: distended, tenderness, guarding, rebound, rigid Neurological exam: Present: alert, oriented X3, CN II-XII intact Skin exam: Present: warm, dry, intact, normal color. Absent: rash <Frank Grijalva Doris - Last Filed: 04/23/18 03:29> Course <Frank Grijalva Doris - Last Filed: 04/23/18 03:29> <Catalino Wells - Last Filed: 04/23/18 09:37> Vital Signs 04/23/18 04/23/18 04/23/18 02:21 05:58 07:33 Temperature 97 F L Pulse Rate 105 H Respiratory 22 16 16 Rate Blood Pressure 197/77 O2 Sat by Pulse 98 Oximetry 04/23/18 09:30 Temperature 97.9 F Pulse Rate 95 Respiratory 18 Rate Blood Pressure 102/59 O2 Sat by Pulse 96 Oximetry - Reevaluation(s) Reevaluation #1: 04/23/18 09:36 Patient is currently awake alert oriented 3 able ambulate. Patient will be discharged (Catalino Wells) Medical Decision Making <Frank Grijalva - Last Filed: 04/23/18 03:29> <Catalino Wells - Last Filed: 04/23/18 09:37> - Medical Decision Making 33-year-old female presented emergency from with police and EMS. Patient was found to be intoxicated and have cocaine positive on urine drug screen. Patient was observed and is clinically sober. Patient will be discharged at this time return parameters were discussed. (Frank Grijalva) - Lab Data Lab Results 04/23/18 Range/Units 02:30 Urine Opiates Screen Not Detected (NotDetected) Ur Oxycodone Screen Not Detected (NotDetected) Urine Methadone Screen Not Detected (NotDetected) Ur Propoxyphene Screen Not Detected (NotDetected) Ur Barbiturates Screen Detected H (NotDetected) U Tricyclic Antidepress Not Detected (NotDetected) Ur Phencyclidine Scrn Not Detected (NotDetected) Ur Amphetamines Screen Not Detected (NotDetected) U Methamphetamines Scrn Not Detected (NotDetected) U Benzodiazepines Scrn Not Detected (NotDetected) Urine Cocaine Screen Detected H (NotDetected) U Marijuana (THC) Screen Not Detected (NotDetected) Disposition <Frank Grijalva - Last Filed: 04/23/18 03:29> Is patient prescribed a controlled substance at d/c from ED?: No <Catalino Wells - Last Filed: 04/23/18 09:37> Clinical Impression: Alcoholic intoxication, Cocaine abuse Disposition: HOME SELF-CARE Condition: Good Instructions: Alcohol Intoxication (ED) Additional Instructions: Please return to the Emergency Department if symptoms worsen or any other concerns. Referrals: None,Stated [Primary Care Provider] - 1-2 days
[2018-04-23 02:55] LABS: Amphetamine Screen,Urine Not Detected (NotDetected); Barbiturate Screen,Urine Detected (NotDetected); Benzodiazepines Screen,Urine Not Detected (NotDetected); Cocaine Screen,Urine Detected (NotDetected); Methadone Screen, Urine Not Detected (NotDetected); Opiate Screen,Urine Not Detected (NotDetected); Oxycodone Screen, Urine Not Detected (NotDetected); Phencyclidine Screen,Urine Not Detected (NotDetected); Tricyclic Antidepressant,Urine Not Detected (NotDetected); Urn Cannabinoid Scrn Not Detected (NotDetected)
[2018-04-23 09:33] VITALS: BP 102/59; PULSE 95; RESP 18; TEMP 97.9
== END 2018-04-23 09:48 | disposition home or self-care (01) ==
LOC: EC 02:15
DX: F10.120 Alcohol abuse with intoxication, uncomplicated (principal); F14.10 Cocaine abuse, uncomplicated; F17.200 Nicotine dependence, unspecified, uncomplicated; Z86.14 Personal history of Methicillin resistant Staphylococcus aureus infection; Z79.899 Other long term (current) drug therapy; Z88.0 Allergy status to penicillin
CPT/HCPCS: 80306; 99284

== ENCOUNTER 2018-05-22 04:01 | Inpatient (IN) | payer MEDICAID, OTHER ==
--- NOTE | 2018-05-22 04:35 | ED ---
Psych HPI - General Source: patient Mode of arrival: ambulatory - History of Present Illness MD Complaint: suicidal ideation, feels depressed -: month(s) Associated Psychiatric Symptoms: depression, suicidal ideation History of same: Yes Quality: getting worse Improves With: none Worsens With: alcohol Context: significant life stressor Associated Symptoms: denies other symptoms <David Hurley - Last Filed: 05/22/18 04:33> <Travon Trammell - Last Filed: 05/22/18 10:07> - General Chief Complaint: Psychiatric Symptoms Stated Complaint: mental health Time Seen by Provider: 05/22/18 04:19 - History of Present Illness Initial Comments: This patient is a 33-year-old woman with history of previous depression. She states that she had stopped taking her medications about 8 or 9 months ago. The patient then had her mother in March, and since that time her mood is been worsening and now she is having suicidal ideation. (David Hurley) - Related Data Home Medications Medication Instructions Recorded Confirmed Omeprazole 20 mg PO DAILY 01/11/18 05/22/18 Cholecalciferol [Vitamin D3] 5,000 unit PO DAILY 05/22/18 05/22/18 Gabapentin [Neurontin] 100 mg PO BID 05/22/18 05/22/18 Ibuprofen [Motrin] 400 mg PO Q8HR PRN 05/22/18 05/22/18 Lisinopril [Zestril] 2.5 mg PO DAILY 05/22/18 05/22/18 Allergies Allergy/AdvReac Type Severity Reaction Status Date / Time Penicillins Allergy Rash/Hives Verified 05/22/18 08:12 Review of Systems ROS Other: All systems not noted in ROS Statement are negative. Constitutional: Denies: fever, chills Respiratory: Denies: cough, dyspnea Cardiovascular: Denies: chest pain, palpitations Gastrointestinal: Denies: abdominal pain, vomiting, diarrhea Genitourinary: Denies: dysuria, hematuria, abnormal menses Skin: Denies: rash Neurological: Denies: headache, weakness, numbness <David Hurley - Last Filed: 05/22/18 04:33> ROS Other: All systems not noted in ROS Statement are negative. <Travon Trammell - Last Filed: 05/22/18 10:07> ROS Statement: Those systems with pertinent positive or pertinent negative responses have been documented in the HPI. Past Medical History Past Medical History: COPD, Pneumonia Additional Past Medical History / Comment(s): migraines, scoliosis, chronic back pain, arthritis, chronic bronchitis History of Any Multi-Drug Resistant Organisms: MRSA Date of last positivie culture/infection: 06/06/17 MDRO Source:: AXILLA Past Surgical History: No Surgical Hx Reported Additional Past Surgical History / Comment(s): dental surgery Past Anesthesia/Blood Transfusion Reactions: No Reported Reaction Past Psychological History: Anxiety, Bipolar, Depression Smoking Status: Current every day smoker Past Alcohol Use History: Occasional Past Drug Use History: Cocaine, Marijuana - Past Family History Mother Additional Family Medical History / Comment(s): Hypertension, stroke, cancer Father Family Medical History: No Reported History <David Hurley - Last Filed: 05/22/18 04:33> General Exam Limitations: no limitations General appearance: alert, in no apparent distress Head exam: Present: atraumatic, normocephalic Eye exam: Present: normal appearance Respiratory exam: Present: normal lung sounds bilaterally. Absent: respiratory distress, wheezes, rales, rhonchi, stridor Cardiovascular Exam: Present: regular rate, normal rhythm, normal heart sounds. Absent: systolic murmur, diastolic murmur, rubs, gallop GI/Abdominal exam: Present: soft. Absent: tenderness, guarding, rebound Extremities exam: Present: normal inspection, normal capillary refill Neurological exam: Present: alert Psychiatric exam: Present: depressed, suicidal ideation, other (Tearful affect) . Absent: agitated, anxious, flat affect, manic, homicidal ideation Skin exam: Present: warm, dry, intact, normal color. Absent: rash <David Hurley - Last Filed: 05/22/18 04:33> Vital Signs 05/22/18 04:09 Temperature 97.8 F Pulse Rate 94 Respiratory 20 Rate Blood Pressure 114/74 O2 Sat by Pulse 96 Oximetry Medical Decision Making <David Hurley - Last Filed: 05/22/18 04:33> <Travon Trammell - Last Filed: 05/22/18 10:07> - Medical Decision Making Patient is signed out to me by previous shift physician. Patient was evaluated EPS who recommends inpatient admission. Pending transfer to inpatient psychiatry. (Travon Trammell) - Lab Data Lab Results 05/22/18 05/22/18 Range/Units 04:18 04:18 Urine Color Yellow Urine Appearance Clear (Clear) Urine pH 5.5 (5.0-8.0) Ur Specific [place] 1.006 (1.001-1.035) Urine Protein Negative (Negative) Urine Glucose (UA) Negative (Negative) Urine Ketones Negative (Negative) Urine Blood Negative (Negative) Urine Nitrite Negative (Negative) Urine Bilirubin Negative (Negative) Urine Urobilinogen <2.0 (<2.0) mg/dL Ur Leukocyte Esterase Negative (Negative) Urine HCG, Qual Not Detected (Not Detectd) Urine Opiates Screen Not Detected (NotDetected) Ur Oxycodone Screen Not Detected (NotDetected) Urine Methadone Screen Not Detected (NotDetected) Ur Propoxyphene Screen Not Detected (NotDetected) Ur Barbiturates Screen Not Detected (NotDetected) U Tricyclic Antidepress Not Detected (NotDetected) Ur Phencyclidine Scrn Not Detected (NotDetected) Ur Amphetamines Screen Not Detected (NotDetected) U Methamphetamines Scrn Not Detected (NotDetected) U Benzodiazepines Scrn Detected H (NotDetected) Urine Cocaine Screen Detected H (NotDetected) U Marijuana (THC) Screen Not Detected (NotDetected) Disposition <David Hurley - Last Filed: 05/22/18 04:33> Decision Time: 10:07 <Travon Trammell - Last Filed: 05/22/18 10:07> Clinical Impression: Suicidal ideation Disposition: ADMITTED IP TO THIS HOSP Condition: Fair Referrals: None,Stated [Primary Care Provider] - 1-2 days
[2018-05-22 05:09] LABS: Appearance,Urine Clear (Clear); Bilirubin,Urine Negative (Negative); Blood,Urine Negative (Negative); Color,Urine Yellow; Glucose,Urine (UA) Negative (Negative); Ketones,Urine Negative (Negative); Leukocyte Esterase,Urine Negative (Negative); Nitrite,Urine Negative (Negative); PH, Urine 5.5 (5.0-8.0); Protein,Urine Negative (Negative); Specific Gravity,Urine 1.006 (1.001-1.035); Urobilinogen,Urine <2.0 mg/dL (<2.0)
[2018-05-22 05:26] LABS: Amphetamine Screen,Urine Not Detected (NotDetected); Barbiturate Screen,Urine Not Detected (NotDetected); Benzodiazepines Screen,Urine Detected (NotDetected); Cocaine Screen,Urine Detected (NotDetected); Methadone Screen, Urine Not Detected (NotDetected); Opiate Screen,Urine Not Detected (NotDetected); Oxycodone Screen, Urine Not Detected (NotDetected); Phencyclidine Screen,Urine Not Detected (NotDetected); Tricyclic Antidepressant,Urine Not Detected (NotDetected); Urn Cannabinoid Scrn Not Detected (NotDetected)
[2018-05-22 14:50] VITALS: BMI 24.3
[2018-05-22] MEDS ORDERED: MAGNESIUM HYDROXIDE 2,400 MG/10 ML CUP PO PRN (15:53)
[2018-05-22] MEDS ORDERED: MAG HYDROX/AL HYDROX/SIMETH 30 ML CUP PO PRN (15:53)
[2018-05-22] MEDS ORDERED: ZIPRASIDONE 20 MG VIAL IM PRN (15:53)
[2018-05-23] MEDS: LORazepam 1 MG TAB PO PRN ×2 (09:17→18:04)
--- NOTE | 2018-05-23 10:03 | P.HP ---
Psychiatric H&P - . History & Physical: Allergies Allergy/AdvReac Type Severity Reaction Status Date / Time Penicillins Allergy Rash/Hives Verified 05/22/18 08:12 Vital Signs Temp 97.9 F 05/23/18 06:32 Pulse 66 05/23/18 06:32 Resp 16 05/23/18 06:32 BP 120/70 05/23/18 06:32 Pulse Ox 99 05/23/18 06:32 Intake & Output 05/22/18 05/23/18 05/23/18 18:59 06:59 18:59 Weight 64.183 kg Laboratory Last Values Urine Color Yellow 05/22/18 04:18 Urine Appearance Clear (Clear) 05/22/18 04:18 Urine pH 5.5 (5.0-8.0) 05/22/18 04:18 Ur Specific [place] 1.006 (1.001-1.035) 05/22/18 04:18 Urine Protein Negative (Negative) 05/22/18 04:18 Urine Glucose (UA) Negative (Negative) 05/22/18 04:18 Urine Ketones Negative (Negative) 05/22/18 04:18 Urine Blood Negative (Negative) 05/22/18 04:18 Urine Nitrite Negative (Negative) 05/22/18 04:18 Urine Bilirubin Negative (Negative) 05/22/18 04:18 Urine Urobilinogen <2.0 mg/dL (<2.0) 05/22/18 04:18 Ur Leukocyte Esterase Negative (Negative) 05/22/18 04:18 Urine HCG, Qual Not Detected (Not Detectd) 05/22/18 04:18 Urine Opiates Screen Not Detected (NotDetected) 05/22/18 04:18 Ur Oxycodone Screen Not Detected (NotDetected) 05/22/18 04:18 Urine Methadone Screen Not Detected (NotDetected) 05/22/18 04:18 Ur Propoxyphene Screen Not Detected (NotDetected) 05/22/18 04:18 Ur Barbiturates Screen Not Detected (NotDetected) 05/22/18 04:18 U Tricyclic Antidepress Not Detected (NotDetected) 05/22/18 04:18 Ur Phencyclidine Scrn Not Detected (NotDetected) 05/22/18 04:18 Ur Amphetamines Screen Not Detected (NotDetected) 05/22/18 04:18 U Methamphetamines Scrn Not Detected (NotDetected) 05/22/18 04:18 U Benzodiazepines Scrn Detected (NotDetected) H 05/22/18 04:18 Urine Cocaine Screen Detected (NotDetected) H 05/22/18 04:18 U Marijuana (THC) Screen Not Detected (NotDetected) 05/22/18 04:18 05/23/18 09:53 IDENTIFYING DATA: This patient is a 33-year-old single female who was admitted to the mental health unit for acute suicidal ideation. HPI: The patient states that she has been considering suicide via overdose and did not feel she could keep herself safe any longer. She has been off of her psychotropic medications for over 1 year and feels she can no longer manage her mood symptoms. Her mother this past March and that was her primary support and that is a significant stressor in her life at this time. She describes having frequent crying spells she feels hopeless and helpless. She reports having no energy she excessively sleeps. Appetite is stable. She continues to have thoughts of wanting to overdose and . No report of any homicidal ideation. She is endorsing no auditory or visual hallucinations or any specific delusions. She describes more anxiety symptoms since the of her mother. She states that she would feel anxiety and often call her mother who would talk her through it. She describes episodes of having 3 days in a row with decreased sleep and increased energy having racing thoughts and being hyperverbal. She describes her mood is good at those times. These episodes seem to happen frequently. She has presented to the hospital in the hopes of restarting her medication. PAST PSYCHIATRIC HISTORY: This would be approximately her fourth inpatient psychiatric admission. She was last on this unit in August 2015 and prior to that July 2015. She has only been on Paxil and Abilify 40 and 5 mg respectively. She states these medicines work for her she is comfortable with them and does not wish to try anything different. She used to work with [facility] as an outpatient but stopped going and is no longer open. PMH: Chronic back pain, scoliosis, history of herniated disc ALLERGIES: Penicillin MEDICATIONS: None CHEMICAL DEPENDENCY HISTORY: The patient states that she is been drinking almost daily since the of her mother she reports having 2-4, 24 ounce beers daily. She reports that she has used marijuana recently, she states she ordinarily does not use cocaine and suspects it was in the marijuana. She recently took a Xanax from a friend. Her urine drug screen was positive for cocaine and benzodiazepine. 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 FAMILY PSYCHIATRIC HISTORY: Her brother committed suicide via gunshot wound, she states all of her family members have mental health symptoms FAMILY CHEMICAL DEPENDENCY HISTORY: She reports her sister is an alcoholic SOCIAL HISTORY: The patient is 33 years old she single she has an 11-year-old son who resides with his father. She is currently living with a male friend. She has no income and is unemployed other than doing odd jobs. She states she is a high school graduate no history of special education help no history of service. She has 5 brothers 2 sisters and is the youngest of her siblings. She is from [facility]. She states that her primary support was derived from her mother and no one else is very supportive at this time. Legal history includes retail fraud back child support possession of marijuana, she was incarcerated in shelter for 4 months for the retail fraud conviction. Abuse history none reported. MENTAL STATUS EXAM: The patient is a 33-year-old female appearing older than her stated age. She is thin and she is dressed in hospital attire she has no upper teeth and often protrudes her tongue. Eye contact is poor she is cooperative and directable during the session. She describes a depressed and hopeless mood with ongoing suicidal ideation. She reports no homicidal ideation intent or plan. She reports no auditory or visual hallucinations or any specific delusions and there is no observed evidence of psychosis. Thought process can be circumstantial she demonstrates no tangential thinking loose associations or flight of ideas. She does not currently appear hypomanic or manic. She demonstrates no abnormal involuntary movements other than tongue protrusion but again that may be due to missing upper teeth. She is oriented to person place and date she is able to name the days of the week backwards. She frequently changes position while seated in the chair and seems stimulus bound. Affect is dysphoric she is not tearful during the session. STRENGTHS/WEAKNESSES: Strengths: Housing, willingness to receive treatment weaknesses: Recent loss of primary support with her mother dying INTELLECTUAL FUNCTIONING: Average IMPRESSIONS: [] 1. Depression and specified rule out major depressive disorder versus bipolar 2 depression, rule out alcohol use disorder, rule out cannabis use disorder, rule out cocaine use disorder, bereavement 2. Reported history of scoliosis and subsequent back pain PLAN: The patient has been admitted to the mental health unit she is here voluntarily. We reviewed her presenting symptoms and treatment options. She wishes to restart the Paxil and Abilify and we will restart those medications. We discussed the potential benefits and side effects and her questions were answered. She will meet with internal medicine for routine history and physical exam she will meet with social work for a psychosocial assessment. We will involve family or friends as she will allow in treatment/discharge planning. We will monitor her for safety and encourage participation in the milieu. Vital signs reviewed level result reviewed.
[2018-05-23 10:07] LABS: Basophils # (A) 0.1 k/uL (0-0.2); Basophils % (A) 1 %; Eosinophils # (A) 0.2 k/uL (0-0.7); Eosinophils % (A) 3 %; HCT 41.7 % (34.0-46.0); HGB 13.9 gm/dL (11.4-16.0); Lymphocytes # (A) 1.9 k/uL (1.0-4.8); Lymphocytes % (A) 26 %; MCH 33.2 pg (25.0-35.0); MCHC 33.4 g/dL (31.0-37.0); MCV 99.3 fL (80.0-100.0); Mean Platelet Volume 7.2; Monocytes # (A) 0.4 k/uL (0-1.0); Monocytes % (A) 6 %; Neutrophils # (A) 4.4 k/uL (1.3-7.7); Neutrophils % (A) 62 %; Platelet Count 267 k/uL (150-450); RDW 13.5 % (11.5-15.5); WBC 7.2 k/uL (3.8-10.6)
[2018-05-23] MEDS ORDERED: predniSONE 20 MG TAB PO STA (10:23)
--- NOTE | 2018-05-23 10:27 | P.HPMEDMHU ---
History of Present Illness H&P Date: 05/23/18 Chief Complaint: Consult for MHU HPI The patient is a 33-year-old female with a past medical history of COPD, ongoing tobacco use, GERD, chronic lower back pain due to scoliosis and arthritis and degenerative disc disease who is currently admitted to the inpatient psychiatry unit for ongoing depression and acute suicidal ideation, apparently the patient has been having increasing thoughts of considering suicide by overdose with lisinopril, the patient reports being off her Paxil for at least 10 months, the patient presented here on her own volition, and reports increased psychosocial stressors including the recent of her mother in March, the patient reports increased difficulty coping with the grief and has reported "I'm at the end of my rope, I can't take it anymore, I don't want to be here anymore". The patient has had an increase difficulty sleeping. The patient currently denies any shortness of breath but does report ongoing wheezes and coughing at night at least 3 times per week, she continues to smoke. Reports only being on Ventolin and has never been on inhaled steroids previously. The patient denies any chest pain. She reports being on Neurontin for chronic pain in her lower back. she reports being prescribed lisinopril by her PCP but currently does not take it, as her blood pressure is normal. Review of Systems Pertinent positives per HPI, all other review of systems are otherwise negative Past Medical History Past Medical History: COPD, Pneumonia Additional Past Medical History / Comment(s): migraines, scoliosis, chronic back pain, arthritis, chronic bronchitis History of Any Multi-Drug Resistant Organisms: MRSA Date of last positivie culture/infection: 06/06/17 MDRO Source:: [facility] Past Surgical History: No Surgical Hx Reported Additional Past Surgical History / Comment(s): dental surgery Past Anesthesia/Blood Transfusion Reactions: No Reported Reaction Past Psychological History: Anxiety, Bipolar, Depression Smoking Status: Current every day smoker Past Alcohol Use History: Abuse, Daily Past Drug Use History: Cocaine, Marijuana Additional Drug Use History / Comment(s): OCC USE - Past Family History Mother Additional Family Medical History / Comment(s): Hypertension, stroke, cancer Father Family Medical History: No Reported History Medications and Allergies Home Medications Medication Instructions Recorded Confirmed Type Omeprazole 20 mg PO DAILY 01/11/18 05/22/18 History Cholecalciferol [Vitamin D3] 5,000 unit PO DAILY 05/22/18 05/22/18 History Gabapentin [Neurontin] 100 mg PO BID 05/22/18 05/22/18 History Ibuprofen [Motrin] 400 mg PO Q8HR PRN 05/22/18 05/22/18 History Lisinopril [Zestril] 2.5 mg PO DAILY 05/22/18 05/22/18 History Allergies Allergy/AdvReac Type Severity Reaction Status Date / Time Penicillins Allergy Rash/Hives Verified 05/22/18 08:12 Physical Exam Vitals: Vital Signs Temp Pulse Pulse Resp BP BP Pulse Ox 05/23/18 06:32 97.9 F 66 16 120/70 99 05/22/18 22:07 69 118/58 05/22/18 14:37 97.5 F L 91 16 127/78 05/22/18 13:49 97.9 F 77 16 105/62 95 Constitutional: No acute distress, conversant, pleasant Eyes: Anicteric sclerae, moist conjunctiva, no lid-lag, PERRLA ENMT: NC/AT,Oropharynx clear, no erythema, exudates Neck:Supple, FROM, no masses, or JVD, No carotid bruits; No thyromegaly Lungs: Diminished in the bases , mild expiratory wheezes Normal respiratory effort, no accessory muscle use Cardiovascular: Heart regular in rate and rhythm, No murmurs, gallops, or rubs no peripheral edema Abdominal: Soft Nontender, nom distended, no guarding, no rebound or rigidity, Normoactive bowel sounds No hepatomegaly, No splenomegaly, No palpable mass No abdominal wall hernia noted Skin: Normal temperature, tone, texture, turgor, No induration No subcutaneous nodules, No rash, lesions, No ulcers Extremities:No digital cyanosis No clubbing, Pedal pulses intact and symmetrical Radial pulses intact and symmetrical Normal gait and station, No calf tenderness Psychiatric: Alert and oriented to person, place and time, Appropriate affect Intact judgement Neuro: Muscles Strength 5/5 in all 4 extremities, Sensation to light touch grossly present throughout, Cranial nerves II-XII grossly intact. No focal sensory deficits Cranial Nerve Examination - Cranial Nerves Cranial Nerve II- Optic: Intact Cranial Nerve III- Oculomotor: Intact Cranial Nerve IV- Trochlear: Intact Cranial Nerve V- Trigeminal: Intact Cranial Nerve - Abducens: Intact Cranial Nerve VII- Facial: Intact Cranial Nerve VIII- Auditory: Intact Cranial Nerve IX- Glossopharyngeal: Intact Cranial Nerve X- Vagus: Intact Cranial Nerve XI- Accessory: Intact Cranial Nerve XII- Hypoglossal: Intact Thrombosis Risk Factor Assmnt - Choose All That Apply Any of the Below Risk Factors Present?: No Other Risk Factors: No Other congenital or acquired thrombophilia - If yes, enter type in comment: No Thrombosis Risk Factor Assessment Level: Very Low Risk Assessment and Plan (1) COPD with acute exacerbation Current Visit: No Status: Acute Code(s): J44.1 - CHRONIC OBSTRUCTIVE PULMONARY DISEASE W (ACUTE) EXACERBATION SNOMED Code(s): 608861782 (2) Suicidal ideation Current Visit: Yes Status: Acute Code(s): R45.851 - SUICIDAL IDEATIONS SNOMED Code(s): 1466323 (3) Bipolar affective disorder Current Visit: No Status: Acute Code(s): F31.9 - BIPOLAR DISORDER, UNSPECIFIED SNOMED Code(s): 97516808 (4) Chronic back pain Current Visit: No Status: Acute Priority: Medium Code(s): M54.9 - DORSALGIA, UNSPECIFIED SNOMED Code(s): 159399233 (5) Tobacco abuse Current Visit: No Status: Acute Code(s): Z72.0 - TOBACCO USE SNOMED Code(s ): 619480099 Plan: The patient is admitted to the mental health unit voluntarily will defer to acute inpatient psychiatry team regarding ongoing psychotropic and cognitive behavioral therapy. Medically the patient does have a mild COPD exacerbation and started on a prednisone burst 40 mg by mouth daily, with scheduled breathing treatments and Perforomist. We'll also order a chest x-ray, continue to monitor her clinical course and follow-up her COPD. I Appreciate the opportunity to involved in the ongoing care of this patient. For further questions or concerns please don't hesitate to contact the [facility] inpatient service
[2018-05-23 11:03] LABS: ALT 59 U/L (9-52); AST 34 U/L (14-36); Albumin 4.2 g/dL (3.5-5.0); Alkaline Phosphatase 37 U/L (38-126); Anion Gap 7 mmol/L; Blood Urea Nitrogen 17 mg/dL (7-17); Calcium 9.9 mg/dL (8.4-10.2); Carbon Dioxide 28 mmol/L (22-30); Chloride 105 mmol/L (98-107); Glucose 92 mg/dL (74-99); Potassium 4.2 mmol/L (3.5-5.1); Sodium 140 mmol/L (137-145); Total Bilirubin 0.5 mg/dL (0.2-1.3)
[2018-05-23] MEDS: ARIPiprazole 5 MG TAB PO SCH (12:41)
[2018-05-23] MEDS: PARoxetine 10 MG TAB PO SCH (12:41)
--- NOTE | 2018-05-23 13:51 | XR ---
EXAMINATION TYPE: XR chest 2V DATE OF EXAM: 05/23/2018 COMPARISON: NONE TECHNIQUE: PA and lateral views submitted. HISTORY: COPD FINDINGS: The lungs are clear and there is no pneumothorax, pleural effusion, or focal pneumonia. There is hy pertrophic and degenerative change of the spine. No overt failure. IMPRESSION: 1. No acute process.
[2018-05-23] MEDS: IPRATROPIUM-ALBUTEROL 3 ML NEB INHALATION SCH ×2 (16:24→21:22)
[2018-05-23] MEDS: FORMOTEROL FUMARATE 20 MCG/2 ML NEBU INHALATION SCH (21:22)
[2018-05-23] MEDS ORDERED: IPRATROPIUM-ALBUTEROL 3 ML NEB INHALATION PRN (23:23)
[2018-05-24] MEDS: ARIPiprazole 5 MG TAB PO SCH (07:49)
[2018-05-24] MEDS: predniSONE 20 MG TAB PO SCH (07:49)
[2018-05-24] MEDS: PANTOPRAZOLE 40 MG TABLET PO SCH (07:49)
[2018-05-24] MEDS: PARoxetine 10 MG TAB PO SCH (07:49)
[2018-05-24] MEDS: LORazepam 1 MG TAB PO PRN ×2 (07:50→20:18)
[2018-05-24] MEDS: FORMOTEROL FUMARATE 20 MCG/2 ML NEBU INHALATION SCH ×2 (08:48→21:49)
[2018-05-24] MEDS: IPRATROPIUM-ALBUTEROL 3 ML NEB INHALATION SCH ×3 (08:48→21:48)
--- NOTE | 2018-05-24 11:07 | P.PN ---
Progress Note - Text Interval history: The patient is found in her room she follows me to an interview room. Staff report that she continues to isolate in her room and does not attend groups yet. Apparently she does have a history of doing so with previous admissions. She states that she will likely attending groups further into the admission. She describes having poor sleep last night and feels tired. She is encouraged to get out of bed and stay active during the day so that she may have a better chance to sleep tonight. We reviewed her psychotropic medication she has no questions or concerns. Mental status exam: The patient is alert she is dressed in hospital attire. Eye contact is poor. She was directable. She had no spontaneous speech but speech was fluent and nonpressured in answering questions. She provides brief answers to questions asked. She indicates having a depressed and hopeless mood. She is reporting no thoughts of harming others. No reports of any symptoms of psychosis and there is no observed evidence of psychosis. She demonstrates no tangential thinking loose associations or flight of ideas. She does not appear hypomanic or manic. Insight and judgment limited. She remains oriented to person place and date. She is demonstrating no abnormal involuntary movements. She does seem to have exaggerated movements of her tongue but this may be due to her being edentulous on her upper jaw. Plan: The patient will continue on her current psychotropic medication. She is encouraged to participate in the milieu. Vital signs reviewed. Chest x-ray results reviewed. She is in no acute distress physically. We will continue to monitor her for safety.
[2018-05-24] MEDS: ACETAMINOPHEN TAB 325 MG TAB PO PRN (21:44)
[2018-05-25] MEDS: LORazepam 1 MG TAB PO PRN ×4 (02:00→23:57)
[2018-05-25] MEDS: predniSONE 20 MG TAB PO SCH (07:46)
[2018-05-25] MEDS: PANTOPRAZOLE 40 MG TABLET PO SCH (07:46)
[2018-05-25] MEDS: ARIPiprazole 5 MG TAB PO SCH (07:46)
[2018-05-25] MEDS: PARoxetine 10 MG TAB PO SCH (07:46)
[2018-05-25] MEDS: FORMOTEROL FUMARATE 20 MCG/2 ML NEBU INHALATION SCH ×2 (09:41→20:33)
[2018-05-25] MEDS: IPRATROPIUM-ALBUTEROL 3 ML NEB INHALATION SCH ×3 (09:42→20:33)
--- NOTE | 2018-05-25 10:15 | P.PN ---
Progress Note - Text Interval history: The patient is found in her room she follows me to an interview room. She states that she is looking forward to getting out of here because of the disturbances on the unit. She finds a male peer irritating due to his laughter. She reports having difficulty sleeping last night staff recorded she slept 5 hours. We discussed using melatonin and she is agreeable. She states that her mood is improving despite her frustrations here. She still has had no contact with anybody via phone and expects no visits. Mental status exam: The patient is alert she's cooperative pleasant she follows me to an interview room and is seated for the duration of our session. Eye contact is intermittent. Hygiene and grooming are adequate. She reports that she is not having any acute suicidal or homicidal ideation. She endorses no auditory or visual hallucinations or any specific delusions. She demonstrates no tangential thinking loose associations or flight of ideas. Insight and judgment improving. She demonstrates no verbal or physical aggressiveness. She demonstrates no abnormal repetitive movements. Plan: The patient will continue on the current psychotropic medication however we will titrate the Paxil to 20 mg daily. We will monitor her for safety and encourage her participation in the milieu. Vital signs reviewed.
[2018-05-25] MEDS: ACETAMINOPHEN TAB 325 MG TAB PO PRN ×3 (10:51→20:14)
--- NOTE | 2018-05-25 12:05 | P.PN ---
Subjective Progress Note Date: 05/25/18 Patient reports her breathing is much improved today, reports or wheezes are now gone. No acute events overnight Objective - Vital Signs Vital signs: Vital Signs Temp 97.9 F 05/25/18 02:03 Pulse 77 05/25/18 02:03 Resp 16 05/25/18 02:03 BP 120/72 05/25/18 02:03 Pulse Ox 99 05/23/18 06:32 - Exam Constitutional: No acute distress, conversant, pleasant Eyes: Anicteric sclerae, moist conjunctiva, no lid-lag, PERRLA ENMT: NC/AT,Oropharynx clear, no erythema, exudates Neck:Supple, FROM, no masses, or JVD, No carotid bruits; No thyromegaly Lungs: Clear to auscultation, Clear to percussion, Normal respiratory effort, no accessory muscle use Cardiovascular: Heart regular in rate and rhythm, No murmurs, gallops, or rubs no peripheral edema Abdominal: Soft Nontender, nom distended, no guarding, no rebound or rigidity, Normoactive bowel sounds No hepatomegaly, No splenomegaly, No palpable mass No abdominal wall hernia noted Skin: Normal temperature, tone, texture, turgor, No induration No subcutaneous nodules, No rash, lesions, No ulcers Extremities:No digital cyanosis No clubbing, Pedal pulses intact and symmetrical Radial pulses intact and symmetrical Normal gait and station, No calf tenderness Psychiatric: Alert and oriented to person, place and time, Appropriate affect Intact judgement Neuro: Muscles Strength 5/5 in all 4 extremities, Sensation to light touch grossly present throughout, Cranial nerves II-XII grossly intact. No focal sensory deficits - Labs CBC & Chem 7: 05/23/18 09:34 05/23/18 09:34 Assessment and Plan (1) COPD with acute exacerbation Narrative/Plan: * Exacerbation of COPD now resolved * Continue steroids prednisone for another 2 days, continue breathing treatments when necessary * Patient will need maintenance Symbicort or Advair on discharge Current Visit: No Status: Acute Code(s): J44.1 - CHRONIC OBSTRUCTIVE PULMONARY DISEASE W (ACUTE) EXACERBATION SNOMED Code(s): 979453240 (2) Suicidal ideation Current Visit: Yes Status: Acute Code(s): R45.851 - SUICIDAL IDEATIONS SNOMED Code(s): 3472049 (3) Bipolar affective disorder Current Visit: No Status: Acute Code(s): F31.9 - BIPOLAR DISORDER, UNSPECIFIED SNOMED Code(s): 52136781 (4) Chronic back pain Current Visit: No Status: Acute Priority: Medium Code(s): M54.9 - DORSALGIA, UNSPECIFIED SNOMED Code(s): 419306201 (5) Tobacco abuse Current Visit: No Status: Acute Code(s): Z72.0 - TOBACCO USE SNOMED Code(s ): 083921593 Plan: Patient now medically stable we'll sign off, continue prednisone until Sunday, discharge was prescription for Symbicort or Advair
[2018-05-25] MEDS ORDERED: MELATONIN 5 MG TABLET PO SCH (21:00)
[2018-05-26] MEDS: predniSONE 20 MG TAB PO SCH (08:27)
[2018-05-26] MEDS: PANTOPRAZOLE 40 MG TABLET PO SCH (08:27)
[2018-05-26] MEDS: ARIPiprazole 5 MG TAB PO SCH (08:27)
[2018-05-26] MEDS: PARoxetine 20 MG TAB PO SCH (08:27)
[2018-05-26] MEDS: FORMOTEROL FUMARATE 20 MCG/2 ML NEBU INHALATION SCH ×2 (11:25→22:07)
[2018-05-26] MEDS: IPRATROPIUM-ALBUTEROL 3 ML NEB INHALATION SCH ×2 (11:26→22:07)
--- NOTE | 2018-05-26 11:26 | P.PN ---
Progress Note - Text interval history: the patient is found in her room she follows me to an interview room. she reports her mood is improving although she had difficulty with sleep and did not like how she felt with melatonin. she did sign a notice withdrawing her involuntary status as she feels she stable and would do better at home. discussed a possible discharge in the next 1-2 days. she has no questions or concerns regarding the Paxil or Abilify. she states that she had a better day yesterday and she did socialize with peers. Mental status exam: the patient is alert she's cooperative and pleasant during our interaction she indicates having no suicidal ideation intent or plan she is reporting no auditory or visual hallucinations. she demonstrates no tangential thinking loose associations or flight of ideas she does not appear hypomanic or manic. there are no observed symptoms of psychosis. she is oriented to person place and date. she is directable during our session. She is able to demonstrate a range of affect including appropriate smiling during our interaction. Insight and judgment improving. Plan: the patient will continue on her current psychotropic medications however we will discontinue the melatonin. she is encouraged to participate in the milieu. we will monitor her for safety. Eitel signs reviewed. we will consider discharging her in the next 1-2 days.
[2018-05-26] MEDS: ACETAMINOPHEN TAB 325 MG TAB PO PRN ×3 (13:00→21:51)
[2018-05-26] MEDS: LORazepam 1 MG TAB PO PRN (21:51)
[2018-05-27 00:59] VITALS: BP 116/70; PULSE 62; RESP 12; TEMP 97.8
[2018-05-27] MEDS: PANTOPRAZOLE 40 MG TABLET PO SCH (08:48)
[2018-05-27] MEDS: predniSONE 20 MG TAB PO SCH (08:48)
[2018-05-27] MEDS: ARIPiprazole 5 MG TAB PO SCH (08:49)
[2018-05-27] MEDS: PARoxetine 20 MG TAB PO SCH (08:49)
[2018-05-27] MEDS: ACETAMINOPHEN TAB 325 MG TAB PO PRN (08:51)
[2018-05-27] MEDS: FORMOTEROL FUMARATE 20 MCG/2 ML NEBU INHALATION SCH (09:24)
[2018-05-27] MEDS: IPRATROPIUM-ALBUTEROL 3 ML NEB INHALATION SCH (09:24)
--- NOTE | 2018-05-27 09:56 | P.DS ---
Providers Date of admission: 05/22/18 13:55 Expected date of discharge: 05/27/18 Attending physician: Jared Torres Consults: 05/22/18 15:53 Consult Physician Routine Consulting Provider: Chepe Broussard Consult Reason/Comments: H & P and medical care Do you want consulting provider notified?: Yes Primary care physician: Stated None - Discharge Diagnosis(es) (1) Depression Current Visit: Yes Status: Acute Priority: High Hospital Course: Brief summary admission note: The patient's is a 33-year-old single female who was admitted to the mental health unit for acute suicidal ideation. The patient reported she had thoughts of overdosing and she couldn't keep herself safe any longer. She had been off of her prescribed psychotropic medications for one year and she felt they needed to be restarted. A significant trigger was the of her mother this past March and that was her primary support person. She reported frequent crying spells and feeling hopeless and helpless she described having no energy and was excessively sleeping. She did describe episodes of having increased energy for 3 days decreased sleep and racing thoughts as we discussed it further was difficult to tell these are true hypomanic episodes or not. She also states that she has been drinking alcohol more heavily since the of her mother which is a confounding variable. For full details please refer to my psychiatric evaluation dated 05/23/2018. Summary of hospital course: The patient was admitted to the mental health unit she signed in voluntarily. We reviewed her presenting symptoms and treatment options. In terms of medication we decided to restart her Paxil and Abilify. She had no questions or concerns regarding those medications as she had been on them previously. She was seen by internal medicine for routine history and physical exam and social work completed a psychosocial assessment. The patient selectively attended groups. She reported a progressive improvement of symptoms while here. She describes some difficulty with sleep we did try melatonin but she felt she had an adverse reaction to that medication and it was discontinued. She reports that her sleeping is now back on track and she slept well last night. She is reporting no suicidal ideation. Mental status exam: The patient is an alert female she is dressed in her own clothing hygiene grooming are adequate. She is edentulous on her top jaw. Eye contact is appropriate. Speech is fluent spontaneous nonpressured. She denies having any suicidal or homicidal ideation intent or plan. She reports no hopelessness thinking. She is reporting no auditory or visual hallucinations or any specific delusions. There is no observed evidence of psychosis. She demonstrates no tangential thinking loose associations or flight of ideas. She does not appear hypomanic or manic at this time. She is cooperative and easily directed during the session. She demonstrates no verbal or physical aggressiveness. She demonstrates no abnormal repetitive movements. Insight and judgment grossly intact. She is oriented to person place and date. Impressions 1. Depression unspecified, rule out major depressive disorder versus bipolar 2 depression, rule out alcohol use disorder rule out cannabis use disorder rule out cocaine use disorder, bereavement 2. Reported history of scoliosis with subsequent back pain Plan: The patient will be discharged mental health unit today to return home. She will continue on Paxil 20 mg daily Abilify 5 mg daily. She will follow up with [facility] for outpatient psychiatric care. She does not wish to participate in inpatient chemical dependency treatment. She states that she is able to abstain from alcohol marijuana and any other illicit drug and can address this further as an outpatient. She is instructed to abstain from any substances as they can provoke her psychiatric symptoms and elevate her safety risk. She does not feel that she needs a medication to reduce cravings for alcohol use. There is no imminent safety risk she is appropriate for transition outpatient care. She is instructed to return to the hospital with any acute safety concerns. Patient Condition at Discharge: Stable Plan - Discharge Summary New Discharge Prescriptions: New Budesonide-Formot 160-4.5 Mcg [Symbicort 160-4.5 Mcg Inhaler] 2 puff INHALATION BID #1 inhaler Albuterol Inhaler [Ventolin Hfa Inhaler] 2 puff INHALATION RT-Q4H PRN #1 inhaler PRN Reason: SOA/wheezes ARIPiprazole [Abilify] 5 mg PO DAILY #30 tab PARoxetine [Paxil] 20 mg PO DAILY #30 tab Continue Omeprazole 20 mg PO DAILY Ibuprofen [Motrin] 400 mg PO Q8HR PRN PRN Reason: Pain Gabapentin [Neurontin] 100 mg PO BID Cholecalciferol [Vitamin D3] 5,000 unit PO DAILY Discontinued Lisinopril [Zestril] 2.5 mg PO DAILY Discharge Medication List Omeprazole 20 mg PO DAILY 01/11/18 [History] Cholecalciferol [Vitamin D3] 5,000 unit PO DAILY 05/22/18 [History] Gabapentin [Neurontin] 100 mg PO BID 05/22/18 [History] Ibuprofen [Motrin] 400 mg PO Q8HR PRN 05/22/18 [History] Albuterol Inhaler [Ventolin Hfa Inhaler] 2 puff INHALATION RT-Q4H PRN #1 inhaler 05/25/18 [Rx] Budesonide-Formot 160-4.5 Mcg [Symbicort 160-4.5 Mcg Inhaler] 2 puff INHALATION BID #1 inhaler 05/25/18 [Rx] ARIPiprazole [Abilify] 5 mg PO DAILY #30 tab 05/27/18 [Rx] PARoxetine [Paxil] 20 mg PO DAILY #30 tab 05/27/18 [Rx] Follow up Appointment(s)/Referral(s): None,Stated [Primary Care Provider] - 1-2 days
== END 2018-05-27 11:06 | disposition home or self-care (01) | DRG 885 ==
LOC: EC 04:01 → 3MHU 13:55
PROVIDERS: ADMIT Psychiatry & Neurology Psychiatry; ATTEND Psychiatry & Neurology Psychiatry
DX: F31.9 Bipolar disorder, unspecified (principal); J44.1 Chronic obstructive pulmonary disease with (acute) exacerbation; R45.851 Suicidal ideations; F41.9 Anxiety disorder, unspecified; G89.29 Other chronic pain; F17.200 Nicotine dependence, unspecified, uncomplicated; M41.9 Scoliosis, unspecified; Z79.899 Other long term (current) drug therapy; Z81.1 Family history of alcohol abuse and dependence; Z82.3 Family history of stroke; Z82.49 Family history of ischemic heart disease and other diseases of the circulatory system; Z81.8 Family history of other mental and behavioral disorders; Z56.0 Unemployment, unspecified; Z63.4 Disappearance and death of family member; M54.9 Dorsalgia, unspecified; F12.11 Cannabis abuse, in remission; F14.11 Cocaine abuse, in remission; Z86.14 Personal history of Methicillin resistant Staphylococcus aureus infection; Z87.01 Personal history of pneumonia (recurrent); G43.909 Migraine, unspecified, not intractable, without status migrainosus
CPT/HCPCS: 71046; 80053; 80306; 81003; 81025; 82075; 84443; 85025; 94640; 99285

== ENCOUNTER 2018-07-24 07:10 | Emergency (ER) | payer OTHER ==
[2018-07-24 07:28] VITALS: BP 137/82; RESP 18; TEMP 98
[2018-07-24] MEDS ORDERED: ACET/COD 240MG/24MG LIQ 10 ML SYRG PO ONE (08:08)
[2018-07-24] MEDS ORDERED: IPRATROPIUM-ALBUTEROL 3 ML NEB INHALATION STA (08:08)
[2018-07-24] MEDS ORDERED: DEXAMETHASONE 4 MG TAB PO STA (08:08)
[2018-07-24] MEDS ORDERED: ACETAMINOPHEN TAB 325 MG TAB PO STA (08:08)
[2018-07-24] MEDS ORDERED: IBUPROFEN 800 MG TAB PO STA (08:08)
[2018-07-24 08:45] VITALS: PULSE 96
--- NOTE | 2018-07-24 08:57 | XR ---
EXAMINATION TYPE: XR chest 2V DATE OF EXAM: 07/24/2018 COMPARISON: 05/23/2018 TECHNIQUE: PA and lateral views submitted. HISTORY: Cough and congestion FINDINGS: The lungs are clear and there is no pneumothorax, pleural effusion, or focal pneumonia. Mild hyperi nflation. No overt failure. IMPRESSION: 1. No acute process.
--- NOTE | 2018-07-24 09:01 | ED ---
URI HPI - General Chief Complaint: Upper Respiratory Infection Stated Complaint: cough/congestion Time Seen by Provider: 07/24/18 07:37 Source: patient, RN notes reviewed, old records reviewed Mode of arrival: ambulatory Limitations: no limitations - History of Present Illness Initial Comments: This is a 33-year-old female the ER for evaluation cough congestion generalized body pain and weakness. Patient denies fevers no recent travel history or sick contacts. No recent hospitalizations, patient does have history of COPD feels that she is having exacerbation of bronchitis with cough cough causing her significant body pain and aches. Patient does smoke and continues to smoke currently. MD Complaint: cough -: hour(s) Severity: mild Severity scale (1-10): 3 Quality: aching Consistency: constant Improves With: nothing Worsens With: nothing Associated Symptoms: denies other symptoms Treatments Prior to Arrival: none - Related Data Home Medications Medication Instructions Recorded Confirmed Omeprazole 20 mg PO BID 01/11/18 07/24/18 Cholecalciferol [Vitamin D3] 5,000 unit PO DAILY 05/22/18 07/24/18 Ibuprofen [Motrin] 400 mg PO Q8HR PRN 05/22/18 07/24/18 Medroxyprogesterone Acetate 150 mg IM Q72D 07/24/18 07/24/18 [Depo-Provera] PARoxetine HCL [Paxil] 40 mg PO DAILY 07/24/18 07/24/18 Previous Rx's Medication Instructions Recorded ARIPiprazole [Abilify] 5 mg PO DAILY #30 tab 05/27/18 Albuterol Sulfate [Proair Hfa] 1 - 2 puff INHALATION Q4H PRN #1 07/24/18 inhaler Azithromycin [Zithromax Z-pack] 0 mg PO DIRECTED #1 pack 07/24/18 predniSONE 50 mg PO DAILY #5 tab 07/24/18 Allergies Allergy/AdvReac Type Severity Reaction Status Date / Time Penicillins Allergy Rash/Hives Verified 07/24/18 07:52 Review of Systems ROS Statement: Those systems with pertinent positive or pertinent negative responses have been documented in the HPI. ROS Other: All systems not noted in ROS Statement are negative. Past Medical History Past Medical History: COPD, Pneumonia Additional Past Medical History / Comment(s): migraines, scoliosis, chronic back pain, arthritis, chronic bronchitis History of Any Multi-Drug Resistant Organisms: MRSA Date of last positivie culture/infection: 06/06/17 MDRO Source:: AXILLA Past Surgical History: No Surgical Hx Reported Additional Past Surgical History / Comment(s): dental surgery Past Anesthesia/Blood Transfusion Reactions: No Reported Reaction Past Psychological History: Anxiety, Bipolar, Depression Smoking Status: Current every day smoker Past Alcohol Use History: Abuse, Daily Past Drug Use History: Cocaine, Marijuana - Past Family History Mother Additional Family Medical History / Comment(s): Hypertension, stroke, cancer Father Family Medical History: No Reported History General Exam Limitations: no limitations General appearance: alert, in no apparent distress Head exam: Present: atraumatic, normocephalic, normal inspection Eye exam: Present: normal appearance, PERRL, EOMI. Absent: scleral icterus, conjunctival injection, periorbital swelling ENT exam: Present: normal exam, mucous membranes moist Neck exam: Present: normal inspection. Absent: tenderness, meningismus, lymphadenopathy Respiratory exam: Present: wheezes, accessory muscle use, decreased breath sounds, prolonged expiratory. Absent: normal lung sounds bilaterally, respiratory distress, rales, rhonchi, stridor Cardiovascular Exam: Present: regular rate, normal rhythm, normal heart sounds. Absent: systolic murmur, diastolic murmur, rubs, gallop, clicks GI/Abdominal exam: Present: soft, normal bowel sounds. Absent: distended, tenderness, guarding, rebound, rigid Extremities exam: Present: normal inspection, full ROM, normal capillary refill. Absent: tenderness, pedal edema, joint swelling, calf tenderness Back exam: Present: normal inspection Neurological exam: Present: alert, oriented X3, CN II-XII intact Psychiatric exam: Present: normal affect, normal mood Skin exam: Present: warm, dry, intact, normal color. Absent: rash Course Vital Signs 07/24/18 07/24/18 07/24/18 07:27 08:34 08:44 Temperature 98 F Pulse Rate 87 90 96 Respiratory 18 Rate Blood Pressure 137/82 O2 Sat by Pulse 100 Oximetry - Reevaluation(s) Reevaluation #1: 07/24/18 09:08 medical record is reviewed Reevaluation #2: 07/24/18 09:08 patient feeling better Medical Decision Making - Medical Decision Making 33 female to the ER for evasive cough or congestion history of smoking history of bronchitis and COPD, acute bronchitis, no acute distress, patient's feeling better and can be discharged - Radiology Data Radiology results: report reviewed (CXR is negative for acute disease), image reviewed Disposition Clinical Impression: COPD with acute exacerbation, Bronchitis Disposition: HOME SELF-CARE Condition: Good Instructions: Acute Bronchitis (ED) Prescriptions: Albuterol Sulfate [Proair Hfa] 1 - 2 puff INHALATION Q4H PRN #1 inhaler PRN Reason: Shortness Of Breath Azithromycin [Zithromax Z-pack] 0 mg PO DIRECTED #1 pack predniSONE 50 mg PO DAILY #5 tab Is patient prescribed a controlled substance at d/c from ED?: No Referrals: [facility] [Primary Care Provider] - 1-2 days
[2018-07-24] MEDS ORDERED: AZITHROMYCIN 500 MG TAB PO STA (09:06)
== END 2018-07-24 09:26 | disposition home or self-care (01) ==
LOC: EC 07:10
DX: J44.1 Chronic obstructive pulmonary disease with (acute) exacerbation (principal); J44.0 Chronic obstructive pulmonary disease with (acute) lower respiratory infection; J20.9 Acute bronchitis, unspecified; R53.1 Weakness; F31.9 Bipolar disorder, unspecified; F41.9 Anxiety disorder, unspecified; F17.200 Nicotine dependence, unspecified, uncomplicated; Z88.0 Allergy status to penicillin; Z79.3 Long term (current) use of hormonal contraceptives; Z79.899 Other long term (current) drug therapy; Z86.14 Personal history of Methicillin resistant Staphylococcus aureus infection
CPT/HCPCS: 94640; 71046; 99284; J8540

== ENCOUNTER 2019-02-06 06:34 | Emergency (ER) | payer OTHER ==
[2019-02-06 06:42] VITALS: RESP 20; TEMP 97.8
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
[2019-02-06] MEDS ORDERED: HYDROcodone/APAP 5-325MG 1 EACH TAB PO STA (08:19)
--- NOTE | 2019-02-06 08:36 | CT ---
EXAM: CT Head Without Intravenous Contrast CLINICAL HISTORY: ITS.REASON CT Reason: pain TECHNIQUE: Axial computed tomography images of the head/brain without intravenous contrast. CTDI is 45.2 mGy and DLP is 1083.6 mGy-cm. This CT exam was performed using one or more of the following dose reduction techniques: automated exposure control, adjustment of the mA and/or kV according to patient size, and/or use of iterative reconstruction technique. COMPARISON: 12/15/2016 FINDINGS: Brain: Unremarkable. No hemorrhage. No significant white matter disease. No edema. Ventricles: Unremarkable. No ventriculomegaly. Bones/joints: Unremarkable. No acute fracture. Soft tissues: Unremarkable. Sinuses: Mucosal thickening involving the inferior maxillary sinuses. The remaining paranasal sinuses are well-aerated. Mastoid air cells: Unremarkable as visualized. No mastoid effusion. IMPRESSION: No acute intracranial process identified.
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
[2019-02-06] MEDS ORDERED: cefTRIAXone 1,000 MG VIAL (IM USE) IM STA (08:51)
[2019-02-06] MEDS ORDERED: ACET/COD 300 MG/30 MG STARTER PACK 6 TAB BTL PO STA (08:57)
[2019-02-06 09:15] VITALS: BP 120/69; PULSE 99
== END 2019-02-06 09:14 | disposition home or self-care (01) ==
LOC: EC 06:34
DX: L03.211 Cellulitis of face (principal); F17.200 Nicotine dependence, unspecified, uncomplicated; Z79.899 Other long term (current) drug therapy; Z88.0 Allergy status to penicillin; Z86.14 Personal history of Methicillin resistant Staphylococcus aureus infection; Y08.89XA Assault by other specified means, initial encounter
CPT/HCPCS: 70486; 70450; 99284; 96372; J0696

== ENCOUNTER 2019-03-11 15:45 | Inpatient (IN) | payer MEDICAID, OTHER ==
--- NOTE | 2019-03-11 16:06 | ED ---
General Adult HPI - General Chief complaint: Psychiatric Symptoms Stated complaint: Depression Time Seen by Provider: 03/11/19 15:55 Source: patient, RN notes reviewed Mode of arrival: ambulatory Limitations: no limitations - History of Present Illness Initial comments: Patient is a pleasant 33-year-old female presenting to the emergency Department with depression and suicidal thoughts. Symptoms have been worse over the past one week. Patient has thoughts of overdosing on her pills. Patient does have history of previous suicide attempt. Patient is depressed regarding of her mother just over one year ago. No homicidal thoughts. No hallucinations. No physical complaints. Occasional alcohol use, none today. No street drug use. - Related Data Home Medications Medication Instructions Recorded Confirmed Omeprazole 20 mg PO BID 01/11/18 03/11/19 Gabapentin [Neurontin] 100 mg PO TID 02/06/19 03/11/19 PARoxetine HCL [Paxil] 40 mg PO HS 03/11/19 03/11/19 Allergies Allergy/AdvReac Type Severity Reaction Status Date / Time Penicillins Allergy Rash/Hives Verified 03/11/19 16:19 Review of Systems ROS Statement: Those systems with pertinent positive or pertinent negative responses have been documented in the HPI. ROS Other: All systems not noted in ROS Statement are negative. Constitutional: Denies: fever Eyes: Denies: eye pain ENT: Denies: ear pain Respiratory: Denies: cough Cardiovascular: Denies: chest pain Endocrine: Denies: fatigue Gastrointestinal: Denies: abdominal pain Genitourinary: Denies: dysuria Musculoskeletal: Denies: back pain Skin: Denies: rash Neurological: Denies: headache Psychiatric: Reports: anxiety, depression, suicidal thoughts Past Medical History Past Medical History: COPD, Pneumonia Additional Past Medical History / Comment(s): migraines, scoliosis, chronic back pain, arthritis, chronic bronchitis History of Any Multi-Drug Resistant Organisms: MRSA Date of last positivie culture/infection: 06/06/17 MDRO Source:: AXILLA Past Surgical History: No Surgical Hx Reported Additional Past Surgical History / Comment(s): dental surgery Past Anesthesia/Blood Transfusion Reactions: No Reported Reaction Past Psychological History: Anxiety, Bipolar, Depression Smoking Status: Current every day smoker Past Alcohol Use History: Occasional Past Drug Use History: Cocaine, Marijuana - Past Family History Mother Additional Family Medical History / Comment(s): Hypertension, stroke, cancer Father Family Medical History: No Reported History General Exam Limitations: no limitations General appearance: alert, in no apparent distress Head exam: Present: atraumatic Eye exam: Present: normal appearance, PERRL ENT exam: Present: normal oropharynx Neck exam: Present: normal inspection Respiratory exam: Present: normal lung sounds bilaterally Cardiovascular Exam: Present: regular rate, normal rhythm GI/Abdominal exam: Present: soft. Absent: tenderness Extremities exam: Present: normal inspection. Absent: pedal edema, calf tenderness Neurological exam: Present: alert Psychiatric exam: Present: depressed Skin exam: Present: normal color. Absent: abrasion Course Vital Signs 03/11/19 15:50 Temperature 97.7 F Pulse Rate 108 H Respiratory 18 Rate Blood Pressure 114/81 O2 Sat by Pulse 97 Oximetry Medical Decision Making - Medical Decision Making Patient seen by mental health services, who will admit. Disposition Clinical Impression: Depression, Suicidal ideation Disposition: TRANSFER TO PSYCH HOSP/UNIT Is patient prescribed a controlled substance at d/c from ED?: No Referrals: [facility] [Primary Care Provider] - 1-2 days Decision Time: 18:34
[2019-03-11] MEDS ORDERED: MAG HYDROX/AL HYDROX/SIMETH 30 ML CUP PO PRN (20:33)
[2019-03-11] MEDS ORDERED: MAGNESIUM HYDROXIDE 2,400 MG/10 ML CUP PO PRN (20:33)
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
[2019-03-11] MEDS ORDERED: IPRATROPIUM-ALBUTEROL 3 ML NEB INHALATION PRN (20:36)
[2019-03-11] MEDS ORDERED: LORazepam 2 MG/ML INJ IM PRN (20:39)
[2019-03-11] MEDS ORDERED: NON FORMULARY DRUG (Omeprazole [Omeprazole] 20 MG) PO SCH (21:00)
[2019-03-11] MEDS: PARoxetine 20 MG TAB PO SCH (21:26)
[2019-03-11] MEDS: GABAPENTIN 100 MG CAP PO SCH (21:26)
[2019-03-11] MEDS: NICOTINE 14MG/24HR PATCH TRANSDERM SCH (21:29)
[2019-03-12] MEDS: PANTOPRAZOLE 40 MG TABLET PO SCH (08:22)
[2019-03-12] MEDS: GABAPENTIN 100 MG CAP PO SCH ×3 (08:22→20:24)
[2019-03-12] MEDS: NICOTINE 14MG/24HR PATCH TRANSDERM SCH (08:23)
[2019-03-12 09:19] LABS: Basophils # (A) 0.1 k/uL (0-0.2); Basophils % (A) 1 %; Eosinophils # (A) 0.1 k/uL (0-0.7); Eosinophils % (A) 1 %; HCT 42.7 % (34.0-46.0); HGB 14.2 gm/dL (11.4-16.0); Lymphocytes # (A) 1.9 k/uL (1.0-4.8); Lymphocytes % (A) 21 %; MCH 32.2 pg (25.0-35.0); MCHC 33.3 g/dL (31.0-37.0); MCV 96.7 fL (80.0-100.0); Mean Platelet Volume 6.9; Monocytes # (A) 0.5 k/uL (0-1.0); Monocytes % (A) 5 %; Neutrophils # (A) 6.6 k/uL (1.3-7.7); Neutrophils % (A) 70 %; Platelet Count 289 k/uL (150-450); RBC 4.41 m/uL (3.80-5.40); RDW 13.8 % (11.5-15.5); WBC 9.4 k/uL (3.8-10.6)
[2019-03-12 09:28] LABS: ALT 22 U/L (9-52); AST 19 U/L (14-36); African American GFR (CKD) >90 (>60 ml/min/1.73 sqM); Albumin 4.5 g/dL (3.5-5.0); Alkaline Phosphatase 49 U/L (38-126); Anion Gap 12 mmol/L; Blood Urea Nitrogen 13 mg/dL (7-17); Calcium 9.9 mg/dL (8.4-10.2); Carbon Dioxide 27 mmol/L (22-30); Chloride 100 mmol/L (98-107); Cholesterol 145 mg/dL (<200); Glucose 107 mg/dL (74-99); HDL Cholesterol 32 mg/dL (40-60); LDL Cholesterol,Calculated 81 mg/dL (0-99); Non-African American GFR(CKD) >90 (>60 ml/min/1.73 sqM); Potassium 3.7 mmol/L (3.5-5.1); Sodium 139 mmol/L (137-145); Total Bilirubin 0.8 mg/dL (0.2-1.3); Total Protein 7.5 g/dL (6.3-8.2); Triglycerides 161 mg/dL (<150)
--- NOTE | 2019-03-12 10:13 | P.HP ---
Psychiatric H&P - . History & Physical: Allergies Allergy/AdvReac Type Severity Reaction Status Date / Time Penicillins Allergy Rash/Hives Verified 03/11/19 16:19 Vital Signs Temp 98 F 03/12/19 06:43 Pulse 63 03/12/19 06:43 Resp 16 03/12/19 06:43 BP 97/56 03/12/19 06:43 Pulse Ox 96 03/11/19 20:28 Intake & Output 03/11/19 03/12/19 03/12/19 18:59 06:59 18:59 Weight 68.039 kg Laboratory Last Values WBC 9.4 k/uL (3.8-10.6) 03/12/19 08:58 RBC 4.41 m/uL (3.80-5.40) 03/12/19 08:58 Hgb 14.2 gm/dL (11.4-16.0) 03/12/19 08:58 Hct 42.7 % (34.0-46.0) 03/12/19 08:58 MCV 96.7 fL (80.0-100.0) 03/12/19 08:58 MCH 32.2 pg (25.0-35.0) 03/12/19 08:58 MCHC 33.3 g/dL (31.0-37.0) 03/12/19 08:58 RDW 13.8 % (11.5-15.5) 03/12/19 08:58 Plt Count 289 k/uL (150-450) 03/12/19 08:58 Neutrophils % 70 % 03/12/19 08:58 Lymphocytes % 21 % 03/12/19 08:58 Monocytes % 5 % 03/12/19 08:58 Eosinophils % 1 % 03/12/19 08:58 Basophils % 1 % 03/12/19 08:58 Neutrophils # 6.6 k/uL (1.3-7.7) 03/12/19 08:58 Lymphocytes # 1.9 k/uL (1.0-4.8) 03/12/19 08:58 Monocytes # 0.5 k/uL (0-1.0) 03/12/19 08:58 Eosinophils # 0.1 k/uL (0-0.7) 03/12/19 08:58 Basophils # 0.1 k/uL (0-0.2) 03/12/19 08:58 Sodium 139 mmol/L (137-145) 03/12/19 08:58 Potassium 3.7 mmol/L (3.5-5.1) 03/12/19 08:58 Chloride 100 mmol/L (98-107) 03/12/19 08:58 Carbon Dioxide 27 mmol/L (22-30) 03/12/19 08:58 Anion Gap 12 mmol/L 03/12/19 08:58 BUN 13 mg/dL (7-17) 03/12/19 08:58 Creatinine 0.70 mg/dL (0.52-1.04) 03/12/19 08:58 Est GFR (CKD-EPI)AfAm >90 (>60 ml/min/1.73 sqM) 03/12/19 08:58 Est GFR (CKD-EPI)NonAf >90 (>60 ml/min/1.73 sqM) 03/12/19 08:58 Glucose 107 mg/dL (74-99) H 03/12/19 08:58 Calcium 9.9 mg/dL (8.4-10.2) 03/12/19 08:58 Total Bilirubin 0.8 mg/dL (0.2-1.3) 03/12/19 08:58 AST 19 U/L (14-36) 03/12/19 08:58 ALT 22 U/L (9-52) 03/12/19 08:58 Alkaline Phosphatase 49 U/L (38-126) 03/12/19 08:58 Total Protein 7.5 g/dL (6.3-8.2) 03/12/19 08:58 Albumin 4.5 g/dL (3.5-5.0) 03/12/19 08:58 Triglycerides 161 mg/dL (<150) H 03/12/19 08:58 Cholesterol 145 mg/dL (<200) 03/12/19 08:58 LDL Cholesterol, Calc 81 mg/dL (0-99) 03/12/19 08:58 HDL Cholesterol 32 mg/dL (40-60) L 03/12/19 08:58 03/12/19 09:55 IDENTIFYING DATA: This patient is a 33-year-old single female who was admitted to the mental health unit for acute suicidal ideation. HPI: The patient presented last evening stating she was considering suicide via overdose and felt she could not keep herself safe. This is the one-year anniver kavya of her mother's . She states that she feels overwhelmed. She indicates that she had been sleeping in bed for 3 days straight energies been poor and she hasn't eaten in 3 days. She has not been attending to her activities of daily living. She felt hopeless. She states that she was going to overdose with her medications and she had them in her hand. She decided that she would come for help instead. She finds herself tearful on a regular basis. She feels that her anxiety is heightened due to her depressed mood. Anxiety seems to be worse in crowds. She is reporting no panic attacks. She endorses frequent mood fluctuation. She states that she definitely has depressive episodes as we reviewed those criteria. When not depressed she will have episodes where she feels happy and energetic but it is not clear that these are hypomanic or manic in nature from her description. She indicates that she has not been taking the Paxil regularly over the last month and she discontinued the Abilify 2 months ago. She states there is been a definite decompensation since discontinuing the Abilify and not strictly adhering to the Paxil. PAST PSYCHIATRIC HISTORY: The patient has had 5 total psychiatric admissions she has had 4 since July 2015. She was last on this mental health unit under my care in May 2018. She has had suicidal ideation several times over the years. No actual attempts. She has only been treated with Paxil and Abilify. She continues to feel that those medicines help her when she is compliant and she does not wish to consider alternatives. She has not been working with outpatient mental healthcare. PMH: History of chronic back pain, scoliosis, herniated disc ALLERGIES: Penicillin MEDICATIONS: Refer to MAR CHEMICAL DEPENDENCY HISTORY: She reports consuming 24-48 ounces of beer twice a week she uses marijuana frequently she reports no recent use of cocaine or any other illicit drugs she was in rehab once as a teenager for use of marijuana. FAMILY PSYCHIATRIC HISTORY: Brother committed suicide, she states that several family members have mental health issues FAMILY CHEMICAL DEPENDENCY HISTORY: Sister is known to have alcohol use disorder SOCIAL HISTORY: The patient is 33 years old she single she has a 12-year-old son whom she has some contact with he resides with his father. The patient states that she is technically homeless and has been staying with friends. She had moved to [place] with her sister temporarily and had a job states she can't get along with her so she moved back to this area. She is currently unemployed with no income. She is a high school graduate no history of special education help no history of service. She has 5 brothers 2 sisters and is the youngest of her siblings. She is originally from to school at [employer]. Again she states that her primary support was dry from her mother. Legal history includes retail fraud neck child-support possession of marijuana. She was incarcerated in intermediate for 4 months for the retail fraud conviction. No abuse history reported. MENTAL STATUS EXAM: He patient is a 33-year-old female appearing older than her stated age. She is dressed in hospital attire she has no upper teeth. Eye contact is appropriate speech is fluent spontaneous nonpressured. She demonstrates no tangential thinking loose associations or flight of ideas. She describes a depressed mood with hopelessness thinking and suicidal thoughts. She reports no homicidal ideation intent or plan. She endorses no auditory or visual hallucinations or any specific delusions and there is no observed evidence of psychosis hypomania or bradley. She demonstrates no involuntary positive movements. She is oriented to person place and date she is able to name the days of the week backwards. She demonstrates no verbal or physical aggressiveness. Affect is constricted. STRENGTHS/WEAKNESSES: Strengths: Willingness to receive treatment, weaknesses: Homelessness no income lack of primary support INTELLECTUAL FUNCTIONING: Average IMPRESSIONS: [] 1. Depression unspecified rule out major depressive disorder versus bipolar 2 depression, rule out alcohol use disorder cannabis use disorder PLAN: The patient has been admitted to the mental health unit voluntarily we reviewed her presenting symptoms and treatment options. She wishes to remain on the Paxil 40 mg at bedtime and would like to have the Abilify 5 mg restarted. We discussed that there are alternative sees medications but she feels that they are effective when she is compliant. She'll be seen by internal medicine for routine history and physical exam. Social work will meet with the patient to complete a psychosocial assessment and for discharge planning purposes. She is encouraged to participate in the milieu we will monitor her for safety. We will involve any friends or family in her treatment and discharge planning as she will allow.
[2019-03-12] MEDS: ARIPiprazole 5 MG TAB PO SCH (10:32)
[2019-03-12 15:05] LABS: Appearance,Urine Clear (Clear); Bilirubin,Urine Negative (Negative); Blood,Urine Negative (Negative); Color,Urine Yellow; Glucose,Urine (UA) Negative (Negative); Ketones,Urine Negative (Negative); Leukocyte Esterase,Urine Trace (Negative); Mucus,Urine Occasional /hpf; Nitrite,Urine Negative (Negative); Protein,Urine Negative (Negative); RBC,Urine 1 /hpf (0-5); Specific Gravity,Urine 1.014 (1.001-1.035); Squamous Epithelial Cell,Urine 1 /hpf (0-4); WBC,Urine 3 /hpf (0-5)
[2019-03-12] MEDS: PARoxetine 20 MG TAB PO SCH ×2 (20:24→20:25)
[2019-03-12 20:50] LABS: Urine Alcohol Negative (Negative); Urine Barbiturate Negative (Negative); Urine Cocaine Positive (Negative); Urine Methadone Negative (Negative); Urine Opiates Negative (Negative); Urine Phencyclidine Negative (Negative)
[2019-03-13] MEDS: GABAPENTIN 100 MG CAP PO SCH ×3 (08:19→20:53)
[2019-03-13] MEDS: ACETAMINOPHEN TAB 325 MG TAB PO PRN ×2 (08:19→13:45)
[2019-03-13] MEDS: ARIPiprazole 5 MG TAB PO SCH (08:19)
[2019-03-13] MEDS: PANTOPRAZOLE 40 MG TABLET PO SCH (08:19)
--- NOTE | 2019-03-13 11:10 | P.PN ---
Progress Note - Text Interval history: The patient's found in her room she refuses to meet with me. She indicates she is having headache pain and is not going to get out of her room. Staff report that she has not been attending groups. She did go down for breakfast. She has been compliant with medication. She verbalized that she has no questions or concerns regarding her medication. In reviewing labs her urine drug screen did show that she was positive for cocaine at the time of admission. Mental status exam: The patient is lying in bed she makes no eye contact to get up and meet for an interview. She answers very few questions. She has a mildly irritable affect. She is resting in bed without any signs of acute distress. She demonstrates no physical aggressiveness. She demonstrates no involuntary repetitive movements. Insight and judgment impaired. Plan: The patient will continue on her current psychotropic medication. We will monitor for safety. She is encouraged to participate in the milieu. Vital signs reviewed. She requires continued psychiatric hospitalization until clinically stabilized.
[2019-03-13] MEDS: PARoxetine 20 MG TAB PO SCH (19:56)
[2019-03-14 06:51] VITALS: RESP 16
[2019-03-14] MEDS: ACETAMINOPHEN TAB 325 MG TAB PO PRN ×2 (07:47→16:08)
[2019-03-14] MEDS: PANTOPRAZOLE 40 MG TABLET PO SCH (07:47)
--- NOTE | 2019-03-14 08:48 | P.PN ---
Progress Note - Text Interval history: The patient's found in the front office representative she follows me to an interview room. She states that her cephalgia is much improved. She indicates she slept to about 1:00. She attended 2 groups. She has concerns about the Abilify. She states it typically works for her however she forgot how much it stimulates her appetite. She states that she cannot remain on it as she does not want to gain weight. We discussed alternatives to the Abilify. We selected Lamictal as an option. We discussed potential benefits and side effects of Lamictal including skin rash and her questions were answered. He plans on attending groups today. She states that she still has depressive feelings with hopeless thoughts but feels safe in the hospital. Mental status exam: The patient is alert she is dressed in hospital gowns. She is edentulous. Hygiene grooming adequate. She is pleasant cooperative. She is easily directable during the session. She reports a depressed mood with hopeless thoughts. Again she feels safe here in the hospital in terms of suicidal ideation. No homicidal ideation intent or plan. She reports no au ditory or visual hallucinations or specific delusions. There is no observed evidence of psychosis. Thought process is circumstantial at times she is verbose. It appears unintentionally her voice becomes loud at times during the session. Insight and judgment limited. She demonstrates no verbal or physical aggressiveness. She demonstrates no involuntary movements. She remains oriented to person place and date. Impression/plan: Continued symptoms of depression rule out bipolar disorder, we will discontinue Abilify we will initiate Lamictal 25 mg daily. We will plan to titrate the Lamictal further while she is hospitalized. Continue Paxil as written. She is encouraged to attend all groups today. We will monitor her for safety. Vital signs reviewed. She requires continued psychiatric hospitalization at this time.
[2019-03-14] MEDS: lamoTRIgine 25 MG TAB PO SCH (09:04)
[2019-03-14] MEDS: GABAPENTIN 100 MG CAP PO SCH ×3 (09:04→20:45)
[2019-03-14] MEDS: LORazepam 0.5 MG TAB PO PRN ×2 (14:44→21:15)
[2019-03-14] MEDS: PARoxetine 20 MG TAB PO SCH (20:45)
[2019-03-15] MEDS: GABAPENTIN 100 MG CAP PO SCH ×3 (08:44→21:09)
[2019-03-15] MEDS: PANTOPRAZOLE 40 MG TABLET PO SCH (08:44)
[2019-03-15] MEDS: lamoTRIgine 25 MG TAB PO SCH (08:44)
[2019-03-15] MEDS: ACETAMINOPHEN TAB 325 MG TAB PO PRN ×3 (10:18→21:11)
[2019-03-15] MEDS: LORazepam 0.5 MG TAB PO PRN ×2 (10:21→21:48)
--- NOTE | 2019-03-15 17:49 | P.PN ---
Progress Note - Text Progress Note Date: 03/15/19 Interval history: Patient is seen in cross coverage today. She reports that she is feeling better mood patterson. She was admitted with depression. She does not voice any adverse psychotropic medication side effects. She feels like her medication changes been doing well. Mental status exam: She is alert and cooperative with the interview. Her speech is fluent, not rapid or pressured. She denies any thoughts of harm to self or others during the course of the hospitalization. There is no active evidence of psychosis. She does not show any agitation. Plan: Patient will be maintained on current psychotropic medication regimen. Continue to monitor any medication side effects and monitor for ongoing response to treatment.
[2019-03-15] MEDS: PARoxetine 20 MG TAB PO SCH (21:09)
[2019-03-16] MEDS: GABAPENTIN 100 MG CAP PO SCH ×3 (08:28→21:07)
[2019-03-16] MEDS: lamoTRIgine 25 MG TAB PO SCH (08:28)
[2019-03-16] MEDS: PANTOPRAZOLE 40 MG TABLET PO SCH (08:28)
[2019-03-16] MEDS: ACETAMINOPHEN TAB 325 MG TAB PO PRN ×3 (08:29→21:07)
[2019-03-16] MEDS: LORazepam 0.5 MG TAB PO PRN ×2 (11:20→21:09)
--- NOTE | 2019-03-16 12:32 | P.PN ---
Progress Note - Text Progress Note Date: 03/16/19 Interval history: Patient is seen in cross coverage again today. She relates she slept well last night and she is eating well. She feels like she is doing well with her medication change. She does feel like she'll be ready for discharge soon. Mental status exam: She is alert and cooperative with the interview. Her speech is fluent, not rapid or pressured. Thought processes organized. Her mood she describes is good. She denies any thoughts of harm to self or others during her time on the unit. She does not show any active evidence of psychosis. She does not show any agitation. Plan: We'll maintain current psychotropic medication regimen. Continue to monitor for any medication side effects and monitor her ongoing response to treatment.
[2019-03-16] MEDS: PARoxetine 20 MG TAB PO SCH (21:06)
[2019-03-17] MEDS: PANTOPRAZOLE 40 MG TABLET PO SCH (08:34)
[2019-03-17] MEDS: GABAPENTIN 100 MG CAP PO SCH ×3 (08:34→20:54)
[2019-03-17] MEDS: ACETAMINOPHEN TAB 325 MG TAB PO PRN ×3 (08:35→19:02)
[2019-03-17] MEDS: lamoTRIgine 25 MG TAB PO SCH ×2 (08:35→20:52)
[2019-03-17] MEDS: LORazepam 0.5 MG TAB PO PRN (13:28)
--- NOTE | 2019-03-17 15:01 | PN ---
PROGRESS NOTE DATE OF SERVICE: 03/17/2019 CHIEF COMPLAINT: The patient was depressed. She had suicide thoughts impart triggered by grief issues. INTERVAL HISTORY: Patient has been doing fair. She had a quiet evening last night. She slept fair today, she has been up. she comes out in the day area. She has not been attending groups. She says that overall her mood is improved. She acknowledges of having unstable mood. She attributes most of that to times where she does not take medications consistently. She was hospitalized in the fall of 2017 and said at that time she had been off medications for an extended period of time. She says currently she had stopped taking medications for a short period prior to coming into the hospital, though otherwise had been taking her medications consistently through the summer. She says that she has been on Paxil for a long period of time and feels that it has been helpful for her in the past. She tolerates psychotropic medications. MENTAL STATUS: Patient gave fairly good eye contact, she was restless. She answered questions with direct responses. At times she rambled. She had some pressured speech, though not to a significant degree. Her affect was somewhat intense, her mood not clearly down or depressed. She did not appear to be significantly distressed in any way. There was no indication of thought disorder. The patient stated that she has not had been hearing voices. ASSESSMENT: I will continue the current diagnosis and treatment plan. I will increase Lamictal to 25 mg twice a day. I reviewed medication issues with the patient. Patient is hopeful to be discharged soon. Will review discharge planning issues. If she remains stable, we could consider discharging her as early as tomorrow. MMMEENAKSHI / HARLEENN: [id number] /
[2019-03-17] MEDS: PARoxetine 20 MG TAB PO SCH (20:53)
[2019-03-18 06:37] VITALS: BP 107/58; PULSE 51; TEMP 98.1
[2019-03-18] MEDS: lamoTRIgine 25 MG TAB PO SCH (08:42)
[2019-03-18] MEDS: GABAPENTIN 100 MG CAP PO SCH (08:42)
[2019-03-18] MEDS: PANTOPRAZOLE 40 MG TABLET PO SCH (08:42)
[2019-03-18] MEDS: ACETAMINOPHEN TAB 325 MG TAB PO PRN (08:44)
--- NOTE | 2019-03-18 09:44 | DS ---
DISCHARGE SUMMARY DATE OF SERVICE: 03/18/2019. DATE OF ADMISSION: 03/11/2019. DATE OF DISCHARGE: 03/18/2019 ADMISSION AND DISCHARGE DIAGNOSES: 1. Depression, rule out major depression. 2. Substance use disorder. 3. Chronic obstructive pulmonary disease. 4. Gastroesophageal reflux disease. HISTORY OF PRESENTING ILLNESS: The patient is a 33-year-old female. She lives in her own apartment and has a housemate. She presented to the ED with depression and suicide thoughts. She was considering overdose. She said a primary stress issue for her was the one year anniversary of her mother's passing. She felt overwhelmed. She was sleeping excessively and said she spent the last 3 days in bed. She had not been eating or tending to basic care. She was having crying spells. She had high anxiety. She notes a long history of depression and indicated she is aware the depression has been worse for her when she goes off her medications. She had 5 previous psychiatric hospitalizations with 4 hospitalizations since July 2015. She was on this unit in May 2018 for depression with suicidal thinking. She acknowledged that at that time she had been off medications for an extended period of time. Current medications included Paxil 40 mg a day and Abilify 5 mg a day. She indicated that she drinks 24 to 48 ounces of beer twice a week. Uses marijuana frequently and has had past use of cocaine. It is noted that on urine drug screen, she was positive for cocaine. She was admitted for further evaluation. PAST MEDICAL HISTORY AND PHYSICAL EXAM: As per medical consultation of Dr. Gooden. MENTAL STATUS EXAM: The patient had appropriate eye contact and speech. Her thought process was clear. Mood was depressed. She had hopeless feelings and suicide thoughts. There was no indication of thought disorder. She was oriented and alert. COURSE OF HOSPITALIZATION: The patient was admitted for comprehensive medical psychiatric and psychosocial evaluation. We engaged the patient in individual and group therapeutic activities. On admission, the patient was continued on Paxil 40 mg a day and Abilify 5 mg a day. The patient noted that in the first couple days she began seeing improvement in her mood. She attended groups sporadically. She requested a change in medication to be able to get off Abilify because she said it caused her appetite to go very high as such she was discontinued from Abilify and started on Lamictal 25 mg a day. The Lamictal was titrated up to 25 mg twice a day. She was appropriate in her interactions with staff and peers. She was cooperative. She said she did get some benefit out of groups though she only attended groups to a limited extent. She was able to focus on discharge planning. She noted that she and her housemate had just moved into a new house. 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 She said she had plans for getting an identification card so that she could apply for more stable job situations such as in restaurant. For the most part suicide thinking had abated. Her mood improved. She was able to address some of her substance use issues. She engaged in discharge planning. CONDITION AT DISCHARGE: Patient was stable. Mood was improved. She tolerated her psychotropic medications. She voiced no thoughts of harm to self or others. RECOMMENDATIONS AND FOLLOWUP: The patient is discharged to home. Discharge medications include: 1. Paxil 40 mg a day. 2. Lamictal 25 mg twice a day. She has followup with [facility] 03/21/2019 at 12:30 p.m. for intake. She was referred to [facility] for primary care followup. MMODL / IJN: [id number] /
== END 2019-03-18 09:37 | disposition home or self-care (01) | DRG 881 ==
LOC: EC 15:45 → 3MHU 18:40
PROVIDERS: ADMIT Psychiatry & Neurology Psychiatry; ATTEND Psychiatry & Neurology Psychiatry
DX: F32.9 Major depressive disorder, single episode, unspecified (principal); R45.851 Suicidal ideations; M41.9 Scoliosis, unspecified; F12.90 Cannabis use, unspecified, uncomplicated; F17.200 Nicotine dependence, unspecified, uncomplicated; F41.9 Anxiety disorder, unspecified; J44.9 Chronic obstructive pulmonary disease, unspecified; K21.9 Gastro-esophageal reflux disease without esophagitis; G43.909 Migraine, unspecified, not intractable, without status migrainosus; G89.29 Other chronic pain; M54.9 Dorsalgia, unspecified; M19.90 Unspecified osteoarthritis, unspecified site; R51 Headache; Z56.0 Unemployment, unspecified; Z59.0 Homelessness; Z79.899 Other long term (current) drug therapy; Z91.5 Personal history of self-harm; Z88.0 Allergy status to penicillin; Z87.01 Personal history of pneumonia (recurrent); Z82.3 Family history of stroke; Z82.49 Family history of ischemic heart disease and other diseases of the circulatory system; Z85.9 Personal history of malignant neoplasm, unspecified
CPT/HCPCS: 80053; 80061; 80306; 81001; 81025; 82075; 83036; 84443; 85025; 99284

== ENCOUNTER 2020-04-28 14:37 | Emergency (ER) | payer OTHER ==
[2020-04-28 14:52] VITALS: BP 146/98; PULSE 115; RESP 18; TEMP 98
[2020-04-28] MEDS ORDERED: FLUORESCEIN STRIPS 1 MG STRIP LEFT EYE ONE (15:08)
[2020-04-28] MEDS ORDERED: PROPARACAINE 0.5% OPHTH DROPS 15 ML BTL LEFT EYE STA (15:08)
--- NOTE | 2020-04-28 15:25 | ED ---
Eye Problem HPI - General Chief complaint: Eye Problems Stated complaint: Eye Problem Time Seen by Provider: 04/28/20 15:08 Source: patient Mode of arrival: wheelchair Limitations: no limitations - History of Present Illness Initial comments: Patient is a 35-year-old female presenting to the emergency Department with complaints of a feeling like something is in her left eye. 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 Patient denies any drug use today but patient is twitching all around the room, making weird comments, unable to sit still. She denies any injuries or trauma to her eye. She states she can see fine. She denies any fevers. She has no further complaints. - Related Data Home Medications Medication Instructions Recorded Confirmed Omeprazole 20 mg PO BID 01/11/18 03/11/19 Previous Rx's Medication Instructions Recorded Gabapentin [Neurontin] 100 mg PO TID #90 cap 03/18/19 PARoxetine HCL [Paxil] 40 mg PO HS #30 tablet 03/18/19 lamoTRIgine [LaMICtal] 25 mg PO BID #60 tab 03/18/19 Polymyxin B-Trimeth Sulf Ophth 1 drops LEFT EYE Q4H 5 Days #1 04/28/20 [Polytrim Opthalmic] bottle Allergies Allergy/AdvReac Type Severity Reaction Status Date / Time Penicillins Allergy Rash/Hives Verified 03/11/19 16:19 Review of Systems ROS Statement: Those systems with pertinent positive or pertinent negative responses have been documented in the HPI. ROS Other: All systems not noted in ROS Statement are negative. Past Medical History Past Medical History: COPD, Pneumonia Additional Past Medical History / Comment(s): migraines, scoliosis, chronic back pain, arthritis, chronic bronchitis History of Any Multi-Drug Resistant Organisms: MRSA Date of last positivie culture/infection: 06/06/17 MDRO Source:: AXILLA Past Surgical History: No Surgical Hx Reported Additional Past Surgical History / Comment(s): dental surgery Past Anesthesia/Blood Transfusion Reactions: No Reported Reaction Past Psychological History: Anxiety, Bipolar, Depression Past Alcohol Use History: Occasional Past Drug Use History: Cocaine, Marijuana - Past Family History Mother Additional Family Medical History / Comment(s): Hypertension, stroke, cancer Father Family Medical History: No Reported History General Exam - General Exam Comments Initial Comments: GENERAL: Patient appears to be under the influence of drugs, unable to sit still, making weird comments, making many hand gestures. HEAD: Atraumatic, normocephalic. EYES: Pupils equal round and reactive to light, extraocular movements intact, sclera anicteric, conjunctiva are normal. Eyelids were unremarkable. I do not see a foreign body. Patient was unable to sit still for a fluorescein stain exam ENT: Nares patent, oropharynx clear without exudates. Moist mucous membranes. NECK: Normal range of motion, supple without lymphadenopathy or JVD. LUNGS: Unlabored respirations. Breath sounds clear to auscultation bilaterally and equal. No wheezes rales or rhonchi. HEART: Regular rate and rhythm without murmurs, rubs or gallops. ABDOMEN: Soft, nontender, normoactive bowel sounds. No guarding, no rebound. No masses appreciated. : Deferred MUSCULOSKELETAL: Normal extremities with adequate strength and normal range of motion, no pitting or edema. No clubbing or cyanosis. NEUROLOGICAL: Patient is alert and oriented x 3. Normal speech, normal gait. PSYCH: Appears to be under the influence of drugs. SKIN: Warm, Dry, normal turgor, no rashes or lesions noted. Limitations: no limitations Course Vital Signs 04/28/20 14:48 Temperature 98.0 F Pulse Rate 115 H Respiratory 18 Rate Blood Pressure 146/98 O2 Sat by Pulse 99 Oximetry Medical Decision Making - Medical Decision Making Patient is a 35-year-old female presenting with a feeling of a foreign body in her left eye since working in a house today. Patient seemed to be under the influence of some sort of drugs even though she denies drug use. She is unable to sit still for a fluorescein stain exam on her left eye. I do not visualize see any foreign bodies in her eye. I will start patient on antibiotic drops to cover for possible corneal abrasion. She states her vision is fine. Patient is agreement with this plan of care. She is stable for discharge. She is follow- up with her PCP or eye doctor if symptoms persist. Disposition Clinical Impression: Sensation of foreign body in eye Disposition: HOME SELF-CARE Condition: Stable Instructions (If sedation given, give patient instructions): Corneal Abrasion (ED) Additional Instructions: Please return to the Emergency Department if symptoms worsen or any other concerns. Use eyedrops as prescribed. Follow-up with PCP or eye doctor symptoms persist. Prescriptions: Polymyxin B-Trimeth Sulf Ophth [Polytrim Opthalmic] 1 drops LEFT EYE Q4H 5 Days #1 bottle Is patient prescribed a controlled substance at d/c from ED?: No Referrals: [facility] [Primary Care Provider] - 1-2 days
== END 2020-04-28 15:35 | disposition home or self-care (01) ==
LOC: EC 14:37
DX: H57.9 Unspecified disorder of eye and adnexa (principal); Z79.899 Other long term (current) drug therapy; Z88.0 Allergy status to penicillin
CPT/HCPCS: 99283

== ENCOUNTER 2020-06-13 04:01 | Inpatient (IN) | payer MEDICAID, OTHER ==
[2020-06-13 04:56] LABS: Amphetamine Screen,Urine Not Detected (NotDetected); Barbiturate Screen,Urine Not Detected (NotDetected); Benzodiazepines Screen,Urine Not Detected (NotDetected); Cocaine Screen,Urine Detected (NotDetected); Methadone Screen, Urine Not Detected (NotDetected); Opiate Screen,Urine Not Detected (NotDetected); Oxycodone Screen, Urine Not Detected (NotDetected); Phencyclidine Screen,Urine Not Detected (NotDetected); Tricyclic Antidepressant,Urine Not Detected (NotDetected); Urn Cannabinoid Scrn Detected (NotDetected)
--- NOTE | 2020-06-13 08:00 | ED ---
Psych HPI - General Source: patient, police Mode of arrival: ambulatory - History of Present Illness MD Complaint: suicidal ideation, feels depressed -: week(s) Associated Psychiatric Symptoms: depression Quality: getting worse Improves With: none Worsens With: alcohol <David Hurley - Last Filed: 06/13/20 07:58> <Catalino Wells - Last Filed: 06/13/20 16:08> - General Chief Complaint: Psychiatric Symptoms Stated Complaint: petition Time Seen by Provider: 06/13/20 04:12 - Related Data Home Medications Medication Instructions Recorded Confirmed Omeprazole 20 mg PO BID 01/11/18 06/13/20 Previous Rx's Medication Instructions Recorded PARoxetine HCL [Paxil] 40 mg PO HS #30 tablet 03/18/19 Allergies Allergy/AdvReac Type Severity Reaction Status Date / Time Penicillins Allergy Rash/Hives Verified 06/13/20 11:47 Review of Systems ROS Other: All systems not noted in ROS Statement are negative. Constitutional: Denies: fever, weakness Respiratory: Denies: cough, dyspnea Cardiovascular: Denies: chest pain, edema, syncope Gastrointestinal: Denies: abdominal pain, vomiting, diarrhea Genitourinary: Denies: dysuria, hematuria Musculoskeletal: Denies: back pain Skin: Denies: rash Neurological: Denies: headache, weakness Psychiatric: Reports: depression, suicidal thoughts. Denies: auditory hallucinations, visual hallucinations, homicidal thoughts <David Hurley - Last Filed: 06/13/20 07:58> ROS Other: All systems not noted in ROS Statement are negative. <Catalino Wells - Last Filed: 06/13/20 16:08> ROS Statement: Those systems with pertinent positive or pertinent negative responses have been documented in the HPI. Past Medical History Past Medical History: COPD, Pneumonia Additional Past Medical History / Comment(s): migraines, scoliosis, chronic back pain, arthritis, chronic bronchitis History of Any Multi-Drug Resistant Organisms: MRSA Date of last positivie culture/infection: 06/06/17 MDRO Source:: AXILLA Past Surgical History: No Surgical Hx Reported Additional Past Surgical History / Comment(s): dental surgery Past Anesthesia/Blood Transfusion Reactions: No Reported Reaction Past Psychological History: Anxiety, Bipolar, Depression Smoking Status: Current every day smoker Past Alcohol Use History: Occasional Past Drug Use History: Cocaine, Marijuana - Past Family History Mother Additional Family Medical History / Comment(s): Hypertension, stroke, cancer Father Family Medical History: No Reported History <XaviDavid - Last Filed: 06/13/20 07:58> General Exam Limitations: no limitations General appearance: alert, in no apparent distress Head exam: Present: atraumatic, normocephalic Eye exam: Present: normal appearance. Absent: scleral icterus, conjunctival injection Respiratory exam: Present: normal lung sounds bilaterally. Absent: respiratory distress, wheezes, rales, rhonchi, stridor Cardiovascular Exam: Present: regular rate, normal rhythm, normal heart sounds. Absent: systolic murmur, diastolic murmur, rubs, gallop GI/Abdominal exam: Present: soft. Absent: distended, tenderness, guarding, rebound, rigid, mass Extremities exam: Present: normal inspection, normal capillary refill. Absent: pedal edema, calf tenderness Back exam: Absent: CVA tenderness (R), CVA tenderness (L) Neurological exam: Present: alert Psychiatric exam: Present: depressed, suicidal ideation. Absent: anxious, flat affect, manic, homicidal ideation Skin exam: Present: warm, dry, intact, normal color. Absent: rash <David Hurley - Last Filed: 06/13/20 07:58> Course <Catalino Wells - Last Filed: 06/13/20 16:08> Vital Signs 06/13/20 06/13/20 06/13/20 04:04 13:25 14:56 Temperature 97.9 F 98.6 F 97.2 F L Pulse Rate 122 H 78 68 Respiratory 22 12 12 Rate Blood Pressure 151/99 102/68 105/61 O2 Sat by Pulse 95 96 97 Oximetry - Reevaluation(s) Reevaluation #1: 06/13/20 15:35 Patient rested comfortably throughout the day. The patient will be evaluated by the EPS service. This is pending the care will be endorsed to Dr. Pérez at our shift change (Catalino Wells) Medical Decision Making <Catalino Wells - Last Filed: 06/13/20 16:08> - Medical Decision Making Patient was determined to be sober was evaluated by psychiatric service she'll be admitted for inpatient treatment. (Catalino Wells) - Lab Data Lab Results 06/13/20 Range/Units 04:37 Urine Opiates Screen Not Detected (NotDetected) Ur Oxycodone Screen Not Detected (NotDetected) Urine Methadone Screen Not Detected (NotDetected) Ur Propoxyphene Screen Not Detected (NotDetected) Ur Barbiturates Screen Not Detected (NotDetected) U Tricyclic Antidepress Not Detected (NotDetected) Ur Phencyclidine Scrn Not Detected (NotDetected) Ur Amphetamines Screen Not Detected (NotDetected) U Methamphetamines Scrn Not Detected (NotDetected) U Benzodiazepines Scrn Not Detected (NotDetected) Urine Cocaine Screen Detected H (NotDetected) U Marijuana (THC) Screen Detected H (NotDetected) Disposition <David Hurley - Last Filed: 06/13/20 07:58> <Catalino Wells - Last Filed: 06/13/20 16:08> Clinical Impression: Depression, Alcohol intoxication Disposition: TRANSFER TO PSYCH HOSP/UNIT Condition: Stable
[2020-06-13] MEDS ORDERED: ZIPRASIDONE 20 MG VIAL IM PRN (16:02)
[2020-06-13] MEDS ORDERED: MAGNESIUM HYDROXIDE 2,400 MG/10 ML CUP PO PRN (16:02)
[2020-06-13] MEDS ORDERED: LORazepam 2 MG/ML INJ IM PRN (16:05)
[2020-06-13 16:45] LABS: Appearance,Urine Turbid (Clear); Bilirubin,Urine Negative (Negative); Blood,Urine Negative (Negative); Color,Urine Yellow; Glucose,Urine (UA) Negative (Negative); Ketones,Urine Negative (Negative); Leukocyte Esterase,Urine Negative (Negative); Mucus,Urine Rare /hpf; Nitrite,Urine Negative (Negative); PH, Urine 5.5 (5.0-8.0); Protein,Urine Trace (Negative); RBC,Urine 1 /hpf (0-5); Squamous Epithelial Cell,Urine 1 /hpf (0-4); Urobilinogen,Urine <2.0 mg/dL (<2.0); WBC,Urine 1 /hpf (0-5)
[2020-06-13] MEDS: NICOTINE 14MG/24HR PATCH TRANSDERM SCH (18:09)
--- NOTE | 2020-06-13 20:08 | P.CONS ---
History of Present Illness - Reason for Consult Consult date: 06/13/20 - History of Present Illness Patient was seen with the psychiatric aide Patient is a 35-year-old homeless female with a PMH of cocaine abuse, tobacco abuse, EtOH abuse, and depression who presented to the emergency room with depression and suicidal ideation. Patient was admitted to the mental health unit where she was seen and evaluated. The patient reports drinking a pint of hard liquor 3-4 times a week. Denied history of hospitalization due to alcohol withdrawal. Denied ICU admissions or withdrawal seizures. Notes that her last drink was yesterday. Reports that she last used cocaine 2 weeks ago. Smokes half a pack of cigarettes daily. Denied any physical complaints. Denied chest pain, shortness of cough, fever, chills, nausea, vomiting, abdominal pain, or diarrhea. Review of Systems Pertinent positives and negatives as discussed in HPI, a complete review of systems was performed and all other systems are negative. Past Medical History Past Medical History: COPD, Pneumonia Additional Past Medical History / Comment(s): migraines, scoliosis, chronic back pain, arthritis, chronic bronchitis History of Any Multi-Drug Resistant Organisms: MRSA Year Discovered:: 06/06/17 MDRO Source:: AXILLA Past Surgical History: No Surgical Hx Reported Additional Past Surgical History / Comment(s): dental surgery Past Anesthesia/Blood Transfusion Reactions: No Reported Reaction Smoking Status: Current every day smoker - Past Family History Mother Additional Family Medical History / Comment(s): Hypertension, stroke, cancer Father Family Medical History: No Reported History Medications and Allergies Home Medications Medication Instructions Recorded Confirmed Type Omeprazole 20 mg PO BID 01/11/18 06/13/20 History PARoxetine HCL [Paxil] 40 mg PO HS #30 tablet 03/18/19 06/13/20 Rx Allergies Allergy/AdvReac Type Severity Reaction Status Date / Time Penicillins Allergy Rash/Hives Verified 06/13/20 11:47 Physical Exam Vitals: Vital Signs Temp Pulse Resp BP BP Pulse Ox 06/13/20 18:51 97.6 F 06/13/20 17:23 98.3 F 14 126/84 96 06/13/20 14:56 97.2 F L 68 12 105/61 97 06/13/20 13:25 98.6 F 78 12 102/68 96 06/13/20 04:04 97.9 F 122 H 22 151/99 95 Intake and Output 06/13/20 06/13/20 06/13/20 06:59 14:59 22:59 Other: Weight 76.204 kg 74.4 kg General: non toxic, no distress, appears older than stated age, normal weight Derm: no unusual rashes/lesions no unusual ecchymoses, warm, dry Head: atraumatic, normocephalic, symmetric Eyes: EOMI, no lid lag, anicteric sclera, pupils equal round reactive to light ENT: Nose and ears atraumatic, no thrush, no pharyngeal erythema Neck: No thyromegaly, no cervical lymphadenopathy, trachea midline, supple Mouth: no lip lesion, mucus membranes moist Cardiovascular: S1S2 reg, no murmur, positive posterior tibial pulse bilateral, no edema, capillary refill less than 2 seconds Lungs: CTA bilateral, no rhonchi, no rales , no accessory muscle use Abdominal: soft, nontender to palpation, no guarding, no appreciable organomegaly, normal bowel sounds Ext: no gross muscle atrophy, muscle strength 5 out of 5 in all 4 extremities grossly, no contractures, Neuro: CN II-XI grossly intact, light touch intact all 4 extremities, finger to nose within normal limits, Psych: Alert, oriented, appropriate affect Results Labs: Abnormal Lab Results - Last 24 Hours (Table) 06/13/20 06/13/20 Range/Units 04:37 04:37 Urine Appearance Turbid H (Clear) Urine Protein Trace H (Negative) Urine Mucus Rare H (None) /hpf Urine Cocaine Screen Detected H (NotDetected) U Marijuana (THC) Screen Detected H (NotDetected) Assessment and Plan Plan: EtOH abuse -Advised the patient on importance of cessation -Monitor for signs of withdrawal -Thiamine, folate, multivitamin Cocaine and tobacco abuse -Advised on the importance of cessation Depression and suicidal ideation -As per psychiatry Thank you for allowing us to participate in the care of this patient. We will follow peripherally. Do not hesitate to contact us with questions. Someone can be reached from the [facility] hospitalist group at all hours of the day at [phone].
[2020-06-13] MEDS ORDERED: PARoxetine 20 MG TAB PO SCH (21:00)
[2020-06-14 09:58] LABS: Basophils % (A) 1 %; Eosinophils # (A) 0.1 k/uL (0-0.7); Eosinophils % (A) 2 %; HCT 42.2 % (34.0-46.0); HGB 13.7 gm/dL (11.4-16.0); Lymphocytes % (A) 26 %; MCH 31.2 pg (25.0-35.0); MCHC 32.5 g/dL (31.0-37.0); MCV 95.9 fL (80.0-100.0); Monocytes # (A) 0.2 k/uL (0-1.0); Monocytes % (A) 3 %; Neutrophils # (A) 5.3 k/uL (1.3-7.7); Neutrophils % (A) 68 %; Platelet Count 326 k/uL (150-450); RDW 13.9 % (11.5-15.5); WBC 7.8 k/uL (3.8-10.6)
[2020-06-14 10:07] LABS: ALT 37 U/L (4-34); AST 34 U/L (14-36); African American GFR (CKD) >90 (>60 ml/min/1.73 sqM); Alkaline Phosphatase 48 U/L (38-126); Anion Gap 7 mmol/L; Blood Urea Nitrogen 14 mg/dL (7-17); Calcium 9.5 mg/dL (8.4-10.2); Carbon Dioxide 26 mmol/L (22-30); Chloride 104 mmol/L (98-107); Cholesterol 189 mg/dL (<200); Glucose 132 mg/dL (74-99); HDL Cholesterol 51 mg/dL (40-60); LDL Cholesterol,Calculated 108 mg/dL (0-99); Non-African American GFR(CKD) >90 (>60 ml/min/1.73 sqM); Potassium 4.1 mmol/L (3.5-5.1); Sodium 137 mmol/L (137-145); Total Bilirubin 0.8 mg/dL (0.2-1.3); Total Protein 6.8 g/dL (6.3-8.2); Triglycerides 149 mg/dL (<150)
[2020-06-14] MEDS: NICOTINE 14MG/24HR PATCH TRANSDERM SCH (10:09)
[2020-06-14] MEDS: THIAMINE 100 MG TAB PO SCH (10:10)
[2020-06-14] MEDS: FOLIC ACID 1 MG TAB PO SCH (10:10)
[2020-06-14] MEDS: MULTIVITAMINS, THERA 1 EACH TAB PO SCH (10:11)
[2020-06-14] MEDS: LORazepam 1 MG TAB PO PRN ×2 (10:11→20:12)
[2020-06-14] MEDS: PANTOPRAZOLE 40 MG TABLET PO SCH (10:11)
--- NOTE | 2020-06-14 14:17 | P.HP ---
Psychiatric H&P - . H&P Date: 06/14/20 History & Physical: Allergies Allergy/AdvReac Type Severity Reaction Status Date / Time Penicillins Allergy Rash/Hives Verified 06/13/20 11:47 Vital Signs Temp 97.4 F L 06/14/20 07:15 Pulse 83 06/14/20 10:12 Resp 16 06/14/20 07:15 BP 119/82 06/14/20 10:12 Pulse Ox 96 06/13/20 17:23 Intake & Output 06/13/20 06/14/20 06/14/20 18:59 06:59 18:59 Weight 74.4 kg Laboratory Last Values WBC 7.8 k/uL (3.8-10.6) 06/14/20 09:08 RBC 4.40 m/uL (3.80-5.40) 06/14/20 09:08 Hgb 13.7 gm/dL (11.4-16.0) 06/14/20 09:08 Hct 42.2 % (34.0-46.0) 06/14/20 09:08 MCV 95.9 fL (80.0-100.0) 06/14/20 09:08 MCH 31.2 pg (25.0-35.0) 06/14/20 09:08 MCHC 32.5 g/dL (31.0-37.0) 06/14/20 09:08 RDW 13.9 % (11.5-15.5) 06/14/20 09:08 Plt Count 326 k/uL (150-450) 06/14/20 09:08 Neutrophils % 68 % 06/14/20 09:08 Lymphocytes % 26 % 06/14/20 09:08 Monocytes % 3 % 06/14/20 09:08 Eosinophils % 2 % 06/14/20 09:08 Basophils % 1 % 06/14/20 09:08 Neutrophils # 5.3 k/uL (1.3-7.7) 06/14/20 09:08 Lymphocytes # 2.0 k/uL (1.0-4.8) 06/14/20 09:08 Monocytes # 0.2 k/uL (0-1.0) 06/14/20 09:08 Eosinophils # 0.1 k/uL (0-0.7) 06/14/20 09:08 Basophils # 0.0 k/uL (0-0.2) 06/14/20 09:08 Sodium 137 mmol/L (137-145) 06/14/20 09:08 Potassium 4.1 mmol/L (3.5-5.1) 06/14/20 09:08 Chloride 104 mmol/L (98-107) 06/14/20 09:08 Carbon Dioxide 26 mmol/L (22-30) 06/14/20 09:08 Anion Gap 7 mmol/L 06/14/20 09:08 BUN 14 mg/dL (7-17) 06/14/20 09:08 Creatinine 0.68 mg/dL (0.52-1.04) 06/14/20 09:08 Est GFR (CKD-EPI)AfAm >90 (>60 ml/min/1.73 sqM) 06/14/20 09:08 Est GFR (CKD-EPI)NonAf >90 (>60 ml/min/1.73 sqM) 06/14/20 09:08 Glucose 132 mg/dL (74-99) H 06/14/20 09:08 Calcium 9.5 mg/dL (8.4-10.2) 06/14/20 09:08 Total Bilirubin 0.8 mg/dL (0.2-1.3) 06/14/20 09:08 AST 34 U/L (14-36) 06/14/20 09:08 ALT 37 U/L (4-34) H 06/14/20 09:08 Alkaline Phosphatase 48 U/L (38-126) 06/14/20 09:08 Total Protein 6.8 g/dL (6.3-8.2) 06/14/20 09:08 Albumin 4.0 g/dL (3.5-5.0) 06/14/20 09:08 Triglycerides 149 mg/dL (<150) 06/14/20 09:08 Cholesterol 189 mg/dL (<200) 06/14/20 09:08 LDL Cholesterol, Calc 108 mg/dL (0-99) H 06/14/20 09:08 HDL Cholesterol 51 mg/dL (40-60) 06/14/20 09:08 TSH 0.475 mIU/L (0.465-4.680) 06/14/20 09:08 Urine Color Yellow 06/13/20 04:37 Urine Appearance Turbid (Clear) H 06/13/20 04:37 Urine pH 5.5 (5.0-8.0) 06/13/20 04:37 Ur Specific [place] 1.020 (1.001-1.035) 06/13/20 04:37 Urine Protein Trace (Negative) H 06/13/20 04:37 Urine Glucose (UA) Negative (Negative) 06/13/20 04:37 Urine Ketones Negative (Negative) 06/13/20 04:37 Urine Blood Negative (Negative) 06/13/20 04:37 Urine Nitrite Negative (Negative) 06/13/20 04:37 Urine Bilirubin Negative (Negative) 06/13/20 04:37 Urine Urobilinogen <2.0 mg/dL (<2.0) 06/13/20 04:37 Ur Leukocyte Esterase Negative (Negative) 06/13/20 04:37 Urine RBC 1 /hpf (0-5) 06/13/20 04:37 Urine WBC 1 /hpf (0-5) 06/13/20 04:37 Ur Squamous Epith Cells 1 /hpf (0-4) 06/13/20 04:37 Urine Mucus Rare /hpf (None) H 06/13/20 04:37 Urine HCG, Qual Not Detected (Not Detectd) 06/13/20 04:37 Urine Opiates Screen Not Detected (NotDetected) 06/13/20 04:37 Ur Oxycodone Screen Not Detected (NotDetected) 06/13/20 04:37 Urine Methadone Screen Not Detected (NotDetected) 06/13/20 04:37 Ur Propoxyphene Screen Not Detected (NotDetected) 06/13/20 04:37 Ur Barbiturates Screen Not Detected (NotDetected) 06/13/20 04:37 U Tricyclic Antidepress Not Detected (NotDetected) 06/13/20 04:37 Ur Phencyclidine Scrn Not Detected (NotDetected) 06/13/20 04:37 Ur Amphetamines Screen Not Detected (NotDetected) 06/13/20 04:37 U Methamphetamines Scrn Not Detected (NotDetected) 06/13/20 04:37 U Benzodiazepines Scrn Not Detected (NotDetected) 06/13/20 04:37 Urine Cocaine Screen Detected (NotDetected) H 06/13/20 04:37 U Marijuana (THC) Screen Detected (NotDetected) H 06/13/20 04:37 06/14/20 14:07 IDENTIFYING DATA: Patient is a 35-year-old female who is currently homeless and staying with different friends has one son was a strange and is currently unemployed. HPI: Patient presented to the hospital yesterday with complaints of suicidal thoughts and ongoing and worsening depression. According to medical H&P, patient had been drinking hard liquor approximately 3-4 times a week and also admitted to using cocaine approximately 2 weeks ago. Patient was seen on the unit and agreeable to speak to abstract writer. Patient had appeared to be depressed and have poor hygiene and grooming. Patient was guarded/evasive during conversation. She admitted to ongoing drug use and drinking heavily recently. She denies any history of DTs or any alcohol withdrawal symptoms and currently only admits to ongoing anxiety however no tremors. She states that her life has been "rough all the time". She states that she is homeless has no friends now job and is not in contact with her family. She denies any acute recent stressors. She states that she is feeling overwhelmed and hopeless. She states that she has been taking her Paxil daily however claims that she feels is not helping her. She states that her sleep is poor she claims that her concentration is fair has some guilt and fair appetite. She claims that she has ongoing anxiety. She claims that she is currently expressing some suicidal thoughts over nontender plan.Patient denies any homicidal ideations intent or plan. At this time patient denies any auditory or visual hallucinations. Patient denies any flight of ideas racing thoughts and increased in goal directed behavior. Patient admits to using cocaine, last use was 2 weeks ago states that she uses marijuana daily and also has been using alcohol approximately 3-4 times a week drinking hard liquor. She also admits to using cigarettes. PAST PSYCHIATRIC HISTORY: Patient states that she has history of depression and anxiety. She claims that she is previously on Paxil and also was taking Lamictal. Patient's last hospitalization was in March 2019 and has had several other psychiatric admissions in the past. She states that she is to follow-up at [facility] however [facility]. She claims that she has had multiple suicide attempts in the past including overdosing and cutting herself. PMH: Chronic back pain, migraines, COPD, arthritis ALLERGIES: as per EMR CHEMICAL DEPENDENCY HISTORY: as per HPI FAMILY PSYCHIATRIC/SUBSTANCE USE HISTORY: denies SOCIAL HISTORY: Patient was born and raised in the [facility] and claims that she completed high school. 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 She claims that she is currently homeless and staying with different friends and has one son who is estranged to her. 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 MENTAL STATUS EXAM: General Appearance: Patient appears to be older than stated age is alert, guarded/evasive,. Patient appears to have poor hygiene and grooming. Poor eye contact Behavior: Patient is seated without any agitated behavior. Guarded/evasive Speech: Patient's speech is fluent and nonpressured. [place] Mood/Affect: Patient reports their mood is depressed and anxious, affect is congruent and constricted. Suicidality/Homicidality: Patient denies having any homicidal ideation intent or plan.. She admits to suicidal thoughts no intent or plan Perceptions: Patient denies any visual hallucinations and denies any auditory hallucinations Though content/process: Patient is concrete, poverty of content, denies any paranoia or delusions. Memory and concentration: AOX3, grossly intact for the purposes of this session. Can spell "WORLD" backwards Judgment and insight: poor STRENGTHS/WEAKNESSES: strength is that patient is resilient. Weakness is that patient has poor judgment and is impulsive INTELLECT: average IMPRESSIONS: Major depressive disorder, recurrent, severe without psychotic features Cocaine abuse Cannabis use disorder Alcohol abuse Nicotine dependence PLAN: -Patient is admitted under voluntary status to MHU for stabilization of psychiatric symptoms and safety. Patient has signed adult voluntary form and medication consent and is placed in patient's chart. -Medications : Will start patient on Zoloft 50 mg daily for mood/anxiety. Patient is also agreeable to take Benadryl 25 mg daily at bedtime for insomnia. Discontinued Paxil. -Ativan and Geodon PRN for agitation/aggression -Started thiamine, folic acid, MVM for etoh use -Patient was counselled on substance abuse and desired to cut back on use -Patient was informed of the risks, benefits and side effects of the medication and patient verbally consented to taking the medications. Patient signed med consent form and was placed in chart. -Internal Medicine consult to perform medical evaluation and physical. -NRT - nicotine patch -SW on board for discharge planning. Encourage patient to participate in groups to work on coping skills. Patient claims that she will be most likely agreeable to go to rehab upon discharge.
[2020-06-14] MEDS: SERTRALINE 50 MG TAB PO SCH (15:33)
[2020-06-14 17:27] LABS: Hemoglobin A1C 5.1 % (4.0-6.0)
[2020-06-14] MEDS: diphenhydrAMINE 25 MG CAP PO SCH (20:12)
[2020-06-15] MEDS: MULTIVITAMINS, THERA 1 EACH TAB PO SCH (08:39)
[2020-06-15] MEDS: THIAMINE 100 MG TAB PO SCH (08:39)
[2020-06-15] MEDS: SERTRALINE 50 MG TAB PO SCH (08:39)
[2020-06-15] MEDS: PANTOPRAZOLE 40 MG TABLET PO SCH (08:39)
[2020-06-15] MEDS: NICOTINE 14MG/24HR PATCH TRANSDERM SCH (08:39)
--- NOTE | 2020-06-15 08:41 | P.PN ---
Progress Note - Text Progress Note Date: 06/15/20 Interval History: Patient was seen wandering the hallways and was directable and agreeable to sp jorge with singer songwriter in the office. Patient continues to have poor eye contact however appears to have improvement in her hygiene and grooming today. She was mildly more talkative today however continues to endorse depression and anxiety. She states that she has not been going to groups lately and states that "I don't feel like it". She claims that she is worried about withdrawing from her Paxil however states that she is willing to get Zoloft try. She states that she was able to sleep a little bit better last night however has been taking naps throughout the day which disrupted her sleep. She claims to have a fair appetite. At this time patient denies any suicidal or homical ideations, intent or plan. Patient denies any auditory, visual hallucinations and denies any paranoia or delusions. Patient denies any side effects from the medications and has been compliant with meds. She states that now she will start to think more about rehab to address her drug use. Mental Status Exam: General Appearance: Patient appears to be older than stated age is alert, superficially cooperative. Patient appears to have improving hygiene and grooming. Poor eye contact Behavior: Patient is seated without any agitated behavior. Guarded/evasive, improving mildly Speech: Patient's speech is fluent and nonpressured. Mood/Affect: Patient reports their mood is depressed and anxious, affect is linda ruent and constricted. Suicidality/Homicidality: Patient denies having any homicidal ideation intent or plan. She denies any suicidal ideations intent or plan Perceptions: Patient denies any visual hallucinations and denies any auditory hallucinations Though content/process: Patient is concrete, poverty of content, denies any paranoia or delusions. Memory and concentration: AOX3, grossly intact for the purposes of this session Judgment and insight: poor, improving mildly Assessment Major depressive disorder, recurrent, severe without psychotic features Cocaine abuse Cannabis use disorder Alcohol abuse Nicotine dependence Plan: -Patient continues to meet criteria for inpatient psychiatric admission for symptom stabilization and safety. Patient has signed adult voluntary form and medication consent and was placed in patient's chart. -Medications: We'll increase Zoloft to 100 mg starting tomorrow for anxiety/mood. Continue with Benadryl 25 mg daily at bedtime for insomnia. -When necessary Ativan and Geodon for agitation/aggression. -thiamine, folic acid, MVM for etoh use -NRT - nicotine patch -SW on board for discharge planning. Encouraged the patient to participate in milieu. Patient claims that she will be most likely agreeable to go to rehab upon discharge.
[2020-06-15] MEDS: ACETAMINOPHEN TAB 325 MG TAB PO PRN ×2 (08:42→17:59)
[2020-06-15] MEDS: LORazepam 1 MG TAB PO PRN ×2 (08:43→17:59)
[2020-06-15] MEDS: FOLIC ACID 1 MG TAB PO SCH (09:34)
[2020-06-15] MEDS: diphenhydrAMINE 25 MG CAP PO SCH (21:56)
[2020-06-16] MEDS: THIAMINE 100 MG TAB PO SCH (08:31)
[2020-06-16] MEDS: SERTRALINE 100 MG TAB PO SCH (08:31)
[2020-06-16] MEDS: FOLIC ACID 1 MG TAB PO SCH (08:31)
[2020-06-16] MEDS: MULTIVITAMINS, THERA 1 EACH TAB PO SCH (08:31)
[2020-06-16] MEDS: PANTOPRAZOLE 40 MG TABLET PO SCH (08:31)
--- NOTE | 2020-06-16 10:21 | P.PN ---
Progress Note - Text Progress Note Date: 06/16/20 Interval History: Patient was seen lying in her bed this morning and was directable and agreeable to speak with scenario writer in the office. Patient appears to have improving eye contact and improving hygiene today. She claims that she is remaining to feel irritable during the day towards other people on the unit and claims that she is mainly isolating herself. She claims that she is also reading to try to distract herself in her room. She continues to endorse anxiety and depression and also withdrawal symptoms. She was open to try buspar during the day for anxiety. She states that she was able to sleep a little bit better last night however has been taking naps throughout the day which disrupted her sleep. She claims to have a fair appetite. At this time patient denies any suicidal or homical ideations, intent or plan. Patient denies any auditory, visual hallucinations and denies any paranoia or delusions. Patient denies any side effects from the medications and has been compliant with meds. She did claim that she would like to go to rehab however states that she would like to go to a longer program for more than 2 weeks. Mental Status Exam: General Appearance: Patient appears to be older than stated age is alert, superficially cooperative. Patient appears to have improving hygiene and grooming. Improving eye contact Behavior: Patient is seated without any agitated behavior. Irritable, improving mildly Speech: Patient's speech is fluent and nonpressured. Mood/Affect: Patient reports their mood is depressed and anxious, affect is congruent and irritable at times Suicidality/Homicidality: Patient denies having any homicidal ideation intent or plan. She denies any suicidal ideations intent or plan Perceptions: Patient denies any visual hallucinations and denies any auditory hallucinations Though content/process: Patient is concrete, poverty of content, denies any paranoia or delusions. Memory and concentration: AOX3, grossly intact for the purposes of this session Judgment and insight: poor, improving mildly Assessment Major depressive disorder, recurrent, severe without psychotic features Cocaine abuse Cannabis use disorder Alcohol abuse Nicotine dependence Plan: -Patient continues to meet criteria for inpatient psychiatric admission for symptom stabilization and safety. Patient has signed adult voluntary form and medication consent and was placed in patient's chart. -Medications: We'll continue Zoloft to 100 mg starting tomorrow for anxiety/mo od. Increased Benadryl 50 mg daily at bedtime for insomnia. Added BuSpar 7.5 mg 3 times a day for anxiety. If patient's anxiety and irritability are still significant tomorrow then we'll consider either Seroquel versus Lamictal. -When necessary Ativan and Geodon for agitation/aggression. -thiamine, folic acid, MVM for etoh use -NRT - nicotine patch -SW on board for discharge planning. Encouraged the patient to participate in milieu. Patient claims that she will be most likely agreeable to go to rehab upon discharge.
[2020-06-16] MEDS: busPIRone HCl 5 MG TAB PO SCH ×3 (11:14→20:20)
[2020-06-16] MEDS: ACETAMINOPHEN TAB 325 MG TAB PO PRN (17:09)
[2020-06-16] MEDS ORDERED: diphenhydrAMINE 50 MG CAP PO SCH (21:00)
[2020-06-17] MEDS: THIAMINE 100 MG TAB PO SCH (08:35)
[2020-06-17] MEDS: FOLIC ACID 1 MG TAB PO SCH (08:36)
[2020-06-17] MEDS: MULTIVITAMINS, THERA 1 EACH TAB PO SCH (08:36)
[2020-06-17] MEDS: PANTOPRAZOLE 40 MG TABLET PO SCH (08:37)
[2020-06-17] MEDS: SERTRALINE 100 MG TAB PO SCH (08:37)
[2020-06-17] MEDS: busPIRone HCl 5 MG TAB PO SCH ×3 (08:37→20:51)
--- NOTE | 2020-06-17 10:31 | P.PN ---
Progress Note - Text Progress Note Date: 06/17/20 Interval History: Patient was seen lying in her bed this morning and appeared to be irritable and hostile towards life underwriter. She refused to get up out of bed and claim that she did not want to talk to life underwriter. She states that she is feeling very tired and did not sleep last night because of the patient across the hallway who has been yelling. She continues to endorse depression and anxiety. She denied any suicidal or homicidal ideations intent or plan. Patient denies any auditory, visual hallucinations and denies any paranoia or delusions. Patient denies any side effects from the medications and has been compliant with meds. Mental Status Exam: General Appearance: Patient appears to be older than stated age is alert, irritable and uncooperative. Patient appears to have improving hygiene and grooming. Behavior: Patient is seated without any agitated behavior. Irritable Speech: Patient's speech is fluent and nonpressured. Mood/Affect: Patient reports their mood is depressed and anxious, affect is congruent and irritable Suicidality/Homicidality: Patient denies having any homicidal ideation intent or plan. She denies any suicidal ideations intent or plan Perceptions: Patient denies any visual hallucinations and denies any auditory hallucinations Though content/process: Patient is concrete, poverty of content, denies any paranoia or delusions. Memory and concentration: AOX3, grossly intact for the purposes of this session Judgment and insight: poor, improving mildly Assessment Major depressive disorder, recurrent, severe without psychotic features Cocaine abuse Cannabis use disorder Alcohol abuse Nicotine dependence Plan: -Patient continues to meet criteria for inpatient psychiatric admission for symptom stabilization and safety. Patient has signed adult voluntary form and medication consent and was placed in patient's chart. -Medications: Increased Zoloft to 150 mg starting tomorrow for anxiety/mood. Discontinued Benadryl and replaced with Seroquel 25 mg daily +50 mg daily at bedtime for insomnia/mood stabilization/irritability. Continue with BuSpar 7.5 mg 3 times a day for anxiety. -When necessary Ativan and Geodon for agitation/aggression. -thiamine, folic acid, MVM for etoh use -NRT - nicotine patch -SW on board for discharge planning. Encouraged the patient to participate in milieu. Patient claims that she will be most likely agreeable to go to rehab upon discharge.
[2020-06-17] MEDS: QUEtiapine 25 MG TAB PO SCH (11:30)
[2020-06-17] MEDS: MAG HYDROX/AL HYDROX/SIMETH 30 ML CUP PO PRN (18:20)
[2020-06-17] MEDS ORDERED: QUEtiapine 50 MG TAB PO SCH (21:00)
[2020-06-18] MEDS: QUEtiapine 25 MG TAB PO SCH ×2 (08:39→21:00)
[2020-06-18] MEDS: MULTIVITAMINS, THERA 1 EACH TAB PO SCH (08:43)
[2020-06-18] MEDS: THIAMINE 100 MG TAB PO SCH (08:43)
[2020-06-18] MEDS: SERTRALINE 50 MG TAB PO SCH (08:43)
[2020-06-18] MEDS: FOLIC ACID 1 MG TAB PO SCH (08:43)
[2020-06-18] MEDS: busPIRone HCl 5 MG TAB PO SCH (08:43)
[2020-06-18] MEDS: PANTOPRAZOLE 40 MG TABLET PO SCH ×2 (08:43→16:36)
--- NOTE | 2020-06-18 11:44 | P.PN ---
Progress Note - Text Progress Note Date: 06/18/20 Interval History: Patient was seen lying in her bed this morning and appeared to be less irritable today and was directable and agreeable to speak to fiction and nonfiction prose writer in the office. Patient appeared to have improvement in her irritability today and states that she is able to sleep approximately 4-5 hours last night. She states that she does not like taking the Seroquel during the day and would prefer to have it at nighttime. She states that her mood has been gradually improving and claims that her anxiety is also been improving as well. She states that yesterday she was feeling homicidal towards another patient across the hallway for being so disruptive however today she states that that is gone better. She continues to state that she is experiencing "withdrawal symptoms" from her Paxil and is continuing to deal with irritability and anxiety. She denied any current suicidal or homicidal ideations intent or plan. Patient denies any auditory, visual hallucinations and denies any paranoia or delusions. Patient denies any side effects from the medications and has been compliant with meds. Patient was clinically of ongoing acid reflux and requested of her tonics increased. Mental Status Exam: General Appearance: Patient appears to be older than stated age is alert, irritable, improving mildly. Patient appears to have improving hygiene and grooming. Behavior: Patient is seated without any agitated behavior. Irritable, and prevention mildly Speech: Patient's speech is fluent and nonpressured. Mood/Affect: Patient reports their mood is depressed and anxious, affect is congruent and irritable Suicidality/Homicidality: Patient denies having any homicidal ideation intent or plan. She denies any suicidal ideations intent or plan Perceptions: Patient denies any visual hallucinations and denies any auditory hallucinations Though content/process: Patient is concrete, poverty of content, denies any paranoia or delusions. More goal oriented today. Memory and concentration: AOX3, grossly intact for the purposes of this session Judgment and insight: Chronically poor, improving mildly Assessment Major depressive disorder, recurrent, severe without psychotic features Cocaine abuse Cannabis use disorder Alcohol abuse Nicotine dependence Plan: -Patient continues to meet criteria for inpatient psychiatric admission for symptom stabilization and safety. Patient has signed adult voluntary form and medication consent and was placed in patient's chart. -Medications: Continue with Zoloft to 150 mg for anxiety/mood. Switched Seroquel 75 mg daily at bedtime for insomnia/mood stabilization/irritability. Increased BuSpar 10 mg 3 times a day for anxiety. -When necessary Ativan and Geodon for agitation/aggression. -thiamine, folic acid, MVM for etoh use -NRT - nicotine patch -SW on board for discharge planning. Encouraged the patient to participate in milieu. Patient states that she be willing to go to [facility] next week and currently awaiting a bed to be open. Due to patient's high risk for relapse we'll discharge patient early next week likely Sunday.
[2020-06-18] MEDS: ACETAMINOPHEN TAB 325 MG TAB PO PRN ×2 (13:36→17:45)
[2020-06-18] MEDS: busPIRone HCl 10 MG TAB PO SCH ×2 (16:36→21:00)
[2020-06-19] MEDS: SERTRALINE 50 MG TAB PO SCH (07:55)
[2020-06-19] MEDS: PANTOPRAZOLE 40 MG TABLET PO SCH ×2 (07:55→17:07)
[2020-06-19] MEDS: FOLIC ACID 1 MG TAB PO SCH (07:55)
[2020-06-19] MEDS: THIAMINE 100 MG TAB PO SCH (07:55)
[2020-06-19] MEDS: busPIRone HCl 10 MG TAB PO SCH ×3 (07:55→21:13)
[2020-06-19] MEDS: MULTIVITAMINS, THERA 1 EACH TAB PO SCH (07:55)
[2020-06-19] MEDS: ACETAMINOPHEN TAB 325 MG TAB PO PRN ×2 (08:38→17:36)
--- NOTE | 2020-06-19 09:31 | P.PN ---
Progress Note - Text Progress Note Date: 06/19/20 Interval history: Patient was seen wandering the hallways and was directable and agreeable to speak with promotion writer. Patient expresses that the Seroquel is causing her to have restless leg. She is otherwise reporting no significant issues with mood. She is denying any suicidal or homicidal ideation, intention, and/or plan. She reports that even if she chooses not to take any Seroquel, she does not require any sleeping aid. She states that she will be able to sleep on her own. She is not reporting any auditory or visual hallucinations. She states that she is looking forward to discharge and is willing to go to [facility]. Mental status exam: General Appearance: Patient appears to be stated age is alert, directable, and cooperative. Behavior: No agitated behavior. Patient is calm and directable. Psychomotor activity slightly elevated. Speech: Patient's speech is fluent and nonpressured. Speech is slightly fast but is interruptible. Mood/Affect: Mood is improving mildly, affect is congruent and expansive Suicidality/Homicidality: Patient denies having any suicidal or homicidal ideation intent or plan. Perceptions: Patient denies any auditory or visual hallucinations. Though content/process: There is no evidence of any delusional thought content and thought process is linear and goal-directed. Memory and concentration: AOX3, grossly intact for the purposes of this session Judgment and insight: improving mildly Assessment/Plan: Continue with current diagnosis. Patient continues to meet criteria for inpatient psychiatric admission for symptom stabilization and safety.Patient will be maintained on current psychotropic medication regimen. Monitor for medication compliance and for any psychotropic medication side effects. Will continue to monitor ongoing response to treatment. Encouraged participation in milieu.
[2020-06-19] MEDS: IBUPROFEN 600 MG TAB PO PRN ×2 (11:12→21:14)
[2020-06-19] MEDS: MAG HYDROX/AL HYDROX/SIMETH 30 ML CUP PO PRN (16:04)
[2020-06-19] MEDS: QUEtiapine 25 MG TAB PO SCH (21:13)
[2020-06-20 04:48] VITALS: RESP 16
[2020-06-20] MEDS: PANTOPRAZOLE 40 MG TABLET PO SCH ×2 (08:20→16:32)
[2020-06-20] MEDS: THIAMINE 100 MG TAB PO SCH (08:20)
[2020-06-20] MEDS: FOLIC ACID 1 MG TAB PO SCH (08:20)
[2020-06-20] MEDS: busPIRone HCl 10 MG TAB PO SCH ×3 (08:20→20:22)
[2020-06-20] MEDS: MULTIVITAMINS, THERA 1 EACH TAB PO SCH (08:20)
[2020-06-20] MEDS: SERTRALINE 50 MG TAB PO SCH (08:20)
--- NOTE | 2020-06-20 09:29 | P.PN ---
Progress Note - Text Progress Note Date: 06/20/20 Interval history: Patient was seen resting in bed and reading a book and was agreeable to speak with the fiction and nonfiction prose writer in the room without anyone in the room present. Patient reports that she is feeling tired today. She reports that she did not take any Seroquel last night because of concerns of breast leg syndrome as well as she wanted to try to sleep without the aid of any medication. She reports that she did not nap throughout the day. This provider discussed possibly starting melatonin to help her regulate her sleep schedule, but the patient reports that she is not interested at this time. She is not reporting any suicidal or homicidal ideation, intention, and/or plan. She has been adherent with her other medications and denies any side effects at this time. She denies any auditory or visual hallucinations. She is future oriented and is looking forward to [facility]. Mental status exam: General Appearance: Patient appears to be stated age is alert, directable, and cooperative. Behavior: No agitated behavior. Patient is calm and directable. Psychomotor activity is normal today. Speech: Patient's speech is fluent and nonpressured. Speech is slightly fast but is interruptible. Mood/Affect: Mood is "tired." affect is slightly expansive otherwise euthymic. Suicidality/Homicidality: Patient denies having any suicidal or homicidal ideation intent or plan. Perceptions: Patient denies any auditory or visual hallucinations. Though content/process: There is no evidence of any delusional thought content and thought process is linear and goal-directed. Memory and concentration: AOX3, grossly intact for the purposes of this session Judgment and insight: improving mildly Assessment/Plan: Continue with current diagnosis. Patient continues to meet criteria for inpatient psychiatric admission for symptom stabilization and safety. Patient will be maintained on current psychotropic medication regimen. Monitor for medication compliance and for any psychotropic medication side effects. Will continue to monitor ongoing response to treatment. Encouraged participation in milieu.
[2020-06-20] MEDS: ACETAMINOPHEN TAB 325 MG TAB PO PRN ×2 (14:51→20:22)
[2020-06-20] MEDS: IBUPROFEN 600 MG TAB PO PRN (16:32)
[2020-06-20] MEDS: QUEtiapine 25 MG TAB PO SCH (20:20)
[2020-06-21] MEDS: MULTIVITAMINS, THERA 1 EACH TAB PO SCH (08:40)
[2020-06-21] MEDS: busPIRone HCl 10 MG TAB PO SCH (08:40)
[2020-06-21] MEDS: FOLIC ACID 1 MG TAB PO SCH (08:40)
[2020-06-21] MEDS: SERTRALINE 50 MG TAB PO SCH (08:40)
[2020-06-21] MEDS: PANTOPRAZOLE 40 MG TABLET PO SCH ×2 (08:40→16:57)
[2020-06-21] MEDS: THIAMINE 100 MG TAB PO SCH (08:40)
[2020-06-21] MEDS: IBUPROFEN 600 MG TAB PO PRN ×3 (08:42→23:22)
[2020-06-21] MEDS: ACETAMINOPHEN TAB 325 MG TAB PO PRN ×2 (11:05→21:02)
--- NOTE | 2020-06-21 11:24 | P.PN ---
Progress Note - Text Progress Note Date: 06/21/20 Interval History: Patient was seen wandering the hallways this morning and was directable and ag reeable to speak to ad copy writer in the office. Patient appears to be brighter today and her affect and claims the she has had improvement in her mood and anxiety over the weekend. She claims that the Seroquel was causing her to be "restless" at nighttime and has been refusing this medication for the past 2 days. She states that she doesn't need to be on any sleep medication and states that she was only sleeping during the day which was affecting her at nighttime. She claims that she has been going to some groups and participating. She states that she is more optimistic about going to [facility] when she is discharged. She claims that she has continuing to deal with irritability and anxiety. She denied any current suicidal or homicidal ideations intent or plan. Patient denies any auditory, visual hallucinations and denies any paranoia or delusions. Patient denies any side effects from the medications and has been compliant with meds. Mental Status Exam: General Appearance: Patient appears to be older than stated age is alert, less irritable, improving mildly. Patient appears to have improving hygiene and grooming. Behavior: Patient is seated without any agitated behavior. More cooperative today Speech: Patient's speech is fluent and nonpressured. Mood/Affect: Patient reports their mood is depressed and anxious, affect is congruent Suicidality/Homicidality: Patient denies having any homicidal ideation intent or plan. She denies any suicidal ideations intent or plan Perceptions: Patient denies any visual hallucinations and denies any auditory hallucinations Though content/process: Patient is concrete, poverty of content, denies any paranoia or delusions. More goal oriented today. Memory and concentration: AOX3, grossly intact for the purposes of this session Judgment and insight: Chronically poor, improving mildly Assessment Major depressive disorder, recurrent, severe without psychotic features Cocaine abuse Cannabis use disorder Alcohol abuse Nicotine dependence Plan: -Patient continues to meet criteria for inpatient psychiatric admission for symptom stabilization and safety. Patient has signed adult voluntary form and medication consent and was placed in patient's chart. -Medications: Continue with Zoloft to 150 mg for anxiety/mood. Discontinued Seroquel due to poor tolerability. Increased BuSpar 15 mg 3 times a day for anxiety. -When necessary Ativan and Geodon for agitation/aggression. -thiamine, folic acid, MVM for etoh use -NRT - nicotine patch -SW on board for discharge planning. Encouraged the patient to participate in milieu. Patient states that she be willing to go to [facility], currently awaiting acceptance. Will likely discharge tomorrow either to [facility] or to jail in the meantime as she waits for [facility]
[2020-06-21] MEDS: busPIRone HCl 5 MG TAB PO SCH ×2 (16:03→21:02)
[2020-06-21] MEDS: MAG HYDROX/AL HYDROX/SIMETH 30 ML CUP PO PRN (21:24)
[2020-06-22 02:36] VITALS: BP 141/80; PULSE 76; TEMP 97.9
[2020-06-22] MEDS: SERTRALINE 50 MG TAB PO SCH (07:43)
[2020-06-22] MEDS: FOLIC ACID 1 MG TAB PO SCH (07:43)
[2020-06-22] MEDS: PANTOPRAZOLE 40 MG TABLET PO SCH (07:43)
[2020-06-22] MEDS: THIAMINE 100 MG TAB PO SCH (07:43)
[2020-06-22] MEDS: MULTIVITAMINS, THERA 1 EACH TAB PO SCH (07:43)
[2020-06-22] MEDS: busPIRone HCl 5 MG TAB PO SCH (07:43)
[2020-06-22] MEDS: IBUPROFEN 600 MG TAB PO PRN (07:44)
--- NOTE | 2020-06-22 09:42 | P.DS ---
Providers Date of admission: 06/13/20 15:52 Expected date of discharge: 06/22/20 Attending physician: Liam Leon MD Consults: 06/13/20 16:02 Consult Physician Routine Consulting Provider: Chepe Broussard Consult Reason/Comments: H & P New Admission Do you want consulting provider notified?: Already Contacted Primary care physician: [facility] - Discharge Diagnosis(es) (1) Major depressive disorder, recurrent severe without psychotic features Current Visit: Yes Status: Acute Priority: High (2) Cocaine abuse Current Visit: Yes Status: Acute Priority: Medium (3) Cannabis use disorder, mild, abuse Current Visit: Yes Status: Acute Priority: Medium (4) Alcohol abuse Current Visit: Yes Status: Acute Priority: Medium (5) Nicotine dependence Current Visit: Yes Status: Acute Priority: Low Hospital Course: Admission HPI: Admission and was completed by investment underwriter "Patient is a 35-year-old female who is currently homeless and staying with different friends has one son was a strange and is currently unemployed. Patient presented to the hospital yesterday with complaints of suicidal thoughts and ongoing and worsening depression. According to medical H&P, patient had been drinking hard liquor approximately 3- 4 times a week and also admitted to using cocaine approximately 2 weeks ago. Patient was seen on the unit and agreeable to speak to investment underwriter. Patient had appeared to be depressed and have poor hygiene and grooming. Patient was guarded/evasive during conversation. She admitted to ongoing drug use and drinking heavily recently. She denies any history of DTs or any alcohol withdrawal symptoms and currently only admits to ongoing anxiety however no tremors. She states that her life has been "rough all the time". She states that she is homeless has no friends now job and is not in contact with her family. She denies any acute recent stressors. She states that she is feeling overwhelmed and hopeless. She states that she has been taking her Paxil daily however claims that she feels is not helping her. She states that her sleep is poor she claims that her concentration is fair has some guilt and fair appetite. She claims that she has ongoing anxiety. She claims that she is currently expressing some suicidal thoughts over nontender plan.Patient denies any homicidal ideations intent or plan. At this time patient denies any auditory or visual hallucinations. Patient denies any flight of ideas racing thoughts and increased in goal directed behavior. Patient admits to using cocaine, last use was 2 weeks ago states that she uses marijuana daily and also has been using alcohol approximately 3-4 times a week drinking hard liquor. She also admits to using cigarettes." Hospital course: Upon admission to the unit patient was initially depressed, anxious and suicidal. Patient was however directable and agreeable to commence treatment and signed adult voluntary form. Patient got along well with other patients on the unit and followed unit protocol. Patient was compliant with the medications and denied any side effects throughout hospital course. Patient was started on Zoloft and titrated up to a dose of 150 mg daily for anxiety/mood. Patient's Paxil was discontinued. Patient was also tried on Seroquel for irritability and as a mood stabilizing agent however patient initially tolerated it well however complained of restlessness at nighttime and it was discontinued. Patient was also started on BuSpar and titrated up to dose of 15 mg 3 times a day for anxiety. Patient spoke of her stressors and engaged in therapy both group and individual. Patient was also seen by medical team for history and physical exam. Patient was also placed on Thiamine, folic acid and multivitamin were chronic alcohol use. Throughout the course of the hospitalization patient gradually improved with regards to mood, anxiety, irritability, sleep and became future oriented with improved insight and judgment. On the day of discharge patient denied any suicidal or homicidal ideations intent or plan denied any auditory or visual hallucinations. Patient endorsed wanting to live for her health and her family. The patient denied any access to guns or weapons. Patient denied any paranoia and did not endorse any delusions. Patient does have a significant history of substance abuse and was counseled on abstaining from all substances including alcohol and marijuana. Patient was offered to go to a sober house [facility] upon discharge and patient was agreeable to it. Although patient was not able to get into [facility] directly upon discharge, patient will stay temporarily at her friend's house prior to going to [facility]. Patient was also counseled on the medications and need for regular compliance and was encouraged to follow-up with their outpatient appointment for mental health and also for primary care. Mental status exam: General Appearance: Patient appears to be stated age is alert, pleasant, and cooperative. Patient is in no acute distress and has improved hygiene and grooming Behavior: Patient is calmly seated without any agitated behavior. Speech: Patient's speech is fluent and nonpressured. Mood/Affect: Patient reports their mood is "better", affect is congruent and euthymic. Suicidality/Homicidality: Patient denies having any suicidal or homicidal ideation intent or plan. Perceptions: Patient denies any auditory or visual hallucinations. Though content/process: There is no evidence of any delusional thought content and thought process is linear and goal-directed. more future oriented Memory and concentration: AOX3, grossly intact for the purposes of this session. Can spell "WORLD" backwards correctly. Judgment and insight: chronically poor, however has improved with guarded prognosis Impression: Major depressive disorder, recurrent, severe without psychotic features Cocaine abuse Cannabis use disorder Alcohol abuse Nicotine dependence Plan: -Continue with discharge today as patient has improved and stabilized psychiatrically and is not currently an imminent threat to herself and/or others. Patient will remain at chronically elevated risk for harm to self and/or others due to her impulsivity and polysubstance abuse. -Continue medications: Continue Zoloft 150 mg daily for anxiety/mood, BuSpar 15 mg 3 times a day for anxiety. -Patient was counseled on the need for medication compliance and appropriate follow-up at mental health and also primary care for medical issues. Patient verbalized understanding and agreed. -Social work to arrange for and conduct family meeting and will make contact with patient's friend (whom she will be staying with temporarily) to ensure safety upon discharge and answer any questions/concerns. Social work also to arrange for patients follow up appointments for psychiatric care along with follow up with primary care provider. -Patient will be discharged to friend's house temporarily and then will go to [facility]. -Patient counseled on abstaining from recreational drugs and marijuana and alcohol. Was informed/educated on the adverse effects on their physical and mental health. Patient verbally agreed and understood. -Patient was instructed to return to the hospital or seek immediate medical care if their psychiatric or medical symptoms do worsen or reoccur. Allergies Allergy/AdvReac Type Severity Reaction Status Date / Time Penicillins Allergy Rash/Hives Verified 06/20/20 13:53 Laboratory Results WBC 7.8 k/uL (3.8-10.6) 06/14/20 09:08 RBC 4.40 m/uL (3.80-5.40) 06/14/20 09:08 Hgb 13.7 gm/dL (11.4-16.0) 06/14/20 09:08 Hct 42.2 % (34.0-46.0) 06/14/20 09:08 MCV 95.9 fL (80.0-100.0) 06/14/20 09:08 MCH 31.2 pg (25.0-35.0) 06/14/20 09:08 MCHC 32.5 g/dL (31.0-37.0) 06/14/20 09:08 RDW 13.9 % (11.5-15.5) 06/14/20 09:08 Plt Count 326 k/uL (150-450) 06/14/20 09:08 Neutrophils % 68 % 06/14/20 09:08 Lymphocytes % 26 % 06/14/20 09:08 Monocytes % 3 % 06/14/20 09:08 Eosinophils % 2 % 06/14/20 09:08 Basophils % 1 % 06/14/20 09:08 Neutrophils # 5.3 k/uL (1.3-7.7) 06/14/20 09:08 Lymphocytes # 2.0 k/uL (1.0-4.8) 06/14/20 09:08 Monocytes # 0.2 k/uL (0-1.0) 06/14/20 09:08 Eosinophils # 0.1 k/uL (0-0.7) 06/14/20 09:08 Basophils # 0.0 k/uL (0-0.2) 06/14/20 09:08 Sodium 137 mmol/L (137-145) 06/14/20 09:08 Potassium 4.1 mmol/L (3.5-5.1) 06/14/20 09:08 Chloride 104 mmol/L (98-107) 06/14/20 09:08 Carbon Dioxide 26 mmol/L (22-30) 06/14/20 09:08 Anion Gap 7 mmol/L 06/14/20 09:08 BUN 14 mg/dL (7-17) 06/14/20 09:08 Creatinine 0.68 mg/dL (0.52-1.04) 06/14/20 09:08 Est GFR (CKD-EPI)AfAm >90 (>60 ml/min/1.73 sqM) 06/14/20 09:08 Est GFR (CKD-EPI)NonAf >90 (>60 ml/min/1.73 sqM) 06/14/20 09:08 Glucose 132 mg/dL (74-99) H 06/14/20 09:[address] Glu mg/dL 100 06/14/20 09:08 Hemoglobin A1c 5.1 % (4.0-6.0) 06/14/20 09:08 Calcium 9.5 mg/dL (8.4-10.2) 06/14/20 09:08 Total Bilirubin 0.8 mg/dL (0.2-1.3) 06/14/20 09:08 AST 34 U/L (14-36) 06/14/20 09:08 ALT 37 U/L (4-34) H 06/14/20 09:08 Alkaline Phosphatase 48 U/L (38-126) 06/14/20 09:08 Total Protein 6.8 g/dL (6.3-8.2) 06/14/20 09:08 Albumin 4.0 g/dL (3.5-5.0) 06/14/20 09:08 Triglycerides 149 mg/dL (<150) 06/14/20 09:08 Cholesterol 189 mg/dL (<200) 06/14/20 09:08 LDL Cholesterol, Calc 108 mg/dL (0-99) H 06/14/20 09:08 HDL Cholesterol 51 mg/dL (40-60) 06/14/20 09:08 TSH 0.475 mIU/L (0.465-4.680) 06/14/20 09:08 Urine Color Yellow 06/13/20 04:37 Urine Appearance Turbid (Clear) H 06/13/20 04:37 Urine pH 5.5 (5.0-8.0) 06/13/20 04:37 Ur Specific Mchenry 1.020 (1.001-1.035) 06/13/20 04:37 Urine Protein Trace (Negative) H 06/13/20 04:37 Urine Glucose (UA) Negative (Negative) 06/13/20 04:37 Urine Ketones Negative (Negative) 06/13/20 04:37 Urine Blood Negative (Negative) 06/13/20 04:37 Urine Nitrite Negative (Negative) 06/13/20 04:37 Urine Bilirubin Negative (Negative) 06/13/20 04:37 Urine Urobilinogen <2.0 mg/dL (<2.0) 06/13/20 04:37 Ur Leukocyte Esterase Negative (Negative) 06/13/20 04:37 Urine RBC 1 /hpf (0-5) 06/13/20 04:37 Urine WBC 1 /hpf (0-5) 06/13/20 04:37 Ur Squamous Epith Cells 1 /hpf (0-4) 06/13/20 04:37 Urine Mucus Rare /hpf (None) H 06/13/20 04:37 Urine HCG, Qual Not Detected (Not Detectd) 06/13/20 04:37 Urine Opiates Screen Not Detected (NotDetected) 06/13/20 04:37 Ur Oxycodone Screen Not Detected (NotDetected) 06/13/20 04:37 Urine Methadone Screen Not Detected (NotDetected) 06/13/20 04:37 Ur Propoxyphene Screen Not Detected (NotDetected) 06/13/20 04:37 Ur Barbiturates Screen Not Detected (NotDetected) 06/13/20 04:37 U Tricyclic Antidepress Not Detected (NotDetected) 06/13/20 04:37 Ur Phencyclidine Scrn Not Detected (NotDetected) 06/13/20 04:37 Ur Amphetamines Screen Not Detected (NotDetected) 06/13/20 04:37 U Methamphetamines Scrn Not Detected (NotDetected) 06/13/20 04:37 U Benzodiazepines Scrn Not Detected (NotDetected) 06/13/20 04:37 Urine Cocaine Screen Detected (NotDetected) H 06/13/20 04:37 U Marijuana (THC) Screen Detected (NotDetected) H 06/13/20 04:37 Coronavirus (PCR) Not Detected (Not Detectd) 06/17/20 18:30 Vital Signs Temp 97.9 F 06/22/20 02:36 Pulse 76 06/22/20 02:36 Resp 16 06/22/20 02:36 BP 141/80 06/22/20 02:36 Pulse Ox 97 06/22/20 02:36 Patient Condition at Discharge: Stable Plan - Discharge Summary Discharge Rx Participant: No New Discharge Prescriptions: New busPIRone HCL [Buspar] 15 mg PO TID 30 Days tab Folic Acid 1 mg PO DAILY 30 Days tab Ibuprofen [Motrin] 600 mg PO Q8H PRN 30 Days tab PRN Reason: Moderate To Severe Pain Multivitamins, Thera [Multivitamin (formulary)] 1 each PO DAILY 30 Days tab Pantoprazole [Protonix] 40 mg PO AC-BID 30 Days tablet. Acetaminophen Tab [Tylenol] 650 mg PO Q6HR PRN 30 Days tab PRN Reason: Pain/Discomfort Thiamine [Vitamin B-1] 100 mg PO DAILY 30 Days tab Sertraline [Zoloft] 150 mg PO DAILY 30 Days tab Discontinued Omeprazole 20 mg PO BID PARoxetine HCL [Paxil] 40 mg PO HS #30 tablet Discharge Medication List Acetaminophen Tab [Tylenol] 650 mg PO Q6HR PRN 30 Days tab 06/22/20 [Rx] Folic Acid 1 mg PO DAILY 30 Days tab 06/22/20 [Rx] Ibuprofen [Motrin] 600 mg PO Q8H PRN 30 Days tab 06/22/20 [Rx] Multivitamins, Thera [Multivitamin (formulary)] 1 each PO DAILY 30 Days tab 06/22/20 [Rx] Pantoprazole [Protonix] 40 mg PO AC-BID 30 Days tablet. 06/22/20 [Rx] Sertraline [Zoloft] 150 mg PO DAILY 30 Days tab 06/22/20 [Rx] Thiamine [Vitamin B-1] 100 mg PO DAILY 30 Days tab 06/22/20 [Rx] busPIRone HCL [Buspar] 15 mg PO TID 30 Days tab 06/22/20 [Rx] Follow up Appointment(s)/Referral(s): [facility] [Primary Care Provider] - 1-2 days Activity/Diet/Wound Care/Special Instructions: Activity and diet as tolerated. Avoid the use of street drugs and alcohol. Take all medications as prescribed. When you are in need of refills on your medications please contact your medical provider and/or outpatient psychiatrist to have this done. Please go to scheduled outpatient appointment for aftercare treatment. If symptoms return or become worse, call the crisis line at and/or go to the nearest emergency room for evaluation. Discharge Disposition: OTHER INSTITUTION NOT DEFINED
[2020-06-22] MEDS: ACETAMINOPHEN TAB 325 MG TAB PO PRN (10:53)
== END 2020-06-22 11:35 | disposition home or self-care (01) | DRG 885 ==
LOC: EC 04:01 → 3MHU 15:52
PROVIDERS: ADMIT Psychiatry & Neurology Psychiatry; ATTEND Psychiatry & Neurology Psychiatry
DX: F33.2 Major depressive disorder, recurrent severe without psychotic features (principal); R45.851 Suicidal ideations; F10.139 Alcohol abuse with withdrawal, unspecified; F10.129 Alcohol abuse with intoxication, unspecified; F14.10 Cocaine abuse, uncomplicated; J44.9 Chronic obstructive pulmonary disease, unspecified; Z20.828 Contact with and (suspected) exposure to other viral communicable diseases; F12.10 Cannabis abuse, uncomplicated; F41.9 Anxiety disorder, unspecified; R45.87 Impulsiveness; G25.81 Restless legs syndrome; G47.00 Insomnia, unspecified; M19.90 Unspecified osteoarthritis, unspecified site; G89.29 Other chronic pain; M54.9 Dorsalgia, unspecified; M41.9 Scoliosis, unspecified; F17.210 Nicotine dependence, cigarettes, uncomplicated; K21.9 Gastro-esophageal reflux disease without esophagitis; Z71.6 Tobacco abuse counseling; Z79.899 Other long term (current) drug therapy; Z91.5 Personal history of self-harm; Z56.0 Unemployment, unspecified; Z87.01 Personal history of pneumonia (recurrent); Z86.14 Personal history of Methicillin resistant Staphylococcus aureus infection; Z86.69 Personal history of other diseases of the nervous system and sense organs; Z59.0 Homelessness; Z80.9 Family history of malignant neoplasm, unspecified; Z88.0 Allergy status to penicillin; Z82.3 Family history of stroke; Z82.49 Family history of ischemic heart disease and other diseases of the circulatory system
CPT/HCPCS: 80053; 80061; 80306; 81001; 81025; 82075; 83036; 84443; 85025; 87635; 99285